=== PATIENT | male | born 1955 | race Caucasian/White ===

== ENCOUNTER 2020-08-26 10:26 | Outpatient (REF) | payer MEDICARE, SELFPAY ==
[2020-08-26 11:00] LABS: Estimated Average Glucose 105 mg/dL; Hemoglobin A1c % 5.3 %
[2020-08-26 11:20] LABS: Alanine Aminotransferase 20 U/L (0-40); Albumin Level 3.5 g/dL (3.5-5.0); Alkaline Phosphatase 54 U/L (39-117); Aspartate Amino Transferase 18 U/L (5-37); Bilirubin Direct < 0.2 mg/dL (0.0-0.5); Bilirubin Total 0.4 mg/dL (0.0-1.0); Cholesterol 133 mg/dL; Creatinine Urine 114.78 mg/dL; HDL Cholesterol 47 mg/dL; LDL Cholesterol Calculated 64 mg/dl; Microalbum/Creatinine Ratio Ur 8.7 ug/mg cr; Total Protein 6.2 g/dL (6.5-8.0); Triglycerides 113 mg/dL
[2020-08-26 13:03] LABS: Reflex LDLD? No
== END 2020-08-26 10:27 | disposition home or self-care (01) ==
LOC: HO.LNP 10:26
PROVIDERS: PCP Internal Medicine; Visit Provider Internal Medicine
DX: E11.9 Type 2 diabetes mellitus without complications (principal); E78.00 Pure hypercholesterolemia, unspecified
CPT/HCPCS: 80061; 80076; 82043; 83036

== ENCOUNTER 2020-11-13 21:27 | Emergency (ER) | payer MEDICARE, SELFPAY ==
--- NOTE | ~2020-11-13 | CT_ITS ---
EXAMINATION: CT ABDOMEN AND PELVIS WITH CONTRAST CLINICAL INFORMATION: Lower abdominal pain. colitis? appendicitis? COMPARISON: CT abdomen pelvis 03/20/2016 TECHNIQUE: Multidetector volumetric images were obtained from the superior aspect of the liver through the pubic symphysis following administration 85 mL of Omnipaque 350 intravenous contrast. Sagittal and coronal reformatted images were obtained on the technologist's workstation. Oral contrast: No This CT examination was performed using dose optimization techniques as appropriate, variously including the following: *Automated exposure control *Adjustment of mA and/or kV according to patient size (this includes techniques or standardized protocols for targeted exams where dose is matched to indication/reason for exam; i.e. extremities or head) *Use of iterative reconstruction technique DLP: 770 mGy-cm FINDINGS: LUNG BASES: The visualized lung bases are unremarkable. LIVER, GALLBLADDER, AND BILIARY TREE: The liver is normal in size, shape, and attenuation. No focal hepatic lesion or biliary ductal dilatation is present. The gallbladder is contracted but otherwise unremarkable with no evidence of radiopaque gallstones, gallbladder wall thickening, or obvious pericholecystic inflammatory changes. PANCREAS: Unremarkable. SPLEEN: Unremarkable. ADRENAL GLANDS: Unremarkable. KIDNEYS AND URETERS: The kidneys are normal in size, shape, and attenuation. No hydronephrosis, hydroureter, or calculi seen. No perinephric stranding. BLADDER: Unremarkable. GASTROINTESTINAL TRACT: Diverticular changes are present throughout the colon, most marked in the sigmoid. In the mid sigmoid there are phlegmonous changes and wall thickening consistent with acute diverticulitis. No extraluminal air or drainable pericolonic fluid collections are seen. These findings of diverticulitis are new when compared to the 2016 study. The small and large bowel are otherwise unremarkable. The appendix is unremarkable. ABDOMINAL WALL: No significant hernia is appreciated. Tiny bilateral inguinal hernia seen containing only fat. LYMPH NODES: No retroperitoneal lymphadenopathy. VASCULAR: Marked calcific plaque present in the aorta and iliofemoral vessels. No aneurysm. PELVIC VISCERA: Prostate and seminal vesicles appear normal. OSSEOUS STRUCTURES: Degenerative changes present in the spine most marked at L2-L3 L3-L4 and L5-S1. There is minimal anterolisthesis present of L4 upon L5. No bony destructive lesions seen. CT/CT abdomen pelvis w con IMPRESSION: Acute uncomplicated sigmoid diverticulitis.
[2020-11-13 21:45] VITALS: BP 112/70; PULSE 74; RESP 18; TEMP 36.8; O2SAT 95; BMI 37.5
--- NOTE | 2020-11-13 22:43 | ED_ITS ---
HPI - Male Genitourinary General Chief complaint: Urogenital-Male Stated complaint: pain in groin Time Seen by Provider: 11/13/20 22:13 Source: patient Mode of arrival: ambulatory Limitations: no limitations History of Present Illness HPI Narrative: Patient presents to ED for bilateral lower abdominal pain. Patient denies any dysuria, hematuria, diarrhea, fever, chills, testicular pain, flank pain, or any blood in stool. Patient states history of colitis and UTI. Patient denies any testicular pain, penile discharge, or penile lesions. Patient denies any groin pain. Related Data Previous Rx's Medication Instructions Recorded ciprofloxacin HCl 500 mg tablet 500 mg PO Q12H 7 Days #14 tab 11/14/20 metronidazole 500 mg tablet 500 mg PO Q12H #14 tab 11/14/20 naproxen 500 mg tablet 500 mg PO BID PRN #20 tab 11/14/20 Allergies Allergy/AdvReac Type Severity Reaction Status Date / Time cephalexin [From KEFLEX] Allergy Intermediate RASH Verified 11/13/20 21:52 codeine [CODEINE] Allergy Intermediate RASH Verified 11/13/20 21:52 sulfamethoxazole Allergy Intermediate RASH Verified 11/13/20 21:52 [From SEPTRA] trimethoprim [From SEPTRA] Allergy Intermediate RASH Verified 11/13/20 21:52 Review of Systems Review of Systems: Yes all other systems are reviewed and are negative Constitutional: Constitutional: Reports as per HPI and Reports no additional constitutional complaints Eyes: Eyes: Reports as per HPI and Reports no additional eye complaints ENT: Reports system reviewed and no additional complaints, except as documented and Reports as per HPI Cardiovascular: Cardiovascular: Reports as per HPI and Reports no additional cardiovascular complaints Respiratory: Respiratory: Reports as per HPI and Reports no additional respiratory complaints Gastrointestinal: Gastrointestinal: Reports as per HPI, Reports no additional gastrointestinal complaints and Reports abdominal pain Genitourinary: Genitourinary: Reports no additional male genitourinary complaints and Reports as per HPI Musculoskeletal: Musculoskeletal: Reports no additional musculoskeletal complaints and Reports as per HPI Integumentary/Breasts: Skin/Breast: Reports system reviewed and no additional complaints, except as docu and Reports as per HPI Neurologic: Reports system reviewed and no additional complaints, except as documented and Reports as per HPI Psychiatric: Psychiatric: Reports no additional psychiatric complaints and Reports as per HPI [facility] Past Medical History Medical History (Updated 11/14/20 @ 00:58 by DANIELLE Melton) Depression Enlarged prostate GERD (gastroesophageal reflux disease) Heart attack HTN (hypertension) Hyperlipidemia UTI (urinary tract infection) Surgical History (Updated 11/13/20 @ 21:50 by Shilpa Llamas) H/O heart artery stent Social History Social History Advance Directives: No Advance Directives Information Provided: No Physical Exam Vital Signs: Vital Signs: Last Vital Signs Temp 98.8 F 11/14/20 00:58 Pulse 73 11/14/20 00:58 Resp 16 11/14/20 00:58 BP 118/78 11/14/20 00:58 Pulse Ox 96 11/14/20 00:58 Body Mass Index 37.5 Const: General: cooperative, healthy appearing, comfortable, no acute distress, well developed, alert, awake and Physically active Orientation/c onsciousness: patient oriented x3 HENMT: Head: Yes normal to inspection, Yes No palpable skull fracture present, Yes normocephalic, Yes atraumatic and No abrasion Eyes: General: appearance normal, both eyes and all related structures Neck: Neck: Yes normal visual inspection, Yes full ROM, Yes no lymphadenopathy, Yes no meningeal signs, Yes trachea midline, Yes supple and No tender Chest: Chest palpation & inspection: normal inspection of the chest and normal palpation of entire chest wall Resp: Effort & Inspection: normal respiratory effort and able to speak in complete sentences Auscultation: clear to auscultation bilaterally Cardio: Jugular venous distension: no JVD Heart sounds: S1 normal heart tiago nd present and S2 normal heart sound present GI: Inspection: Yes normal to inspection and No abdominal wall ecchymosis Palpation (GI): Soft to palpation, not firm, Tenderness to palpation present (GI) in the LLQ and in the RLQ; Negative for not periumbilically, not suprapubicly, Hayes's sign negative, obturator sign negative, psoas sign negative, with no rebound tenderness and Rovsing's sign negative and no guarding : General: No CVA tenderness and Yes no CVA tenderness Back/Spine/Pelvis: Back: no CVA tenderness, No CVA tenderness and No back tenderness Skin: General skin exam: no rashes or lesions noted and elasticity normal Neuro: General: patient oriented x3, no meningeal signs and CN's II-XI intact bilaterally Cranial nerves: Yes CN's II-XII intact bilaterally Extrem: General: Yes normal to inspection and Yes full ROM Psych: Appearance: grossly normal, well kempt and not disheveled Course Course Course Narrative: Urinalysis sent. Reevaluation(s) Reevaluation #1: UA came back negative for UTI. Will do labs and send patient for abdominal CT scan to evaluate lower abdominal pain. Time: 23:10 Reevaluation #2: labs are at baseline. CT scan pending. Case sigend out to DANIELLE CABRERA. patient is not in any distress. Reevaluation #3: CT scan shows diverticulitis. Patient will be discharged. Time: 13:02 MDM - Male Genitourinary MDM Narrative Medical decision making narrative: Abdominal pain Lab Data Result diagrams: 11/13/20 23:08 11/13/20 23:08 Labs: Lab Results 11/13/20 11/13/20 11/13/20 Range/Units 22:38 23:08 23:08 WBC 8.6 (4.8-10.8) X10*3/uL RBC 4.38 L (4.60-5.80) X10*6/uL Hgb 13.1 L (14.0-18.0) g/dl Hct 39.2 L (42-52) % MCV 89.5 (80-98) fL MCH 29.9 (27.0-33.0) pg MCHC 33.4 (31.0-36.0) g/dl RDW 13.5 (11.0-16.0) % Plt Count 151 L (160-400) X10*3/uL MPV 9.4 (9.4-12.4) fL Immature Gran % (Auto) 0.3 (0.0-0.4) % Neut % (Auto) 69.6 (45-73) % Lymph % (Auto) 18.5 L (20-40) % [place] % (Auto) 9.5 (2-11) % Eos % (Auto) 1.6 (0-4) % Baso % (Auto) 0.5 (0-2) % Lymph # (Auto) 1.6 (1.2-4.9) X10*3/uL [place] # (Auto) 0.8 (0.1-1.2) X10*3/uL Eos # (Auto) 0.1 (0.0-0.4) X10*3/uL Baso # (Auto) 0.0 (0.0-0.2) X10*3/uL Abs Immat Gran (auto) 0.03 (0.00-0.03) X10*3/uL Absolute Neuts (auto) 6.0 (2.0-8.3) X10*3/uL Absolute Nucleated RBC 0.000 (0.0-0.012) X10*3/uL Nucleated RBC % (auto) 0.0 (0.0-0.2) /100WBC Sodium 141 (135-145) mmol/L Potassium 4.0 (3.3-5.1) mmol/L Chloride 106 (96-108) mmol/L Carbon Dioxide 27 (22-29) mmol/L Anion Gap 12 (12-20) BUN 11 (9-16) mg/dL Creatinine 0.77 (0.5-1.4) mg/dL Estim Creat Clear Calc 109.5 Estimated GFR > 60 Random Glucose 106 (60-115) mg/dL Calcium 8.6 (8.4-10.2) mg/dL Total Bilirubin 0.5 (0.0-1.0) mg/dL AST 16 (5-37) U/L ALT 18 (0-40) U/L Alkaline Phosphatase 53 (39-117) U/L Total Protein 6.5 (6.5-8.0) g/dL Albumin 3.6 (3.5-5.0) g/dL Urine Color YELLOW Urine Appearance CLEAR Urine pH 7.0 (5.0-8.0) Ur Specific [place] 1.010 (1.005-1.025) Urine Protein NEG (NEG-TRACE) MG/DL Urine Glucose (UA) NEG (NEG) MG/DL Urine Ketones NEG (NEG) MG/DL Urine Blood NEG (NEG) Urine Nitrite NEG (NEG) Ur Leukocyte Esterase NEG (NEG) Discharge Plan Discharge Clinical Impression: Diverticulitis Patient Disposition: Home, Self-Care Instructions: Diverticulitis (ED) Additional Instructions: Abdominal CT scan shows diverticulitis. He will need oral antibiotics. You will be discharged with pain medication. Return to the ED for worsening pain, fever, chills, nausea, vomiting, worsening abdominal pain, blood in stool, or any other concerning symptoms. Please follow up with PCP Prescriptions: New ciprofloxacin HCl 500 mg tablet 500 mg PO Q12H 7 Days Qty: 14 RF: 0 metronidazole 500 mg tablet 500 mg PO Q12H Qty: 14 RF: 0 naproxen 500 mg tablet 500 mg PO BID PRN (Reason: pain) Qty: 20 RF: 0 Print Language: Icelandic
[2020-11-13 22:44] LABS: Glucose Urine UA NEG (NEG); Leukocyte Esterase Urine NEG (NEG); Nitrite Urine NEG (NEG); Urine Blood NEG (NEG); Urine Ketones NEG (NEG); Urine Protein NEG (NEG-TRACE)
[2020-11-13 22:45] LABS: Appearance Urine CLEAR; Color Urine YELLOW
[2020-11-13 23:13] LABS: Basophils Percent Auto 0.5 % (0-2); Eosinophils Absolute Auto 0.1 X10*3/uL (0.0-0.4); Eosinophils Percent Auto 1.6 % (0-4); Hematocrit 39.2 % (42-52); Hemoglobin 13.1 g/dl (14.0-18.0); Imm Gran Abs Auto 0.03 X10*3/uL (0.00-0.03); Imm Gran Pct Auto 0.3 % (0.0-0.4); Lymphocytes Absolute Auto 1.6 X10*3/uL (1.2-4.9); Lymphocytes Percent Auto 18.5 % (20-40); MANUAL DIFF FLAG NO; Mean Corpuscular HGB Conc 33.4 g/dl (31.0-36.0); Mean Corpuscular Hemoglobin 29.9 pg (27.0-33.0); Mean Corpuscular Volume 89.5 fL (80-98); Mean Platelet Volume 9.4 fL (9.4-12.4); Monocytes Absolute Auto 0.8 X10*3/uL (0.1-1.2); Monocytes Percent Auto 9.5 % (2-11); Neutrophils Percent Auto 69.6 % (45-73); Platelet Count 151 X10*3/uL (160-400); Red Blood Count 4.38 X10*6/uL (4.60-5.80); Red Cell Distribution Width 13.5 % (11.0-16.0); White Blood Count 8.6 X10*3/uL (4.8-10.8)
[2020-11-13 23:40] LABS: Alanine Aminotransferase 18 U/L (0-40); Albumin Level 3.6 g/dL (3.5-5.0); Alkaline Phosphatase 53 U/L (39-117); Anion Gap 12 (12-20); Aspartate Amino Transferase 16 U/L (5-37); Bilirubin Total 0.5 mg/dL (0.0-1.0); Blood Urea Nitrogen 11 mg/dL (9-16); Calcium 8.6 mg/dL (8.4-10.2); Carbon Dioxide 27 mmol/L (22-29); Chloride 106 mmol/L (96-108); Creatinine Clr Calc Pharmacy 109.5; Estimated Glomerular Filt Rate > 60; Glucose Random 106 mg/dL (60-115); Sodium 141 mmol/L (135-145); Total Protein 6.5 g/dL (6.5-8.0)
[2020-11-14] MEDS: iohexoL 350 MG/ML 100 ML INFUS..BTL IV (00:36)
[2020-11-14 00:58] VITALS: BP 118/78; PULSE 73; RESP 16; TEMP 37.1; O2SAT 96
== END 2020-11-14 01:13 | disposition home or self-care (01) ==
PROVIDERS: Physician Assistant; Emergency Provider Emergency Medicine; PCP Internal Medicine
DX: K57.92 Diverticulitis of intestine, part unspecified, without perforation or abscess without bleeding (principal); I10 Essential (primary) hypertension
CPT/HCPCS: 36415; 74177; 80053; 81003; 85025; 99284; Q9967

== ENCOUNTER 2020-12-07 17:07 | Emergency (ER) | payer MEDICARE, SELFPAY ==
[2020-12-07 17:28] VITALS: BP 139/74; PULSE 69; RESP 16; TEMP 36.6; O2SAT 98; BMI 37.5
[2020-12-07 19:30] LABS: MANUAL DIFF FLAG NO
[2020-12-07 19:32] LABS: Basophils Percent Auto 0.5 % (0-2); Eosinophils Absolute Auto 0.2 X10*3/uL (0.0-0.4); Eosinophils Percent Auto 2.6 % (0-4); Hematocrit 41.3 % (42-52); Hemoglobin 13.8 g/dl (14.0-18.0); Imm Gran Abs Auto 0.02 X10*3/uL (0.00-0.03); Imm Gran Pct Auto 0.3 % (0.0-0.4); Lymphocytes Absolute Auto 2.1 X10*3/uL (1.2-4.9); Lymphocytes Percent Auto 27.2 % (20-40); Mean Corpuscular HGB Conc 33.4 g/dl (31.0-36.0); Mean Corpuscular Hemoglobin 29.6 pg (27.0-33.0); Mean Corpuscular Volume 88.6 fL (80-98); Mean Platelet Volume 9.4 fL (9.4-12.4); Monocytes Absolute Auto 0.6 X10*3/uL (0.1-1.2); Monocytes Percent Auto 7.3 % (2-11); Neutrophils Absolute Auto 4.7 X10*3/uL (2.0-8.3); Neutrophils Percent Auto 62.1 % (45-73); Platelet Count 176 X10*3/uL (160-400); Red Blood Count 4.66 X10*6/uL (4.60-5.80); Red Cell Distribution Width 13.3 % (11.0-16.0); White Blood Count 7.6 X10*3/uL (4.8-10.8)
[2020-12-07 19:35] LABS: Glucose Urine UA NEG (NEG); Leukocyte Esterase Urine NEG (NEG); Nitrite Urine NEG (NEG); Specific Gravity - Urine <= 1.005 (1.005-1.025); Urine Blood NEG (NEG); Urine Ketones NEG (NEG); Urine Protein NEG (NEG-TRACE)
[2020-12-07 19:39] LABS: Appearance Urine CLEAR; Color Urine YELLOW
--- NOTE | 2020-12-07 19:43 | ED_ITS ---
HPI - Abdominal Pain General Chief Complaint: Abdominal Pain Stated Complaint: back pain Time Seen by Provider: 12/07/20 19:43 Source: patient Mode of arrival: ambulatory Limitations: no limitations History of Present Illness HPI narrative: Patient complaining of left flank pain for last 3 days associated with nausea patient took the course of Flagyl and Cipro for diverticulitis diagnosed on 11/14 no kidney stone in the past pain get worse and patient moves no nausea no vomiting no diarrhea no melena no dysuria no blood in the urine no fever or chills patient has good appetite Related Data Previous Rx's Medication Instructions Recorded ciprofloxacin HCl 500 mg tablet 500 mg PO Q12H 7 Days #14 tab 11/14/20 metronidazole 500 mg tablet 500 mg PO Q12H #14 tab 11/14/20 naproxen 500 mg tablet 500 mg PO BID PRN #20 tab 11/14/20 tramadol 50 mg tablet 50 mg PO Q6H PRN #20 tab 12/07/20 Allergies Allergy/AdvReac Type Severity Reaction Status Date / Time cephalexin [From KEFLEX] Allergy Intermediate RASH Verified 12/07/20 17:33 codeine [CODEINE] Allergy Intermediate RASH Verified 12/07/20 17:33 sulfamethoxazole Allergy Intermediate RASH Verified 12/07/20 17:33 [From SEPTRA] trimethoprim [From SEPTRA] Allergy Intermediate RASH Verified 12/07/20 17:33 Review of Systems Review of Systems Yes all other systems are reviewed and are negative Physical Exam Vital Signs: Vital Signs: Last Vital Signs Temp 97.8 F 12/07/20 17:28 Pulse 66 12/07/20 19:56 Resp 16 12/07/20 19:56 BP 122/70 12/07/20 19:56 Pulse Ox 98 12/07/20 19:56 Body Mass Index 37.5 Appearance: Alert. Oriented X3. No acute distress. Eyes: No pallor or icterus ENT: Pharynx normal. Oral Mucosa moist Neck: Normal inspection. Neck supple. CVS: Normal heart rate and rhythm. Pulses normal. Respiratory: No respiratory distress. Equal air entry bilateral, no wheezing/rales/rhonchi Abdomen: Soft and nontender. Bowel sounds are present, no mass palpable, left lumbar paraspinal tenderness Skin: Skin warm and dry. Normal skin color. Normal skin turgor. Extremities: No lower extremity edema. No calf tenderness Neuro: Oriented X 3. No motor deficit. No sensory deficit.No cerebellar signs , cranial nerves II-XII intact MDM - Abdominal Pain MDM Narrative Medical decision making narrative: Patient with left-sided flank pain with negative CT scan in the past for stones pain is more muscular when he moves pain get worse urine is negative labs negative patient feeling better after oxycodone will discharge patient home on tramadol Lab Data Attestation: I reviewed the patient's lab results. Result diagrams: 12/07/20 19:23 12/07/20 19:20 Labs: Lab Results 12/07/20 12/07/20 12/07/20 Range/Units 19:20 19:20 19:23 WBC 7.6 (4.8-10.8) X10*3/uL RBC 4.66 (4.60-5.80) X10*6/uL Hgb 13.8 L (14.0-18.0) g/dl Hct 41.3 L (42-52) % MCV 88.6 (80-98) fL MCH 29.6 (27.0-33.0) pg MCHC 33.4 (31.0-36.0) g/dl RDW 13.3 (11.0-16.0) % Plt Count 176 (160-400) X10*3/uL MPV 9.4 (9.4-12.4) fL Immature Gran % (Auto) 0.3 (0.0-0.4) % Neut % (Auto) 62.1 (45-73) % Lymph % (Auto) 27.2 (20-40) % [place] % (Auto) 7.3 (2-11) % Eos % (Auto) 2.6 (0-4) % Baso % (Auto) 0.5 (0-2) % Lymph # (Auto) 2.1 (1.2-4.9) X10*3/uL [place] # (Auto) 0.6 (0.1-1.2) X10*3/uL Eos # (Auto) 0.2 (0.0-0.4) X10*3/uL Baso # (Auto) 0.0 (0.0-0.2) X10*3/uL Abs Immat Gran (auto) 0.02 (0.00-0.03) X10*3/uL Absolute Neuts (auto) 4.7 (2.0-8.3) X10*3/uL Absolute Nucleated RBC 0.000 (0.0-0.012) X10*3/uL Nucleated RBC % (auto) 0.0 (0.0-0.2) /100WBC Sodium 143 (135-145) mmol/L Potassium 4.4 (3.3-5.1) mmol/L Chloride 108 (96-108) mmol/L Carbon Dioxide 28 (22-29) mmol/L Anion Gap 11 L (12-20) BUN 10 (9-16) mg/dL Creatinine 0.73 (0.5-1.4) mg/dL Estim Creat Clear Calc 115.5 Estimated GFR > 60 Random Glucose 95 (60-115) mg/dL Calcium 8.9 (8.4-10.2) mg/dL Total Bilirubin 0.5 (0.0-1.0) mg/dL Direct Bilirubin 0.2 (0.0-0.5) mg/dL AST 20 (5-37) U/L ALT 21 (0-40) U/L Alkaline Phosphatase 56 (39-117) U/L Total Protein 7.2 (6.5-8.0) g/dL Albumin 4.0 (3.5-5.0) g/dL Lipase 28 (8-78) U/L Urine Color YELLOW Urine Appearance CLEAR Urine pH 6.0 (5.0-8.0) Ur Specific [place] <= 1.005 (1.005-1.025) Urine Protein NEG (NEG-TRACE) MG/DL Urine Glucose (UA) NEG (NEG) MG/DL Urine Ketones NEG (NEG) MG/DL Urine Blood NEG (NEG) Urine Nitrite NEG (NEG) Ur Leukocyte Esterase NEG (NEG) Discharge Plan Discharge Clinical Impression: Acute lumbar myofascial strain Qualifiers: Encounter type: initial encounter Qualified Code(s): S39.012A - Strain of muscle, fascia and tendon of lower back, initial encounter Patient Disposition: Home, Self-Care Instructions: Acute Low Back Pain (ED) Additional Instructions: Rest at home take pain medication as prescribed Follow with PCP if not better Report to ER if increased abdominal pain/fever/vomiting Prescriptions: New tramadol 50 mg tablet 50 mg PO Q6H PRN (Reason: pain) Qty: 20 RF: 0 No Action ciprofloxacin HCl 500 mg tablet 500 mg PO Q12H 7 Days Qty: 14 RF: 0 metronidazole 500 mg tablet 500 mg PO Q12H Qty: 14 RF: 0 naproxen 500 mg tablet 500 mg PO BID PRN (Reason: pain) Qty: 20 RF: 0 PMFSH Past Medical History Medical History Depression Enlarged prostate GERD (gastroesophageal reflux disease) Heart attack HTN (hypertension) Hyperlipidemia UTI (urinary tract infection) Surgical History H/O heart artery stent Social History Social History Advance Directives: No Advance Directives Information Provided: No
[2020-12-07 19:44] LABS: Anion Gap 11 (12-20); Blood Urea Nitrogen 10 mg/dL (9-16); Calcium 8.9 mg/dL (8.4-10.2); Carbon Dioxide 28 mmol/L (22-29); Chloride 108 mmol/L (96-108); Creatinine Clr Calc Pharmacy 115.5; Estimated Glomerular Filt Rate > 60; Glucose Random 95 mg/dL (60-115); Potassium 4.4 mmol/L (3.3-5.1); Sodium 143 mmol/L (135-145)
[2020-12-07] MEDS: oxyCODONE HCl Immed Release 5 MG TABLET PO (19:54)
[2020-12-07 19:56] VITALS: BP 122/70; PULSE 66; RESP 16; O2SAT 98
[2020-12-07 20:11] LABS: Alanine Aminotransferase 21 U/L (0-40); Alkaline Phosphatase 56 U/L (39-117); Aspartate Amino Transferase 20 U/L (5-37); Bilirubin Direct 0.2 mg/dL (0.0-0.5); Bilirubin Total 0.5 mg/dL (0.0-1.0); Lipase 28 U/L (8-78); Total Protein 7.2 g/dL (6.5-8.0)
== END 2020-12-07 20:48 | disposition home or self-care (01) ==
PROVIDERS: Emergency Provider Internal Medicine; PCP Internal Medicine
DX: S39.012A Strain of muscle, fascia and tendon of lower back, initial encounter (principal); X58.XXXA Exposure to other specified factors, initial encounter; I10 Essential (primary) hypertension; Y93.9 Activity, unspecified; Y92.9 Unspecified place or not applicable; Y99.9 Unspecified external cause status
CPT/HCPCS: 36415; 80048; 80076; 81003; 83690; 85025; 99283; 99284

== ENCOUNTER 2020-12-23 16:05 | Outpatient (REF) | payer MEDICARE, SELFPAY ==
--- NOTE | ~2020-12-23 | US_ITS ---
EXAMINATION: US VENOUS ULTRASOUND WITH DOPPLER LOWER EXTREMITY, RIGHT CLINICAL INFORMATION: History of DVT with right lower extremity pain COMPARISON: None TECHNIQUE: Ultrasound of the deep veins is performed from the hip to the calf with compression sonography and color and pulse Doppler assessment. Spectral analysis with color-flow imaging is performed. FINDINGS: There is normal venous compression and respiratory variation and augmented flow. The visualized common femoral vein, superficial femoral vein, profunda femoral vein, popliteal vein, and the trifurcation region shows no evidence of deep venous thrombosis. There is no significant popliteal fossa cyst. If the patient's symptoms persist, followup ultrasound in 5 days 7 days might be of value to exclude proximal propagation from a non-visualized calf vein. US/US venous duplex LE RT IMPRESSION: No DVT demonstrated in the right lower extremity.
[2020-12-23 16:54] LABS: Blood Urea Nitrogen 15 mg/dL (9-16); Estimated Glomerular Filt Rate > 60
== END 2020-12-23 16:06 | disposition home or self-care (01) ==
LOC: HO.US 16:05
PROVIDERS: PCP Internal Medicine; Visit Provider Internal Medicine
DX: R60.0 Localized edema (principal); K57.32 Diverticulitis of large intestine without perforation or abscess without bleeding; M79.89 Other specified soft tissue disorders
CPT/HCPCS: 36415; 82565; 84520; 93971

== ENCOUNTER 2020-12-30 12:58 | Outpatient (REF) | payer MEDICARE, SELFPAY ==
--- NOTE | ~2020-12-30 | CT_ITS ---
EXAMINATION: CT ABDOMEN AND PELVIS WITH CONTRAST CLINICAL INFORMATION: Diverticulitis COMPARISON: Previous CT of the abdomen and pelvis November 2020 TECHNIQUE: Multidetector volumetric images were obtained from the superior aspect of the liver through the pubic symphysis following administration 85 mL of Omnipaque 350 intravenous contrast. Sagittal and coronal reformatted images were obtained on the technologist's workstation. Oral contrast: Yes This CT examination was performed using dose optimization techniques as appropriate, variously including the following: *Automated exposure control *Adjustment of mA and/or kV according to patient size (this includes techniques or standardized protocols for targeted exams where dose is matched to indication/reason for exam; i.e. extremities or head) *Use of iterative reconstruction technique DLP: 641 mGy-cm FINDINGS: LUNG BASES: The visualized lung bases are unremarkable. LIVER, GALLBLADDER, AND BILIARY TREE: The liver is normal in size, shape, and attenuation. No focal hepatic lesion or biliary ductal dilatation is present. The gallbladder is unremarkable with no evidence of radiopaque gallstones, gallbladder wall thickening, or obvious pericholecystic inflammatory changes. PANCREAS: Unremarkable. SPLEEN: Unremarkable. ADRENAL GLANDS: Unremarkable. KIDNEYS AND URETERS: The kidneys are normal in size, shape, and attenuation. No hydronephrosis, hydroureter, or calculi seen. No perinephric stranding. BLADDER: Unremarkable. GASTROINTESTINAL TRACT: There is diverticulosis of the colon. The previously identified diverticulitis of the sigmoid colon has resolved. Throughout the colon questionable for constipation. Small and large bowel is otherwise unremarkable. The stomach is not optimally distended. The appendix is unremarkable. ABDOMINAL WALL: No significant hernia is appreciated. LYMPH NODES: Normal. VASCULAR: There is evidence of atherosclerotic disease. No aneurysm is seen. PELVIC VISCERA: Unremarkable. OSSEOUS STRUCTURES: There are degenerative changes of the spine. CT/CT abdomen pelvis w con IMPRESSION: Diverticulosis of the colon. Resolved sigmoid diverticulitis from November 2020.
[2020-12-30] MEDS: iohexoL 350 MG/ML 100 ML INFUS..BTL IV (15:49)
[2020-12-30] MEDS: Barium Sulfate Oral (Mocha) 450 ML ORAL.SUSP 900 ML PO (15:49)
== END 2020-12-30 12:59 | disposition home or self-care (01) ==
LOC: HO.CT 12:58
PROVIDERS: PCP Internal Medicine; Visit Provider Internal Medicine
DX: K57.32 Diverticulitis of large intestine without perforation or abscess without bleeding (principal)
CPT/HCPCS: 74177; Q9967

== ENCOUNTER 2021-02-18 10:57 | Outpatient (REF) | payer MEDICARE, SELFPAY ==
[2021-02-18 11:02] LABS: MANUAL DIFF FLAG NO
[2021-02-18 11:38] LABS: Basophils Percent Auto 0.7 % (0-2); Eosinophils Absolute Auto 0.3 X10*3/uL (0.0-0.4); Eosinophils Percent Auto 4.7 % (0-4); Hematocrit 42.7 % (42.0-52.0); Hemoglobin 13.9 g/dl (14.0-18.0); Imm Gran Abs Auto 0.02 X10*3/uL (0.00-0.03); Imm Gran Pct Auto 0.3 % (0.0-0.4); Lymphocytes Absolute Auto 1.7 X10*3/uL (1.2-4.9); Lymphocytes Percent Auto 26.9 % (20-40); Mean Corpuscular HGB Conc 32.6 g/dl (31.0-36.0); Mean Corpuscular Hemoglobin 29.6 pg (27.0-33.0); Mean Corpuscular Volume 90.9 fL (80.0-98.0); Mean Platelet Volume 10.4 fL (9.4-12.4); Monocytes Absolute Auto 0.5 X10*3/uL (0.1-1.2); Monocytes Percent Auto 8.1 % (2-11); Neutrophils Absolute Auto 3.6 x10*3/uL (2.0-8.3); Neutrophils Percent Auto 59.3 % (45-73); Platelet Count 149 X10*3/uL (160-400); Red Cell Distribution Width 13.6 % (11.0-16.0); White Blood Count 6.1 X10*3/uL (4.8-10.8)
[2021-02-18 11:48] LABS: Appearance Urine CLEAR; Color Urine YELLOW; Glucose Urine UA NEG (NEG); Leukocyte Esterase Urine NEG (NEG); Nitrite Urine NEG (NEG); Urine Blood NEG (NEG); Urine Ketones NEG (NEG); Urine Protein NEG (NEG-TRACE)
[2021-02-18 11:54] LABS: Estimated Average Glucose 105 mg/dL; Hemoglobin A1c % 5.3 %
[2021-02-18 12:04] LABS: Creatinine Urine 100.91 mg/dL; Microalbum/Creatinine Ratio Ur 7.9 ug/mg cr
[2021-02-18 12:49] LABS: Alanine Aminotransferase 19 U/L (0-40); Albumin Level 3.5 g/dL (3.5-5.0); Alkaline Phosphatase 50 U/L (39-117); Anion Gap 13 (12-20); Aspartate Amino Transferase 15 U/L (5-37); Bilirubin Total 0.4 mg/dL (0.0-1.0); Blood Urea Nitrogen 13 mg/dL (9-16); Calcium 8.5 mg/dL (8.4-10.2); Carbon Dioxide 28 mmol/L (22-29); Chloride 105 mmol/L (96-108); Cholesterol 113 mg/dL; Estimated Glomerular Filt Rate > 60; Glucose Fasting 115 mg/dL (60-99); HDL Cholesterol 41 mg/dL; LDL Cholesterol Calculated 58 mg/dl; Potassium 4.5 mmol/L (3.3-5.1); Sodium 141 mmol/L (135-145); Total Protein 6.5 g/dL (6.5-8.0); Triglycerides 71 mg/dL
[2021-02-18 13:12] LABS: PSA,Total (Free>4and<10) 1.12 ng/mL (0.00-4.00)
[2021-02-18 14:01] LABS: Reflex LDLD? No
== END 2021-02-18 10:58 | disposition home or self-care (01) ==
LOC: HO.LNP 10:57
PROVIDERS: Visit Provider Internal Medicine
DX: Z00.00 Encounter for general adult medical examination without abnormal findings (principal); E11.9 Type 2 diabetes mellitus without complications; E78.6 Lipoprotein deficiency; E78.00 Pure hypercholesterolemia, unspecified
CPT/HCPCS: 80053; 80061; 81003; 82043; 83036; 84153; 85025

== ENCOUNTER 2021-08-19 10:54 | Outpatient (REF) | payer MEDICARE, SELFPAY ==
[2021-08-19 11:29] LABS: Estimated Average Glucose 108 mg/dL; Hemoglobin A1c % 5.4 %
[2021-08-19 11:35] LABS: Alanine Aminotransferase 21 U/L (0-40); Albumin Level 3.6 g/dL (3.5-5.0); Alkaline Phosphatase 60 U/L (39-117); Aspartate Amino Transferase 20 U/L (5-37); Bilirubin Direct 0.2 mg/dL (0.0-0.5); Bilirubin Total 0.4 mg/dL (0.0-1.0); Cholesterol 129 mg/dL; Glucose Fasting 107 mg/dL (60-99); HDL Cholesterol 38 mg/dL; LDL Cholesterol Calculated 66 mg/dl; Total Protein 6.8 g/dL (6.5-8.0); Triglycerides 125 mg/dL
[2021-08-19 11:47] LABS: Reflex LDLD? No
== END 2021-08-19 10:55 | disposition home or self-care (01) ==
LOC: HO.LNP 10:54
PROVIDERS: PCP Internal Medicine; Visit Provider Internal Medicine
DX: E11.9 Type 2 diabetes mellitus without complications (principal); E78.00 Pure hypercholesterolemia, unspecified
CPT/HCPCS: 80061; 80076; 82947; 83036

== ENCOUNTER 2021-10-13 11:27 | Emergency (ER) | payer MEDICARE, SELFPAY | END 2021-10-13 15:08 | disposition left against medical advice (07) | PROVIDERS: Emergency Provider Emergency Medicine; PCP Internal Medicine | DX: R10.9 Unspecified abdominal pain (principal) ==

== ENCOUNTER 2022-01-02 08:30 | Outpatient (REF) | payer MEDICARE, SELFPAY ==
[2022-01-02 09:28] LABS: Anion Gap 16 (12-20); Blood Urea Nitrogen 15 mg/dL (9-16); Carbon Dioxide 28 mmol/L (22-29); Chloride 100 mmol/L (96-108); Cholesterol 113 mg/dL; Estimated Glomerular Filt Rate > 60; Glucose Random 117 mg/dL (60-115); HDL Cholesterol 42 mg/dL; LDL Cholesterol Calculated 59 mg/dl; Potassium 4.5 mmol/L (3.3-5.1); Sodium 139 mmol/L (135-145); Triglycerides 62 mg/dL
== END 2022-01-02 08:31 | disposition home or self-care (01) ==
LOC: HO.LAB 08:30
PROVIDERS: PCP Internal Medicine; Visit Provider Internal Medicine Cardiovascular Disease
DX: I25.10 Atherosclerotic heart disease of native coronary artery without angina pectoris (principal); I21.4 Non-ST elevation (NSTEMI) myocardial infarction
CPT/HCPCS: 36415; 80048; 80061

== ENCOUNTER 2022-03-03 10:58 | Outpatient (REF) | payer MEDICARE, SELFPAY ==
[2022-03-03 11:02] LABS: MANUAL DIFF FLAG NO
[2022-03-03 11:16] LABS: Basophils Absolute Auto 0.1 X10*3/uL (0.0-0.2); Basophils Percent Auto 0.7 % (0-2); Eosinophils Absolute Auto 0.2 X10*3/uL (0.0-0.4); Eosinophils Percent Auto 3.1 % (0-4); Hematocrit 42.9 % (42.0-52.0); Hemoglobin 13.6 g/dl (14.0-18.0); Imm Gran Abs Auto 0.02 X10*3/uL (0.00-0.03); Imm Gran Pct Auto 0.3 % (0.0-0.4); Lymphocytes Absolute Auto 1.9 X10*3/uL (1.2-4.9); Lymphocytes Percent Auto 28.6 % (20-40); Mean Corpuscular HGB Conc 31.7 g/dl (31.0-36.0); Mean Corpuscular Hemoglobin 28.3 pg (27.0-33.0); Mean Corpuscular Volume 89.4 fL (80.0-98.0); Mean Platelet Volume 9.8 fL (9.4-12.4); Monocytes Absolute Auto 0.5 X10*3/uL (0.1-1.2); Monocytes Percent Auto 7.8 % (2-11); Neutrophils Percent Auto 59.5 % (45-73); Platelet Count 143 X10*3/uL (160-400); Red Cell Distribution Width 14.7 % (11.0-16.0); White Blood Count 6.8 X10*3/uL (4.8-10.8)
[2022-03-03 11:40] LABS: Alanine Aminotransferase 35 U/L (0-40); Albumin Level 3.7 g/dL (3.5-5.0); Alkaline Phosphatase 65 U/L (39-117); Anion Gap 12 (12-20); Aspartate Amino Transferase 30 U/L (5-37); Bilirubin Total 0.4 mg/dL (0.0-1.0); Blood Urea Nitrogen 17 mg/dL (9-16); Calcium 8.9 mg/dL (8.4-10.2); Carbon Dioxide 29 mmol/L (22-29); Chloride 103 mmol/L (96-108); Cholesterol 120 mg/dL; Estimated Glomerular Filt Rate > 60; Glucose Fasting 94 mg/dL (60-99); HDL Cholesterol 48 mg/dL; LDL Cholesterol Calculated 58 mg/dl; Potassium 4.2 mmol/L (3.3-5.1); Sodium 140 mmol/L (135-145); Total Protein 6.7 g/dL (6.5-8.0); Triglycerides 74 mg/dL
[2022-03-03 13:12] LABS: Estimated Average Glucose 103 mg/dL; Hemoglobin A1c % 5.2 %
[2022-03-03 15:21] LABS: PSA,Total (Free>4and<10) 1.38 ng/mL (0.00-4.00)
== END 2022-03-03 10:59 | disposition home or self-care (01) ==
LOC: HO.LNP 10:58
PROVIDERS: Visit Provider Internal Medicine
DX: Z00.00 Encounter for general adult medical examination without abnormal findings (principal); Z12.5 Encounter for screening for malignant neoplasm of prostate; E11.9 Type 2 diabetes mellitus without complications; E78.00 Pure hypercholesterolemia, unspecified
CPT/HCPCS: 80053; 80061; 83036; 84153; 85025

== ENCOUNTER 2022-03-09 16:15 | Outpatient (REF) | payer MEDICARE, SELFPAY ==
[2022-03-09 16:27] LABS: Appearance Urine Clear; Color Urine Yellow; Glucose Urine UA Negative (Negative); Leukocyte Esterase Urine Negative (Negative); Nitrite Urine Negative (Negative); Urine Blood Negative (Negative); Urine Ketones Negative (Negative); Urine Protein Negative (Neg-Trace)
[2022-03-09 16:30] LABS: Bacteria Urine None Seen (None Seen); Hyaline Casts Urine 0-2 /LPF (0-2); RBC Urine 0-2 /HPF (0-2); Squamous Epithelial Cell Urine 0-2 /HPF (0-2); WBC Urine 0-5 /HPF (0-5)
[2022-03-09 16:49] LABS: Creatinine Urine 43.66 mg/dL; Microalbumin Urine < 5.0 mg/L
== END 2022-03-09 16:16 | disposition home or self-care (01) ==
LOC: HO.LNP 16:15
PROVIDERS: Visit Provider Internal Medicine
DX: E11.9 Type 2 diabetes mellitus without complications (principal)
CPT/HCPCS: 81001; 82043

== ENCOUNTER → 2022-03-19 13:52 | Outpatient (BNVA) | payer MEDICARE, SELFPAY | PROVIDERS: PCP Internal Medicine; Referring Provider Internal Medicine; Visit Provider Internal Medicine Cardiovascular Disease | DX: I25.10 Atherosclerotic heart disease of native coronary artery without angina pectoris (principal) | CPT/HCPCS: 99202 ==

== ENCOUNTER 2022-05-11 10:22 | Outpatient (REF) | payer MEDICARE, SELFPAY ==
[2022-05-11 10:26] LABS: MANUAL DIFF FLAG NO
[2022-05-11 11:22] LABS: Basophils Absolute Auto 0.1 X10*3/uL (0.0-0.2); Basophils Percent Auto 0.9 % (0-2); Eosinophils Absolute Auto 0.3 X10*3/uL (0.0-0.4); Eosinophils Percent Auto 4.1 % (0-4); Hematocrit 42.2 % (42.0-52.0); Hemoglobin 13.6 g/dl (14.0-18.0); Imm Gran Abs Auto 0.02 X10*3/uL (0.00-0.03); Imm Gran Pct Auto 0.3 % (0.0-0.4); Lymphocytes Absolute Auto 2.2 X10*3/uL (1.2-4.9); Lymphocytes Percent Auto 33.3 % (20-40); Mean Corpuscular HGB Conc 32.2 g/dl (31.0-36.0); Mean Corpuscular Hemoglobin 29.2 pg (27.0-33.0); Mean Corpuscular Volume 90.8 fL (80.0-98.0); Mean Platelet Volume 10.2 fL (9.4-12.4); Monocytes Absolute Auto 0.7 X10*3/uL (0.1-1.2); Monocytes Percent Auto 10.1 % (2-11); Neutrophils Absolute Auto 3.3 x10*3/uL (2.0-8.3); Neutrophils Percent Auto 51.3 % (45-73); Platelet Count 143 X10*3/uL (160-400); Red Blood Count 4.65 X10*6/uL (4.60-5.80); Red Cell Distribution Width 15.5 % (11.0-16.0); White Blood Count 6.5 X10*3/uL (4.8-10.8)
== END 2022-05-11 10:23 | disposition home or self-care (01) ==
LOC: HO.LNP 10:22
PROVIDERS: Visit Provider Internal Medicine
DX: D69.6 Thrombocytopenia, unspecified (principal)
CPT/HCPCS: 85025

== ENCOUNTER 2022-09-07 10:58 | Outpatient (REF) | payer MEDICARE, SELFPAY ==
[2022-09-07 12:10] LABS: Estimated Average Glucose 97 mg/dL
[2022-09-07 12:19] LABS: Alanine Aminotransferase 21 U/L (0-40); Albumin Level 3.5 g/dL (3.5-5.0); Alkaline Phosphatase 58 U/L (39-117); Aspartate Amino Transferase 22 U/L (5-37); Bilirubin Direct 0.2 mg/dL (0.0-0.5); Bilirubin Total 0.6 mg/dL (0.0-1.0); Cholesterol 111 mg/dL; Glucose Fasting 102 mg/dL (60-99); HDL Cholesterol 47 mg/dL; LDL Cholesterol Calculated 53 mg/dl; Total Protein 6.5 g/dL (6.5-8.0); Triglycerides 55 mg/dL
[2022-09-07 12:29] LABS: Reflex LDLD? No
== END 2022-09-07 10:59 | disposition home or self-care (01) ==
LOC: HO.LNP 10:58
PROVIDERS: Visit Provider Internal Medicine
DX: E11.9 Type 2 diabetes mellitus without complications (principal); E78.00 Pure hypercholesterolemia, unspecified
CPT/HCPCS: 80061; 80076; 82947; 83036

== ENCOUNTER 2022-10-20 15:22 | Outpatient (AMB) | payer MEDICARE, SELFPAY ==
--- NOTE | 2022-10-20 15:30 | A.OFFVIS_ITS ---
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 Required: No Probation Counselor: Probation Counselor Present Accompanied by: Spouse Allergies cephalexin [From KEFLEX] Allergy (Intermediate, Verified 10/13/21 16:04) RASH codeine [CODEINE] Allergy (Intermediate, Verified 10/13/21 16:04) RASH sulfamethoxazole [From SEPTRA] Allergy (Intermediate, Verified 10/13/21 16:04) RASH trimethoprim [From SEPTRA] Allergy (Intermediate, Verified 10/13/21 16:04) RASH Medication List - Last Reconciled 10/20/22 by Sanjay Martinez MD aspirin (Adult Aspirin Regimen) 81 mg PO DAILY atorvastatin 80 mg PO DAILY bupropion HCl 300 mg PO DAILY clopidogrel 75 mg PO DAILY ezetimibe 10 mg PO DAILY fluoxetine 40 mg PO DAILY ipratropium-albuterol 0.5 mg-3 mg(2.5 mg base)/3 mL mL inhalation QID metoprolol succinate ER (Toprol XL) 50 mg PO DAILY nitroglycerin (Nitrostat) 0.4 mg sublingual Q5M PRN omeprazole 20 mg PO QAM HPI HPI Comments History of Present Illness Details Antoni comes for follow-up. Denies any exertional anginal symptoms. Taking all his medication all his medications. Does complain of discomfort in his retrosternal area when he sleeps on his left, and soreness many gets up. More musculoskeletal in nature. No bleeding issues or neurologic events. No lightheadedness, syncope. [facility] Medical History CAD (coronary artery disease) Depression Enlarged prostate GERD (gastroesophageal reflux disease) Heart attack HTN (hypertension) Hyperlipidemia UTI (urinary tract infection) Surgical History H/O heart artery stent S/P CABG x 3 Stented coronary artery Review of Systems Const Denies chills, Denies fatigue, Denies fever(s), Denies frequent falls, Denies weakness, Denies weight gain and Denies weight loss ENT Denies dizziness Card Denies chest pain, Denies leg edema, Denies lightheadedness, Denies palpitations, Denies dyspnea, Denies dyspnea on exertion, Denies orthopnea and Denies other (loss of consciousness) Resp Denies cough, Denies dyspnea and Denies dyspnea on exertion GI Denies hematochezia and Denies change in stool character Musc Denies abnormal gait, Denies muscle weakness, Denies numbness, Denies radiating pain into limb and Denies tingling Neuro Denies Abnormal speech present, Denies abnormal gait, Denies dizziness, Denies frequent falls, Denies numbness, Denies tingling and Denies weakness Endo Denies fatigue and Denies palpitations Physical Exam Vital Signs: Last Vital Signs Pulse 82 10/20/22 15:32 BP 124/80 10/20/22 15:32 BMI result Body Mass Index 33.8 Const General: cooperative, comfortable, no acute distress, alert and awake Nutritional Appearance: obese Orientation/consciousness: patient oriented x3 Limitations: no limitations HEENT Head: Yes normocephalic and Yes atraumatic Neck Neck: Yes trachea midline, Yes supple and Yes no JVD Chest Chest palpation & inspection: normal inspection of the chest and other (Well- healed sternotomy scar) Resp Effort & Inspection: normal respiratory effort Auscultation: clear to auscultation bilaterally Cardio Jugular venous distension: no JVD Palpation: normal PMI Rate: regular rate Rhythm: regular rhythm Heart sounds: S1 normal heart sound present, S2 normal heart sound present, no click, no gallops, no murmurs and no rubs GI Auscultation: normal bowel sounds Skin General skin exam: no rashes or lesions noted Neuro General: patient oriented x3 and no focal motor deficits Speech: No Abnormal speech present Extrem General: Yes no clubbing, cyanosis or edema Assessment & Plan Assessment & Plan (1) CAD (coronary artery disease): Code(s): I25.10 - Atherosclerotic heart disease of [place] coronary artery without angina pectoris Plan: CAD status post coronary artery bypass grafting. No recurrent symptoms of angina. Dual antiplatelet therapy can be discontinued next month. Continue lifelong aspirin therapy. Continue high-intensity statin therapy along with ezetimibe therapy. His LDL is extremely well optimized. Encouraged to continue to participate in physical activity as tolerated along with weight loss program. Continue aggressive blood pressure control. (2) HTN (hypertension): Code(s): I10 - Essential (primary) hypertension Plan: High blood pressure which is currently well optimized advised to monitor blood pressure at home maintain a log. Goal blood pressure less than 130/84. Advised low-salt diet. Advised to participate in physical activity as tolerated along with weight loss. Follow up in the clinic 1 year's time, sooner p.r.n.. Thank you for allowing me to partake in his care Coding Level of Care Code Est Pt Level 4 (36564) Diagnoses CAD (coronary artery disease) I25.10 HTN (hypertension) I10
[2022-10-20 15:32] VITALS: BP 124/80; PULSE 82; BMI 33.8
== END 2022-10-20 15:47 | disposition home or self-care (01) ==
PROVIDERS: PCP Internal Medicine; Visit Provider Internal Medicine Cardiovascular Disease
DX: I25.10 Atherosclerotic heart disease of native coronary artery without angina pectoris (principal); I10 Essential (primary) hypertension
CPT/HCPCS: 99214

== ENCOUNTER → 2022-10-20 15:22 | Outpatient (BNVA) | payer MEDICARE, SELFPAY | PROVIDERS: PCP Internal Medicine; Visit Provider Internal Medicine Cardiovascular Disease | DX: R07.89 Other chest pain (principal); I25.10 Atherosclerotic heart disease of native coronary artery without angina pectoris; I10 Essential (primary) hypertension; Z95.5 Presence of coronary angioplasty implant and graft; Z95.1 Presence of aortocoronary bypass graft | CPT/HCPCS: 99212 ==

== ENCOUNTER 2023-03-01 11:19 | Outpatient (REF) | payer MEDICARE, SELFPAY ==
[2023-03-01 11:23] LABS: MANUAL DIFF FLAG NO
[2023-03-01 11:32] LABS: Appearance Urine Clear; Color Urine Yellow; Glucose Urine UA Negative (Negative); Leukocyte Esterase Urine Negative (Negative); Nitrite Urine Negative (Negative); Urine Blood Negative (Negative); Urine Ketones Negative (Negative); Urine Protein Negative (Neg-Trace)
[2023-03-01 11:34] LABS: Basophils Absolute Auto 0.1 X10*3/uL (0.0-0.2); Basophils Percent Auto 0.8 % (0-2); Eosinophils Absolute Auto 0.3 X10*3/uL (0.0-0.4); Eosinophils Percent Auto 4.5 % (0-4); Hematocrit 45.3 % (42.0-52.0); Hemoglobin 14.6 g/dl (14.0-18.0); Imm Gran Abs Auto 0.03 X10*3/uL (0.00-0.03); Imm Gran Pct Auto 0.5 % (0.0-0.4); Lymphocytes Absolute Auto 1.8 X10*3/uL (1.2-4.9); Lymphocytes Percent Auto 29.7 % (20-40); Mean Corpuscular HGB Conc 32.2 g/dl (31.0-36.0); Mean Corpuscular Hemoglobin 29.9 pg (27.0-33.0); Mean Corpuscular Volume 92.8 fL (80.0-98.0); Mean Platelet Volume 10.3 fL (9.4-12.4); Monocytes Absolute Auto 0.5 X10*3/uL (0.1-1.2); Neutrophils Absolute Auto 3.5 x10*3/uL (2.0-8.3); Neutrophils Percent Auto 56.5 % (45-73); Platelet Count 163 X10*3/uL (160-400); Red Blood Count 4.88 X10*6/uL (4.60-5.80); Red Cell Distribution Width 13.8 % (11.0-16.0); White Blood Count 6.2 X10*3/uL (4.8-10.8)
[2023-03-01 11:41] LABS: Estimated Average Glucose 100 mg/dL; Hemoglobin A1C 123.1626 umol/L; Hemoglobin A1c % 5.1 % (<6.0)
[2023-03-01 12:02] LABS: Creatinine Urine 77.98 mg/dL; Microalbum/Creatinine Ratio Ur 7.6 ug/mg cr (<30)
[2023-03-01 12:08] LABS: Alanine Aminotransferase 24 U/L (0-40); Albumin Level 3.6 g/dL (3.5-5.0); Alkaline Phosphatase 52 U/L (39-117); Anion Gap 11 (12-20); Aspartate Amino Transferase 24 U/L (5-37); Bilirubin Total 0.3 mg/dL (0.0-1.0); Blood Urea Nitrogen 22 mg/dL (9-16); Calcium 9.3 mg/dL (8.4-10.2); Carbon Dioxide 30 mmol/L (22-29); Chloride 104 mmol/L (96-108); Cholesterol 125 mg/dL (<200); Estimated Glomerular Filt Rate > 60; Glucose Fasting 105 mg/dL (60-99); HDL Cholesterol 52 mg/dL (>40); LDL Cholesterol Calculated 57 mg/dL (<100); Potassium 4.5 mmol/L (3.3-5.1); Sodium 140 mmol/L (135-145); Total Protein 6.9 g/dL (6.5-8.0); Triglycerides 81 mg/dL (<150)
[2023-03-01 12:20] LABS: PSA,Total (Free>4and<10) 1.49 ng/mL (0.00-4.00)
[2023-03-01 14:04] LABS: Bacteria Urine None Seen (None Seen); Hyaline Casts Urine 0-2 /LPF (0-2); RBC Urine 0-2 /HPF (0-2); Squamous Epithelial Cell Urine 0-2 /HPF (0-2); WBC Urine 0-5 /HPF (0-5)
== END 2023-03-01 11:20 | disposition home or self-care (01) ==
LOC: HO.LNP 11:19
PROVIDERS: Visit Provider Internal Medicine
DX: Z00.00 Encounter for general adult medical examination without abnormal findings (principal); Z12.5 Encounter for screening for malignant neoplasm of prostate; E78.00 Pure hypercholesterolemia, unspecified; E11.9 Type 2 diabetes mellitus without complications; D69.6 Thrombocytopenia, unspecified
CPT/HCPCS: 80053; 80061; 81001; 81003; 82043; 82570; 83036; 84153; 85025

== ENCOUNTER 2023-07-21 07:10 | Day surgery (SDC) | payer MEDICARE, SELFPAY ==
[2023-07-16 15:55] VITALS: BMI 38.8
[2023-07-21 07:45] VITALS: BMI 40.6
[2023-07-21 07:48] VITALS: BMI 40.6
--- NOTE | 2023-07-21 07:54 | P.CONAN_ITS ---
[facility] Active Problems Active Problems: All Active Problems HTN (hypertension) (Acute) CAD (coronary artery disease) (Acute) Past Medical History Medical History CAD (coronary artery disease) Depression Enlarged prostate GERD (gastroesophageal reflux disease) Heart attack HTN (hypertension) Hyperlipidemia UTI (urinary tract infection) Family History Family history of problems with anesthesia: No Surgical History Surgical History H/O heart artery stent S/P CABG x 3 Stented coronary artery History of Problems with Anesthesia: No Social History Social History Patient Tobacco Use Status: Never used Tobacco Use of substances other than those prescribed or required for medical reasons: No Are you DNR?: No Advance Directives: No Advance Directives Information Provided: Yes Meds Allergies Allergy/AdvReac Type Severity Reaction Status Date / Time cephalexin [From KEFLEX] Allergy Intermediate RASH Verified 10/13/21 16:04 codeine [CODEINE] Allergy Intermediate RASH Verified 10/13/21 16:04 sulfamethoxazole Allergy Intermediate RASH Verified 10/13/21 16:04 [From SEPTRA] trimethoprim [From SEPTRA] Allergy Intermediate RASH Verified 10/13/21 16:04 Home Medications ?Medication ?Instructions ?Recorded ?Confirmed ?Last Taken ?Type atorvastatin 80 mg tablet 80 mg PO DAILY 10/13/21 10/20/22 Unknown History bupropion HCl 300 mg 24 hr tablet, 300 mg PO DAILY 10/13/21 10/20/22 Unknown History extended release ezetimibe 10 mg tablet 10 mg PO DAILY 10/13/21 10/20/22 Unknown History fluoxetine 40 mg capsule 40 mg PO DAILY 10/13/21 10/20/22 Unknown History ipratropium 0.5 mg-albuterol 3 mg ml inhalation QID 10/13/21 10/20/22 Unknown History (2.5 mg base)/3 mL nebulization soln omeprazole 20 mg capsule,delayed 20 mg PO QAM 10/13/21 10/20/22 Unknown History release aspirin 81 mg tablet,delayed 81 mg PO DAILY 03/19/22 10/20/22 07/16/23 History release (Adult Aspirin Regimen) Tylenol 07/16/23 07/16/23 Unknown History albuterol sulfate 90 mcg/actuation 2 puff inhalation Q4H PRN 07/16/23 07/16/23 Unknown History aerosol inhaler Shortness Of Breath Or Wheezing alfuzosin 10 mg tablet,extended 10 mg PO DAILY 07/16/23 07/16/23 Unknown History release 24 hr lisinopril 5 mg tablet 5 mg PO DAILY 07/16/23 07/16/23 Unknown History Exam Height,Weight and Vital Signs: Height 5 ft 5 in Weight 110.733 kg Airway Mallampati Class: III TM Dist: <=3cm Neck ROM: Full Loose/Missing/Broken Teeth: Yes Heart: rrr Lungs: cta Assessment and Plan Final Anesthetic Review Family History of Problems with Anesthesia: No History of Problems with Anesthesia: No NPO: Yes ASA Class: III Final Preanesthetic Review: No Changes in Pt Med Stat, Meds/Allgs Chart Reviewed, Consent Obtained/Reviewed and Anes Risks/Benef Reviewed Patient Risk: Intermediate Procedure Risk: Intermediate Anesthetic Plan Anesthetic Plan: MAC: Disposition: Standard PACU
[2023-07-21 07:59] VITALS: BP 147/76; PULSE 78; RESP 18; TEMP 36.6; O2SAT 96
[2023-07-21] MEDS: Lactated Ringers 1,000 ML 100 ML IVCONT (08:15)
[2023-07-21 08:52] VITALS: BP 128/70; PULSE 89; RESP 19; TEMP 36.6; O2SAT 97
--- NOTE | 2023-07-21 08:56 | PM.OP ---
Brief Operative Note Date of Service: 07/21/23 Pre-op diagnosis: Hernandez's Post-op diagnosis: other (Same, small hiatal hernia) Procedure: EGD with biopsies Surgeon: Ayden Hernandez MD Anesthesia: MAC Was an Geological Sample Tester used for this Procedure?: No Estimated blood loss (mL): 2.0 Pathology: other (A. EG Junction at 39cm) Condition: stable Disposition: PACU
[2023-07-21 09:07] VITALS: PULSE 77; RESP 20; O2SAT 94
[2023-07-21 09:22] VITALS: BP 117/67; PULSE 72; RESP 16; TEMP 36.6; O2SAT 96
--- NOTE | 2023-07-21 09:22 | OP_ITS ---
DATE OF SERVICE: 07/21/2023 SURGEON: Ayden Hernandez MD INDICATIONS: The patient presents for evaluation of gastroesophageal reflux and history of Hernandez's esophagus. Full consent was obtained from him for this, including risks of bleeding and perforation. PREOPERATIVE DIAGNOSIS: POSTOPERATIVE DIAGNOSIS: PROCEDURE PERFORMED: Esophagogastroduodenoscopy with biopsies. ESTIMATED BLOOD LOSS: COMPLICATIONS: ANESTHESIA: Monitored anesthesia care. ASSISTANTS: SPECIMENS: PREOPERATIVE DIAGNOSES: Gastroesophageal reflux and Hernandez esophagus. POSTOPERATIVE DIAGNOSES: Gastroesophageal reflux and Hernandez esophagus. DESCRIPTION OF PROCEDURE: The patient was placed in the left lateral decubitus position. The Olympus video gastroscope was passed in the posterior oropharynx and upper esophagus under direct vision. The scope was passed slowly into the distal esophagus. The gastroesophageal junction appeared at 39 cm. There was some minimal irregularity, but no evidence of esophagitis nor any definitive evidence of Hernandez mucosa. The scope entered the stomach. There was no sign of any stricture. There was a minimal hiatal hernia. The scope was advanced to pylorus and the duodenum was cannulated at the descending portion. The duodenum including the bulb appeared normal without mass or ulceration. The scope was withdrawn back to the stomach. The gastric antrum and body appeared normal with good peristalsis. The scope was retroflexed, visualizing the proximal stomach carefully, which appeared normal, without any sign of mass or ulceration. The scope was straightened and withdrawn back to the esophagus. Biopsies were obtained at the EG junction at 39 cm. Proximal to this, the esophageal mucosa appeared normal. The esophagus itself was somewhat tortuous and dilated, consistent with his underlying achalasia. There was no significant retained fluid nor any food. The scope was withdrawn from the patient. He tolerated the procedure well and was returned to recovery area in stable condition. IMPRESSION: 1. Minimal hiatal hernia. 2. Minimal changes of reflux and/or Hernandez esophagus, status post biopsy. PLAN: Results of biopsy will be checked. Given this minimal finding, I do not think he will need any further upper endoscopies as long as there is no dysplasia seen on the biopsies from today, if there is any Hernandez's esophagus seen at all. He will continue his PPI. He was advised to resume his aspirin tomorrow morning. He will otherwise see me on a p.r.n. basis and is due for another colonoscopy in 2024. He has been stable in regard to the achalasia without any swallowing issues. This has been discussed with his . MD HAIM Arenas/TULIO / [phone]
== END 2023-07-21 09:50 | disposition home or self-care (01) ==
PROVIDERS: PCP Internal Medicine; Visit Provider Internal Medicine
PROC: 0DJ08ZZ Inspection of Upper Intestinal Tract, Via Natural or Artificial Opening Endoscopic (ICD-10-PCS; CPT 43235; principal; 2023-07-21 08:40)
DX: K21.9 Gastro-esophageal reflux disease without esophagitis (principal); K22.70 Barrett's esophagus without dysplasia; K44.9 Diaphragmatic hernia without obstruction or gangrene; I25.10 Atherosclerotic heart disease of native coronary artery without angina pectoris; J44.9 Chronic obstructive pulmonary disease, unspecified; Z79.82 Long term (current) use of aspirin; Z79.899 Other long term (current) drug therapy
CPT/HCPCS: 43239; 88305; 88313; J2704

== ENCOUNTER 2023-08-10 12:53 | Outpatient (REF) | payer MEDICARE, SELFPAY ==
--- NOTE | ~2023-08-10 | XR_ITS ---
EXAMINATION: XR CHEST CLINICAL INFORMATION: Cough COMPARISON: Chest 08/29/2015 TECHNIQUE: 2 views of the chest were obtained. FINDINGS: The patient is status post median sternotomy. Calcification of the thoracic aorta is indicative of atherosclerotic disease. There is central peribronchial thickening, previously seen. There is no focal consolidation, interstitial pulmonary edema or pneumothorax. No pleural effusion heart size is normal. No acute bony abnormality. There is mild dextrocurvature of the degenerated thoracic spine. XR/XR chest 2V IMPRESSION: No pneumonia.
[2023-08-10 13:50] LABS: Influenza A PCR NEGATIVE (Negative); Influenza B PCR NEGATIVE (Negative); Resp Syncy Virus RNA Qual PCR NEGATIVE (Negative); SARS COV2 PCR INHOUSE NEGATIVE (Negative)
== END 2023-08-10 12:54 | disposition home or self-care (01) ==
LOC: HO.XRAY 12:53
PROVIDERS: PCP Internal Medicine; Visit Provider Internal Medicine
DX: Z11.52 Encounter for screening for COVID-19 (principal); R06.02 Shortness of breath; R05.9 Cough, unspecified
CPT/HCPCS: 0241U; 71046

== ENCOUNTER 2023-09-02 11:09 | Outpatient (REF) | payer MEDICARE, SELFPAY ==
[2023-09-02 11:34] LABS: Estimated Average Glucose 111 mg/dL; Hemoglobin A1c % 5.5 % (<6.0)
[2023-09-02 11:56] LABS: Alanine Aminotransferase 19 U/L (0-40); Albumin Level 3.5 g/dL (3.5-5.0); Alkaline Phosphatase 48 U/L (39-117); Aspartate Amino Transferase 22 U/L (5-37); Bilirubin Direct 0.2 mg/dL (0.0-0.5); Bilirubin Total 0.4 mg/dL (0.0-1.0); Cholesterol 131 mg/dL (<200); Glucose Fasting 109 mg/dL (60-99); HDL Cholesterol 52 mg/dL (>40); LDL Cholesterol Calculated 60 mg/dL (<100); Total Protein 6.6 g/dL (6.5-8.0); Triglycerides 97 mg/dL (<150)
[2023-09-02 12:04] LABS: Reflex LDLD? No
== END 2023-09-02 11:10 | disposition home or self-care (01) ==
LOC: HO.LNP 11:09
PROVIDERS: Visit Provider Internal Medicine
DX: E11.9 Type 2 diabetes mellitus without complications (principal); E78.00 Pure hypercholesterolemia, unspecified
CPT/HCPCS: 80061; 80076; 82947; 83036

== ENCOUNTER 2023-10-21 15:05 | Outpatient (AMB) | payer MEDICARE, SELFPAY ==
[2023-10-21 15:16] VITALS: BP 110/70; PULSE 83; BMI 39.3
--- NOTE | 2023-10-21 15:16 | A.OFFVIS_ITS ---
Vital Signs 10/21/23 15:16 Height 5 ft 5 in Weight 235 lb 14.314 oz BMI 39.3 BP 110/70 Blood Pressure Location Lt brachial Position Sitting Pulse 83 Intake Visit Reasons: 1 year follow up Intake Note: 1 year follow-up with ekg suzanne good Limnologist Required: No Allergies cephalexin [From KEFLEX] Allergy (Intermediate, Verified 10/13/21 16:04) RASH codeine [CODEINE] Allergy (Intermediate, Verified 10/13/21 16:04) RASH sulfamethoxazole [From SEPTRA] Allergy (Intermediate, Verified 10/13/21 16:04) RASH trimethoprim [From SEPTRA] Allergy (Intermediate, Verified 10/13/21 16:04) RASH Medication List - Last Reconciled 10/21/23 by Sanjay Martinez MD albuterol sulfate 90 mcg/actuation 2 puffs inhalation Q4H PRN alfuzosin ER 10 mg PO DAILY aspirin (Adult Aspirin Regimen) 81 mg PO DAILY atorvastatin 80 mg PO DAILY bupropion HCl XL 300 mg PO DAILY ezetimibe 10 mg PO DAILY fluoxetine 40 mg PO DAILY ipratropium-albuterol 0.5 mg-3 mg(2.5 mg base)/3 mL mL inhalation QID lisinopril 5 mg PO DAILY metoprolol succinate ER 50 mg PO DAILY nitroglycerin (Nitrostat) 0.4 mg sublingual Q5M PRN omeprazole 20 mg PO QAM [Tylenol ] HPI Comments Details: Antoni comes for follow-up. Overall he has been doing well. He tries to walk every day with his dog. Denies any significant worsening anginal sounding chest discomfort. Does get exertional shortness of breath especially heart humid weather and during the springtime with the allergies. He does have COPD. Last LDL was 60 mg/dL. Taking all his medications. No orthopnea, PND, leg edema no prolonged palpitation irregular heartbeat. No lightheadedness, syncope. [facility] Medical History CAD (coronary artery disease) Depression GERD (gastroesophageal reflux disease) HTN (hypertension) Heart attack Hyperlipidemia UTI (urinary tract infection) Enlarged prostate Surgical History S/P CABG x 3 Stented coronary artery H/O heart artery stent Social History Patient Tobacco Use Status: Never used Tobacco Review of Systems Const Denies chills, Denies fatigue, Denies fever(s), Denies frequent falls, Denies weakness, Denies weight gain and Denies weight loss ENT Denies dizziness Card Denies chest pain, Denies leg edema, Denies lightheadedness, Denies palpitations, Denies dyspnea, Denies dyspnea on exertion, Denies orthopnea and Denies other (loss of consciousness) Resp Denies cough, Denies dyspnea and Denies dyspnea on exertion GI Denies hematochezia and Denies change in stool character Musc Denies abnormal gait, Denies muscle weakness, Denies numbness, Denies radiating pain into limb and Denies tingling Neuro Denies Abnormal speech present, Denies abnormal gait, Denies dizziness, Denies frequent falls, Denies numbness, Denies tingling and Denies weakness Endo Denies fatigue and Denies palpitations Physical Exam Vital Signs: Last Vital Signs Pulse 83 10/21/23 15:16 BP 110/70 10/21/23 15:16 BMI result Body Mass Index 39.3 Const General: cooperative, comfortable, no acute distress, alert and awake Nutritional Appearance: obese Orientation/consciousness: patient oriented x3 Limitations: no limitations HEENT Head: Yes normocephalic and Yes atraumatic Neck Neck: Yes trachea midline, Yes supple and Yes no JVD Chest Chest palpation & inspection: normal inspection of the chest and other (Well- healed sternotomy scar) Resp Effort & Inspection: normal respiratory effort Auscultation: clear to auscultation bilaterally Cardio Jugular venous distension: no JVD Palpation: normal PMI Rate: regular rate Rhythm: regular rhythm Heart sounds: S1 normal heart sound present, S2 normal heart sound present, no click, no gallops, no murmurs and no rubs GI Auscultation: normal bowel sounds Skin General skin exam: no rashes or lesions noted Neuro General: patient oriented x3 and no focal motor deficits Speech: No Abnormal speech present Extrem General: Yes no clubbing, cyanosis or edema Office Procedures EKG Details: EKG shows normal sinus rhythm with occasional PVCs at 83 beats per minute otherwise normal EKG [id number], Complete Assessment & Plan Assessment & Plan (1) CAD (coronary artery disease): Code(s): I25.10 - Atherosclerotic heart disease of [place] coronary artery without angina pectoris Category: Medical Plan: CAD with remote RCA stenting and 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 Currently doing well without any symptoms. Encouraged to continue current medical therapy and compliance with medication was discussed. Importance of medical therapy to reduce future cardiovascular events was discussed. Continue lifelong aspirin therapy. Continue aggressive blood pressure control, see below. Continue combined therapy of atorvastatin ezetimibe with well optimized LDL at this point in time. However most importantly I discussed with him to increase his activity level and target in weight loss program. He understands and agrees. Advised to call me with any worsening anginal symptoms. (2) HTN (hypertension): Code(s): I10 - Essential (primary) hypertension Category: Medical Plan: Hypertension which is currently well optimized advised to monitor blood pressure at home maintain a log. Goal blood pressure less than 130/84. Low-salt diet was discussed. Encouraged to participate in aggressive weight loss program and regular physical activity. Follow up in the clinic in 1 year's time, sooner p.r.n.. Thank you for allowing me to partake in his care Coding Level of Care Code Est Pt Level 4 (86853) Diagnoses CAD (coronary artery disease) I25.10 HTN (hypertension) I10 CPT Codes EKG - CPT: 98906-Kanrabiaopnaaipah, Complete ([id number])
== END 2023-10-21 15:35 | disposition home or self-care (01) ==
PROVIDERS: PCP Internal Medicine; Visit Provider Internal Medicine Cardiovascular Disease
DX: I25.10 Atherosclerotic heart disease of native coronary artery without angina pectoris (principal); I10 Essential (primary) hypertension
CPT/HCPCS: 93010; 99214

== ENCOUNTER → 2023-10-21 15:05 | Outpatient (BNVA) | payer MEDICARE, SELFPAY | PROVIDERS: PCP Internal Medicine; Visit Provider Internal Medicine Cardiovascular Disease | DX: I25.10 Atherosclerotic heart disease of native coronary artery without angina pectoris (principal); I10 Essential (primary) hypertension | CPT/HCPCS: 93005; 99212 ==

== ENCOUNTER 2024-03-09 11:01 | Outpatient (REF) | payer MEDICARE, SELFPAY ==
[2024-03-09 11:06] LABS: MANUAL DIFF FLAG NO
[2024-03-09 12:09] LABS: Appearance Urine Clear; Basophils Absolute Auto 0.1 X10*3/uL (0.0-0.2); Basophils Percent Auto 1.1 % (0-2); Color Urine Yellow; Eosinophils Absolute Auto 0.3 X10*3/uL (0.0-0.4); Eosinophils Percent Auto 4.8 % (0-4); Glucose Urine UA Negative (Negative); Hematocrit 44.1 % (42.0-52.0); Hemoglobin 14.1 g/dl (14.0-18.0); Imm Gran Abs Auto 0.02 X10*3/uL (0.00-0.03); Imm Gran Pct Auto 0.4 % (0.0-0.4); Leukocyte Esterase Urine Negative (Negative); Lymphocytes Absolute Auto 1.7 X10*3/uL (1.2-4.9); Lymphocytes Percent Auto 31.4 % (20-40); Mean Corpuscular Hemoglobin 28.9 pg (27.0-33.0); Mean Corpuscular Volume 90.4 fL (80.0-98.0); Mean Platelet Volume 9.9 fL (9.4-12.4); Monocytes Absolute Auto 0.4 X10*3/uL (0.1-1.2); Monocytes Percent Auto 7.5 % (2-11); Neutrophils Percent Auto 54.8 % (45-73); Nitrite Urine Negative (Negative); Platelet Count 157 X10*3/uL (160-400); Red Blood Count 4.88 X10*6/uL (4.60-5.80); Red Cell Distribution Width 13.9 % (11.0-16.0); Specific Gravity - Urine 1.015 (1.005-1.025); Urine Blood Negative (Negative); Urine Ketones Negative (Negative); Urine Protein Negative (Neg-Trace); White Blood Count 5.4 X10*3/uL (4.8-10.8)
[2024-03-09 12:13] LABS: Bacteria Urine None Seen (None Seen); Hyaline Casts Urine 0-2 /LPF (0-2); RBC Urine 0-2 /HPF (0-2); Squamous Epithelial Cell Urine 0-2 /HPF (0-2); WBC Urine 0-5 /HPF (0-5)
[2024-03-09 12:22] LABS: Estimated Average Glucose 114 mg/dL; Hemoglobin A1c % 5.6 % (<6.0); Total Hemoglobin (HGBA1C) 3690.8844 umol/L
[2024-03-09 12:30] LABS: Creatinine Urine 116.28 mg/dL
[2024-03-09 12:38] LABS: Alanine Aminotransferase 17 U/L (0-40); Albumin Level 3.5 g/dL (3.5-5.0); Alkaline Phosphatase 62 U/L (39-117); Anion Gap 11 (12-20); Aspartate Amino Transferase 33 U/L (5-37); Bilirubin Total 0.7 mg/dL (0.0-1.0); Blood Urea Nitrogen 12 mg/dL (9-16); Calcium 8.9 mg/dL (8.4-10.2); Carbon Dioxide 28 mmol/L (22-29); Chloride 107 mmol/L (96-108); Cholesterol 114 mg/dL (<200); Estimated Glomerular Filt Rate > 60; Glucose Fasting 124 mg/dL (60-99); HDL Cholesterol 42 mg/dL (>40); LDL Cholesterol Calculated 55 mg/dL (<100); Potassium 4.4 mmol/L (3.3-5.1); Sodium 142 mmol/L (135-145); Total Protein 6.8 g/dL (6.5-8.0); Triglycerides 85 mg/dL (<150)
[2024-03-09 12:49] LABS: PSA,Total (Free>4and<10) 1.63 ng/mL (0.00-4.00)
== END 2024-03-09 11:02 | disposition home or self-care (01) ==
LOC: HO.LNP 11:01
PROVIDERS: Visit Provider Internal Medicine
DX: Z00.00 Encounter for general adult medical examination without abnormal findings (principal); Z12.5 Encounter for screening for malignant neoplasm of prostate; E11.9 Type 2 diabetes mellitus without complications; E78.00 Pure hypercholesterolemia, unspecified; D69.6 Thrombocytopenia, unspecified
CPT/HCPCS: 80053; 80061; 81001; 82043; 82570; 83036; 84153; 85025

== ENCOUNTER 2024-09-07 09:54 | Outpatient (REF) | payer MEDICARE, SELFPAY ==
[2024-09-07 10:23] LABS: Estimated Average Glucose 111 mg/dL; Hemoglobin A1c % 5.5 % (<6.0)
[2024-09-07 10:28] LABS: Alanine Aminotransferase 17 U/L (0-40); Albumin Level 3.6 g/dL (3.5-5.0); Alkaline Phosphatase 61 U/L (39-117); Aspartate Amino Transferase 28 U/L (5-37); Bilirubin Direct 0.2 mg/dL (0.0-0.5); Bilirubin Total 0.4 mg/dL (0.0-1.0); Cholesterol 118 mg/dL (<200); Glucose Fasting 98 mg/dL (60-99); HDL Cholesterol 43 mg/dL (>40); LDL Cholesterol Calculated 55 mg/dL (<100); Total Protein 6.6 g/dL (6.5-8.0); Triglycerides 102 mg/dL (<150)
--- OUTSIDE RECORDS SUMMARY | 2024-09-07 11:16 | XMS_ITS ---
Author Organization [facility] Address [address] [place] [id number] Care Team Providers Care Corrective And Manual Arts Therapist Name Role Phone Gordy Rodriguez MD Primary Care Provider Ayden Bhat [phone] Allergies Allergen (clinical drug ingredient) Drug/Non Drug Allergy documented on EMR Reaction Allergy Type Onset Date Status Septra Unknown Drug Allergy Active Keflex Unknown Drug Allergy Active codeine Codeine Sulfate Unknown Drug Allergy A ctive REASON FOR VISIT Patient presents today for an upper endo,hx of reflux, barretts, achalasia Medications Medication SIG (Take, Route, Frequency, Duration) Notes Start Date End Date Status ProAir HFA 108 (90 Base) MCG/ACT 2 puffs as needed Inhalation every 6 hrs/prn Active Alfuzosin HCl ER 10 MG 1 tablet immediat xiomy after the same meal Orally Once a day Active Omeprazole 20 MG 1 Orally Every morni ng for 90 days 11/01/2022 Active Omeprazole 20 MG TAKE 1 CAPSULE BY [facility] ONCE DAILY 30 MINUTES BEFORE MORNING MEAL for 90 Active FLUoxetine HCl 40 MG 1 capsule Orally On ce a day for 30 day(s) Active Lisinopril 5 MG 1 tablet Orally Once a day Active Ezetimibe 10 MG 1 tablet Orally Once a day for 30 day(s) Active Atorvastatin Calcium 80 MG 1 tablet Oral ly Once a day Active buPROPion HCl 300MG 1 tablet Orally once a day Active tylenol Active Metoprolol Succinate ER 50 MG 1 tablet Orally Once a day Active Nitroglycerin 0.4 MG as directed Subling ual prn Active Aspirin 81 MG 1 tablet Orally Once a day Active Social History Tobacco Use: Social History Observation Description Date Details (start date - stop date) Former Smoker NA - NA Tobacco Use/Smoking Question Answer Notes Patient is a former smoker How long has it been since you last smoked? > 10 years Section Notes: Nonsmoker since 2010; no sig . alcohol Vital Signs Temperature 97.7 degrees Fahrenheit 04/15/19 24 Blood pressure systolic 00 mm Hg 04/15/19 24 Blood pressure diastolic 00 mm Hg 024 Height 65 in 04/15/2023 Weight 233 lbs 04/15/2023 BMI 38.77 kg/m2 04/15/2023 Encounters Encounter Location Date Provider Diagnosis [facility] [address] [place] [address] 04/15/2023 Ayden Hernandez Gastroesophageal ref lux disease without esophagitis K21.9 ; Barretts esophagus without dysplasia K22.70 and Achalasia K22.0 Assessments Encounter Date Diagnosis (ICD Code) Assessment Notes Treatment Notes Treatment Clinical Notes Section Notes 04/15/2023 Gastroesophageal reflux disease without esophagitis (ICD-10 - K21.9) Do not take aspirin on the morning of the upper endoscopy Overall, Vikas appears well from a GI standpoint. His reflux is very stable on his omeprazole and his previous symptoms of the achalasia have remained quiescent since the POEM procedure nearly 4 years ago. I did recommend a followup upper endoscopy given his previous history of Hernandez's esophagus, chronic reflux, and underlying history of achalasia. Full consent has been obtained for this, including risks of bleeding and perforation. The procedure will be done with monitored anesthesia care. He was advised not to use any aspirin on the morning of the procedure. We did review his negative colonoscopy in 2019 and I advised him of the need for a followup colonoscopy toward the latter part of 2024 given his previous history of tubular adenomas. Vikas was comfortable with this plan. Thank you again for allowing me to participate in Vikas's care. I shall continue to keep you advised of his progress. 04/15/2023 Barretts esophagus without dysplasia (ICD-10 - K22.70) Overall, Vikas appears well from a GI standpoint. His reflux is very stable on his omeprazole and his previous symptoms of the achalasia have remained quiescent since the POEM procedure nearly 4 years ago. I did recommend a followup upper endoscopy given his previous history of Hernandez's esophagus, chronic reflux, and underlying history of achalasia. Full consent has been obtained for this, including risks of bleeding and perforation. The procedure will be done with monitored anesthesia care. He was advised not to use any aspirin on the morning of the procedure. We did review his negative colonoscopy in 2019 and I advised him of the need for a followup colonoscopy toward the latter part of 2024 given his previous history of tubular adenomas. Vikas was comfortable with this plan. Thank you again for allowing me to participate in Vikas's care. I shall continue to keep you advised of his progress. 04/15/2023 Achalasia (ICD-10 - K22.0) Overall, Vikas appears well from a GI standpoint. His reflux is very stable on his omeprazole and his previous symptoms of the achalasia have remained quiescent since the POEM procedure nearly 4 years ago. I did recommend a followup upper endoscopy given his previous history of Hernandez's esophagus, chronic reflux, and underlying history of achalasia. Full consent has been obtained for this, including risks of bleeding and perforation. The procedure will be done with monitored anesthesia care. He was advised not to use any aspirin on the morning of the procedure. We did review his negative colonoscopy in 2019 and I advised him of the need for a followup colonoscopy toward the latter part 2024 given his previous history of tubular adenomas. Vikas was comfortable with this plan. Thank you again for allowing me to participate in Vikas's care. I shall continue to keep you advised of his progress. 04/15/2023 Other Repeat colonoscopy in 12/2024 Overall, Vikas appears well from a GI standpoint. His reflux is very stable on his omeprazole and his previous symptoms of the achalasia have remained quiescent since the POEM procedure nearly 4 years ago. I did recommend a followup upper endoscopy given his previous history of Hernandez's esophagus, chronic reflux, and underlying history of achalasia. Full consent has been obtained for this, including risks of bleeding and perforation. The procedure will be done with monitored anesthesia care. He was advised not to use any aspirin on the morning of the procedure. We did review his negative colonoscopy in 2019 and I advised him of the need for a followup colonoscopy toward the latter part 2024 given his previous history of tubular adenomas. Vikas was comfortable with this plan. Thank you again for allowing me to participate in Vikas's care. I shall continue to keep you advised of his progress. Plan Of Treatment Treatment Notes Assessment Notes Gastroesophageal reflux dise ase without esophagitis Do not take aspirin on the morning of the upper endoscopy Other Repeat colonoscopy i n 12/2024 Future Test Test Name Order Date UPPER GI ENDOSCOPY 04/15/2023 Next Appt Details Follow Up: prn, Reason: Progress Notes * GABBY MENESES JDOB:[birth year] (67 yo M)Acc No.[id number]:04/15/2023 Progress Notes Patient:?GABBY MENESES Provider:?Ayden Hernandez MD :1955???Age:67 Y???Sex:Male Arnulfo e:04/15/2023 Address:[address] [place] [address] Pcp:Gordy Rodriguez MD Subjective: * Chief Complaints: * ???Patient presents today fo r an upper endo,hx of reflux, barretts, achalasia * HPI: ???incontinence:? I saw Vikas in consultation today in regard to his underlying history of gastroesophageal reflux, achalasia, and previous finding of Hernandez's esophagus. ?I last saw Vikas in December of 2019, at which time he underwent a negative followup screening colonoscopy. Since that time he has been feeling well from a GI standpoint. His previous issues with dysphagia from his achalasia have remained quite stable and improved ever since his POEM procedure in 2019. He enjoys a good appetite and is not having any difficulty with eating. He remains on omeprazole with good relief of his heartburn symptoms. He denies any early satiety, nausea, nor vomiting. His bowel movements have remained regular and without any signs of bleeding. He denies abdominal pain, jaundice, nor unintentional weight loss. * ROS:?General/Constitutional:?Change in appetite?denies.?Chills?denies.?Fatigue?denies.?Ophthalmologic:?Patient denies? Negative..?ENT:?Patient denies?Negative..?Respiratory:?Patient denies?No coughing/hemoptysis..?Cardiovascular:?Patient denies? No chest pain/orthopnea..?Gastrointestinal:?Comments?See HPI for details.?Genitourinary:?Patient denies? No dysuria/hematuria..?Musculoskeletal:?Patient denies? No specific arthralgias/myalgias..?Skin:?Patient denies?No rash/pruritus..?Neurologic:?Patient denies? No headaches/seizures..?Psychiatric:?Patient denies?Negative..? * Medical History:? 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 Martinez 2021 * Hospitalization/Major Diagno stic Procedure:?No Hospitalization History. * Family History:?Father: dece ased, diagnosed with Heart disease.?Mother: alive, diagnosed with Heart disease.? No known hx of colon cancer or polyps. * Social History:?Tobacco Use:?Tobacco Use/Smoking?Patient is a?former smoker,?How long has it been since you last smoked??> 10 years.?Drugs/Alcohol:?Alcohol Screen?Points: 0, Interpretation: Negative.?Miscellaneous:?Marital status: . Occupation: retired. ???Nonsmoker since 2010; no sig. alcohol. * Medications:?Takingtylenol M etoprolol Succinate ER 50 MG Tablet Extended Release 24 Hour 1 tablet Orally Once a dayNitroglycerin 0.4 MG Tablet Sublingual as directed Sublingual prnAspirin 81 MG Tablet Chewable 1 tablet Orally Once a dayAtorvastatin Calcium 80 MG Tablet 1 tablet Orally Once a daybuPROPion HCl 300MG 1 tablet Orally once a dayLisinopril 5 MG Tablet 1 tablet Orally Once a dayEzetimibe 10 MG Tablet 1 tablet Orally Once a dayFLUoxetine HCl 40 MG Capsule 1 capsule Orally Once a dayAlfuzosin HCl ER 10 MG Tablet Extended Release 24 Hour 1 tablet immediately after the same meal Orally Once a dayProAir HFA 108 (90 Base) MCG/ACT Aerosol Solution 2 puffs as needed Inhalation every 6 hrs/prnOmeprazole 20 MG Capsule Delayed Release TAKE 1 CAPSULE BY MOUTH ONCE DAILY 30 MINUTES BEFORE MORNING MEAL Omeprazole 20 MG Capsule Delayed Release 1 Orally Every morningTaking tylenol Taking Metoprolol Succinate ER 50 MG Tablet Extended Release 24 Hour 1 tablet Orally Once a dayTaking Nitroglycerin 0.4 MG Tablet Sublingual as directed Sublingual prnTaking Aspirin 81 MG Tablet Chewable 1 tablet Orally Once a dayTaking Atorvastatin Calcium 80 MG Tablet 1 tablet Orally Once a dayTaking buPROPion HCl 300MG 1 tablet Orally once a dayTaking Lisinopril 5 MG Tablet 1 tablet Orally Once a dayTaking Ezetimibe 10 MG Tablet 1 tablet Orally Once a dayTaking FLUoxetine HCl 40 MG Capsule 1 capsule Orally Once a dayTaking Alfuzosin HCl ER 10 MG Tablet Extended Release 24 Hour 1 tablet immediately after the same meal Orally Once a dayTaking ProAir HFA 108 (90 Base) MCG/ACT Aerosol Solution 2 puffs as needed Inhalation every 6 hrs/prnTaking Omeprazole 20 MG Capsule Delayed Release TAKE 1 CAPSULE BY MOUTH ONCE DAILY 30 MINUTES BEFORE MORNING MEAL Taking Omeprazole 20 MG Capsule Delayed Release 1 Orally Every morningDiscontinuedtraMADol HCl 50 MG Tablet 1 tablet as needed Orally Once a dayMedication List reviewed and reconciled with the patientDiscontinued traMADol HCl 50 MG Tablet 1 tablet as needed Orally Once a dayMedication List reviewed and reconciled with the patient * Allergies:?Codeine SulfateKe flexSeptrayes[Allergies Verified] Objective: * Vitals:?Wt: 233 lbs, Ht: 65 in, BMI:38.77 Index, BP: 00/00 mm Hg, Temp: 97.7. * Examination: ???General Examination: ?GENERAL APPEARANCE:?pleasant, well nourished, well developed, in no acute distress.?EYES:?sclera non-icteric.?ORAL CAVITY:?mucosa moist.?NECK/THYROID:?no cervical lymphadenopathy, neck supple.?SKIN:?nonjaundiced, no spider angiomata..?HEART:?S1, S2 normal.?LUNGS:?clear to auscultation bilaterally.?ABDOMEN:?normal bowel sounds, no guarding or rigidity, no hepatosplenomegaly, no masses palpable, soft, nontender, nondistended..?EXTREMITIES:?no edema.?NEUROLOGIC:?alert and oriented.? Assessment: * Assessment: 1.?Barretts esophagus withou t dysplasia - K22.70 (Primary)?2.?Gastroesophageal reflux disease without esophagitis - K21.9?3.?Achalasia - K22.0? Overall, Vikas appears well fr om a GI standpoint. His reflux is very stable on his omeprazole and his previous symptoms of the achalasia have remained quiescent since the POEM procedure nearly 4 years ago. I did recommend a followup upper endoscopy given his previous history of Hernandez's esophagus, chronic reflux, and underlying history of achalasia. Full consent has been obtained for this, including risks of bleeding and perforation. The procedure will be done with monitored anesthesia care. He was advised not to use any aspirin on the morning of the procedure. We did review his negative colonoscopy in 2019 and I advised him of the need for a followup colonoscopy toward the latter part of 2024 given his previous history of tubular adenomas. Vikas was comfortable with this plan. Thank you again for allowing me to participate in Vikas's care. I shall continue to keep you advised of his progress. Plan: * Treatment: 2.?Gastroesophageal reflux disease without esophagitis?Procedure: UPPER GI ENDOSCOPY (Ordered for 04/15/2023)* with MACsched for 07/21/23 at 8:30 am Notes: Do not take aspirin on the morning of the upper endoscopy??3.?Achalasia?Procedure: UPPER GI ENDOSCOPY (Ordered for 04/15/2023)* with MACsched for 07/21/23 at 8:30 am 4.?Others? Notes: Repeat colonoscopy in 12/2024?? * Procedure Codes:?3017F COLOR ECTAL CA SCREEN DOC [id number] TOBACCO [id number] BP SCR NOT PRFRM REC REASON NOS * Preventive Medicine:? ??Counseling:?Care goal follow-up plan:?Above Normal BMI Follow-up?Giving encouragement to exercise,?BMI management provided?Yes.? * Follow Up:?prn * * Sign off status: Completed true * Provider:?Ayden Hernandez MD Date:? 024 Generated for Carmel silver/Derek/Sarah Beth on:?09/07/2024 11:16 AM EDT History and Physical Notes * HPI (History of Present Illness) Category Sub-Category Detail Notes Category Not es incontinence I saw Vikas in consultation today in regard to his underlying history of gastroesophageal reflux, achalasia, and previous finding of Hernandez's esophagus. I last saw Vikas in December of 2019, at which time he underwent a negative followup screening colonoscopy. Since that time he has been feeling well from a GI standpoint. His previous issues with dysphagia from his achalasia have remained quite stable and improved ever since his POEM procedure in 2019. He enjoys a good appetite and is not having any difficulty with eating. He remains on omeprazole with good relief of his heartburn symptoms. He denies any early satiety, nausea, nor vomiting. His bowel movements have remained regular and without any signs of bleeding. He denies abdominal pain, jaundice, nor unintentional weight loss. Examination Category Sub-Category Detail Notes Category Not es General Examination GENERAL APPEARANCE: pleasant , well nourished, well developed, in no acute distress EYES: sclera non-icteric NECK/THYROID: no cervical lymphade nopathy, neck supple HEART: S1, S2 normal LUNGS: clear to auscultatio n bilaterally ABDOMEN: normal bowel sounds, no guarding or rigidity, no hepatosplenomegaly, no masses palpable, soft, nontender, nondistended. NEUROLOGIC: alert and oriented SKIN: nonjaundiced, no spi karen angiomata. EXTREMITIES: no edema ORAL CAVITY: mucosa moist
[2024-09-07 13:00] LABS: Reflex LDLD? No
== END 2024-09-07 09:55 | disposition home or self-care (01) ==
LOC: HO.LNP 09:54
PROVIDERS: Visit Provider Internal Medicine
DX: E11.9 Type 2 diabetes mellitus without complications (principal); E78.00 Pure hypercholesterolemia, unspecified
CPT/HCPCS: 80061; 80076; 82947; 83036

== ENCOUNTER → 2024-10-17 09:49 | Outpatient (REF) | payer MEDICARE, SELFPAY ==
--- OUTSIDE RECORDS SUMMARY | 2023-07-21 04:30 | XMS_ITS ---
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) Active confirmed Problem Esophageal reflux finding (178504509) Gastroesophageal reflux (K21.9) Active confirmed Encounters Encounter Location Date Provider Diagnosis [facility] [place] [address] [place] [phone] 07/21/2023 Ayden Hernandez Hurley''s esophagus without dysplasia K22.70 ; Other specified disease of esophagus K22.89 ; Hiatal hernia K44.9 and Gastroesophageal reflux K21.9 Assessments Encounter Date Diagnosis (ICD Code) Assessment Notes Treatment Notes Treatment Clinical Notes Section Notes 07/21/2023 Hurley''s esophagus without dysplasia (ICD-10 - K22.70) 07/21/2023 Other specified disease of esophagus (ICD-10 - K22.89) 07/21/2023 Hiatal hernia (ICD-10 - K44.9) 07/21/2023 Gastroesophageal reflux (ICD-10 - K21.9) Plan Of Treatment No Information Progress Notes * GABBY MENESESDOB:[birth year] (69 yo M)Acc No.[id number]:07/21/2023 EGD/MAC Patient: GABBY CHATTERJEE Provider: Elle Hernandez MD :1955 A ge:68 Y S ex:Male Date:07/21/2023 Address:[address] [place], [place] [phone] Pcp:Gordy Rodriguez MD Subjective: * Chief Complaints: * 1 . Achalasia,hurley's ,gerd. * Medical History: Objective: * Vitals: Assessment: * Assessment: 1. B arrett''s esophagus without dysplasia - K22.70 (Primary) 2 . O ther specified disease of esophagus - K22.89 3 . H iatal hernia - K44.9 ?4. G astroesophageal reflux - K21.9 Plan: * Treatment: * Procedure Codes: 4 3239 UPPER GI ENDOSCOPY, BIOPSY * * The named appointment provid er may or may not be the originator of this progress note, and it is not deemed complete until electronically signed by the appointment provider. Sign off status: Pending * Provider: Elle Hernandez MD Date: 0 07/21/2023 Generated for Carmel silver/Derek/eTransmitting on: 0 10/17/2024 10:32 AM EDT
--- OUTSIDE RECORDS SUMMARY | 2024-06-19 06:23 | XMS_ITS ---
Author Organization Gordy Rodriguez MD Address 10 [facility] [address] [place] [address] [phone] Support Name Relationship Address Phone Ayden Hernandez Caregiver 10 [facility] [address] [address] [place] [address] [phone] Gordy Rodriguez [facility]giver [facility] [address] [place] [address] [phone] AnaElle diaz Caregiver 10 [facility] [address] [place] [address] [phone] JannAyden Caregiver 10 [facility] [address] [place] [address] [phone] Rocky Joce Caregiver 10 [facility] [address] [place] [address] [phone] Daniel Lyle Caregiver 10 [facility] francis [address] [place] [address] [phone] Gordy Rodriguez Caregiver 10 [facility] [address] [place] [address] [phone] BárbaraGina Caregiver 10 [facility] [address] [place] [address] [phone] Unavailable Emergency Contact Unknown [phone] Antoni Powers Guarantor Unknown Care Team Providers Care Solar Manufacturer'S Representative Name Role Phone Gordy Rodriguez Primary Care Provider [phone] REASON FOR VISIT HCC Risk Codes 09/14 Encounters Encounter Location Date Provider Diagnosis Gordy Rodriguez MD 10 [facility] [address] [place] [phone] 06/19/2024 Gordy Rodriguez Plan Of Treatment Next Appt Details Provider Name:Gordy Murrell ier, 11/20/2024 10:15:00 AM, 10 [facility], [address], [place], [place], [phone], Provider Name:Gordy Murrell ier, 03/15/2025 07:15:00 AM, [address] [facility] [address], [address], [place], [phone], Provider Name:Gordy Murrell ier, 03/22/2025 09:30:00 AM, 10 [facility], [address], [place], [phone], Progress Notes * Antoni POWERSDOB:[birth year] (69 yo M)Acc No.[id number]:06/19/2024 Patient: Gautam Antoni SAAVEDRA :1955 A ge:69 Y S ex:Male Address:[address] [place] [phone] * true * Date: Generated for Carmel silver/Derek/Earnestsmitting on: 0 10/17/2024 10:32 AM EDT
--- NOTE | 2024-10-17 09:57 | CA_ITS ---
Transthoracic Echocardiogram Patient (Last, First, Middle): Antoni Powers J Gender: Male Date of : 1955 Age: 69 Procedure Date: 10/17/2024 Procedure Type: Transthoracic Echocardiogram Location: OP Height: 165.1 cm Weight: 106.6 kg BSA: 2.12 m2 Heart Rate: bpm BP: 110 / 70 mmHg Neurology Tech: ESTEBAN Referring MD: Sanjay Martinez MD Symptoms: I25.10 - Atherosclerotic heart disease of hop[place] coronary artery without... Study Quality: Fair, contrast ECG Rhythm: Sinus Conclusions: - The left ventricular systolic function is mildly decreased. The calculated ejection fraction is 51% by biplane method. - The inferolateral wall, the basal inferior, and mid inferior segments are hypokinetic. - No obvious valvular pathology seen on this study. Findings Procedure Information Contrast agent, definity, is being given per protocol without apparent complications. Left Ventricle Normal left ventricular cavity size. There is mildly increased left ventricular wall thickness. The left ventricular systolic function is mildly decreased. The calculated ejection fraction is 51% by biplane method. There is evidence of regional wall motion abnormalities. Diastolic function is normal for age. Wall Motion Rest Echo Findings The inferolateral wall, the basal inferior, and mid inferior segments are hypokinetic. Right Ventricle Mildly increased right ventricular cavity size. There is mildly decreased right ventricular systolic function. Atria Both atria are normal in size. Aortic Valve There is a normal trileaflet aortic valve. There is mild calcification of the aortic valve. There is no aortic valve stenosis. There is no aortic valve regurgitation. Mitral Valve There is mild mitral annular calcification. There is no mitral valve regurgitation. There is no mitral valve stenosis. Pulmonic Valve There is trace pulmonic valve regurgitation. Tricuspid Valve There is mild tricuspid valve regurgitation. There is no evidence of pulmonary hypertension. Great Vessels The asc aorta is normal in size. Moderate plaque is seen in the sino tubular ridge. Venous The inferior vena cava is normal in size and collapses greater than 50% with inspiration. Pericardium/Pleural There is no evidence of pericardial effusion. Prior Study Comparison No prior study available for comparison. Recommendations, Care & Conclusions No obvious valvular pathology seen on this study. Measurements 2D Linear Measurements IVSd: 1.19 0.6-0.9/0.6-1.0 cm LVIDd: 4.56 3.9-5.3/4.2-5.9 cm LVIDd Index: 2.15 2.4-3.2/2.2-3.1 cm/m2 LVIDs: 3.04 2.0-3.6 cm LVPWd: 1.04 0.7-1.1 cm LA Diam: 3.80 2.7-3.8/3.0-4.0 cm LAIDs Index: 1.79 1.5-2.3 cm/m2 LV Mass: 226.96 67-162/88-224 g LV Mass Index: 107.06 43-95/49-115 g/m2 LVOT Diam: 2.00 3.0+(-)1.3 cm 2D Systolic Function EF 4C: 53.00 >55% EF 2C: 47.60 >55% EF BiP: 51.30 >55% Mitral Valve MV Pk E: 0.66 MV PK A: 0.99 MV Decel Time: 206.00 E/A: 0.70 E'Lateral: 10.10 E'Medial: 7.07 E/E' Med: 9.40 E/E' Lat: 6.60 PHT: 60.00 MVA PHT: 3.67 Decel Medina: 3.22 Aortic Valve AoV Pk Dannie: 1.72 AoV Mn Dannie: 1.11 AoV VTI: 0.36 AoV Pk Grad: 12.00 Aov Mn Grad: 6.00 JAIRO Cont.VTI: 1.80 LVOT LVOT Pk Dannie: 0.93 LVOT Mn Dannie: 0.57 LVOT VTI: 0.20 LVOT Pk Grad: 3.00 LVOT Mn Grad: 2.00 LVOT Diam: 2.00 LVOT Area: 3.14 Diastolic Function MV Pk E: 0.66 MV Pk A: 0.99 E/A: 0.70 E'Medial: 7.07 E/E' Med: 9.40 E' Laterial: 10.10 E/E' Lat: 6.60 Right Ventricle TAPSE (mm): 15.50 TVS' Dannie: 7.51 Tricuspid Valve TR Pk Adnnie: 2.64 TR Pk Grad: 28.00 RA Press: 3.00 RVSP: 31.00 Great Vessels Aorta Sinus of Valsalva: 3.76 2.0-3.[address] Ridge: 2.47 1.7-3.4 cm Ao Asc: 3.60 2.1-3.4 cm Updated in Other Vendor System with Status of Final Raheem Alexander MD electronically signed on 10/18/2024 4:07:02 PM with status of Final
== END ==
LOC: HO.CARD 09:49
PROVIDERS: PCP Internal Medicine; Visit Provider Internal Medicine Cardiovascular Disease
DX: I25.10 Atherosclerotic heart disease of native coronary artery without angina pectoris (principal)
CPT/HCPCS: 93306; Q9957

== ENCOUNTER → 2024-10-17 09:57 | Outpatient (BNV) | payer MEDICARE, SELFPAY | PROVIDERS: PCP Internal Medicine; Visit Provider Internal Medicine | DX: I25.10 Atherosclerotic heart disease of native coronary artery without angina pectoris (principal); I35.8 Other nonrheumatic aortic valve disorders; I36.1 Nonrheumatic tricuspid (valve) insufficiency | CPT/HCPCS: 93306 ==

== ENCOUNTER 2024-10-24 09:20 | Outpatient (AMB) | payer MEDICARE, SELFPAY ==
--- OUTSIDE RECORDS SUMMARY | 2023-07-21 04:30 | XMS_ITS ---
Author Organization [facility] Address [address] [place] [phone] Care Team Providers Care Assembly Line Upholsterer Name Role Phone Gordy Rodriguez MD Primary Care Provider Ayden Bhat [phone] REASON FOR VISIT achalasia,hurley's ,gerd Problems Problem Type SNOMED Code ICD Code Onset Dates Problem Status W/U Status Risk Notes Problem Hurley''s esoph prema without dysplasia (K22.70) Active confirmed Problem Esophageal reflux finding (414859750) Gastroesophageal reflux (K21.9) Active confirmed Encounters Encounter Location Date Provider Diagnosis [facility] [place] [address] [place] [phone] 07/21/2023 Ayden Hernandez Hurley''s esophagus without dysplasia [...] Notes * GABBY MENESESDOB:[birth year] (69 yo M)Acc No.[id number]:07/21/2023 EGD/MAC Patient: GABBY CHATTERJEE Provider: Elle Hernandez MD :1955 A ge:68 Y S ex:Male Date:07/21/2023 Address:[address] [place] [address], [place] [id number] Pcp:Gordy Rodriguez MD Subjective: * Chief Complaints: [...] MD Date: 0 07/21/2023 Generated for Carmel silver/Derek/Earnestsmitting on: 0 10/24/2024 09:51 AM EDT
--- OUTSIDE RECORDS SUMMARY | 2024-06-19 06:23 | XMS_ITS ---
Author Organization Gordy Rodriguez MD Address 10 [facility] [address] [place] [address] [phone] Support Name Relationship Address Phone Ayden Hernandez Caregiver 10 [facility] [address] [facility] [address] [place] [address] [phone] Gordy Rodriguez Caregiver [facility] [address] [place] [address] [phone] AnaElle diaz Caregiver 10 [facility] [address] [place] [address] [phone] JannAyden Caregiver 10 [facility] [address] [address] [place] [address] [phone] Rocky Joce Caregiver 10 [facility] [address] [address] [place] [address] [phone] Daniel Lyle Caregiver 10 [facility] francis [address] [place] [address] [phone] Gordy Rodriguez Caregiver 10 [facility] [address] [place] [phone] BárbaraGina Caregiver 10 [facility] [address] [address] [place] [address] [phone] Unavailable Emergency Contact Unknown Antoni Powers Guarantor Unknown Care Team Providers Care Auction Assistant Name Role Phone Gordy Rodriguez Primary Care Provider REASON FOR VISIT HCC Risk Codes 09/14 Encounters Encounter Location Date Provider Diagnosis Gordy Rodriguez MD 10 [facility] [address] [place] [phone] 06/19/2024 Gordy Rodriguez Plan Of Treatment Next Appt Details Provider Name:Gordy barbosar, 11/20/2024 10:15:00 AM, [address] [facility], [address], [place], [place], [phone], Provider Name:Gordy Murrell ier, 03/15/2025 07:15:00 AM, [address] [facility] [address], [address], [place], [phone], Provider Name:Gordy Murrell ier, 03/22/2025 09:30:00 AM, 10 [facility], [address], [place], [phone], Progress Notes * Antoni POWERSDOB:[birth year] (69 yo M)Acc No.[id number]:06/19/2024 Patient: Gautam Antoni SAAVEDRA :1955 A ge:69 Y S ex:Male Address:[address] [place] [id number] * true * Date: Generated for Carmel silver/Derek/Abrahamitting on: 0 10/24/2024 09:51 AM EDT
--- NOTE | 2024-10-24 09:34 | A.OFFVIS_ITS ---
Vital Signs 10/24/24 09:35 Height 5 ft 5 in Weight 242 lb 8.136 oz BMI 40.4 BP 120/80 Blood Pressure Location Lt brachial Position Sitting Pulse 65 Intake Visit Reasons: 1 yr follow up Intake Note: 1 year follow-up with ekg feeling goood Slitting Machine Feeder Required: No Allergies cephalexin (From KEFLEX) Allergy (Intermediate, Verified 10/13/21 16:04) RASH codeine (CODEINE) Allergy (Intermediate, Verified 10/13/21 16:04) RASH sulfamethoxazole (From SEPTRA) Allergy (Intermediate, Verified 10/13/21 16:04) RASH trimethoprim (From SEPTRA) Allergy (Intermediate, Verified 10/13/21 16:04) RASH Medication List - Last Reconciled 10/24/24 by Sanjay Martinez MD albuterol sulfate 90 mcg/actuation 2 puffs inhalation Q4H PRN alfuzosin ER 10 mg PO DAILY aspirin (Adult Aspirin Regimen) 81 mg PO DAILY atorvastatin 80 mg PO DAILY bupropion HCl XL 300 mg PO DAILY ezetimibe 10 mg PO DAILY fluoxetine 40 mg PO DAILY ipratropium-albuterol 0.5 mg-3 mg(2.5 mg base)/3 mL mL inhalation QID lisinopril 5 mg PO DAILY metoprolol succinate ER 50 mg PO DAILY nitroglycerin (Nitrostat) 0.4 mg sublingual Q5M PRN omeprazole 20 mg PO QAM [Tylenol ] HPI Comments Details: Antoni comes for follow-up. He continues to walk his dog and has no exertional anginal symptoms. Complains of shortness of breath when he climbs a flight of stairs. He has also gained some weight. He denies any orthopnea, PND, leg edema. Denies any exertional chest pain climbing flight of stairs. He does have COPD and is currently on triple inhaler therapy as per him and recently had significant symptoms from pulmonary perspective and was started on a new inhaler and says his symptoms have improved. However he continues to have exertional shortness of breath. He currently does not smoke. No prolonged palpitation irregular heartbeat. Most recent LDL is well optimized at 55 mg/dL. His echocardiogram recently shows low normal LV ejection fraction with wall motion abnormality in inferior inferolateral wall, unchanged from echocardiogram done at [facility]. [facility] Medical History CAD (coronary artery disease) Depression GERD (gastroesophageal reflux disease) HTN (hypertension) Heart attack Hyperlipidemia UTI (urinary tract infection) Enlarged prostate Surgical History S/P CABG x 3 Stented coronary artery H/O heart artery stent Social History Patient Tobacco Use Status: Never used Tobacco Review of Systems Const Denies chills, Denies fatigue, Denies fever(s), Denies frequent falls, Denies weakness, Denies weight gain and Denies weight loss ENT Denies dizziness Card Denies chest pain, Denies leg edema, Denies lightheadedness, Denies palpitations, Denies dyspnea, Denies dyspnea on exertion, Denies orthopnea and Denies other (loss of consciousness) Resp Denies cough, Denies dyspnea and Denies dyspnea on exertion GI Denies hematochezia and Denies change in stool character Musc Denies abnormal gait, Denies muscle weakness, Denies numbness, Denies radiating pain into limb and Denies tingling Neuro Denies Abnormal speech present, Denies abnormal gait, Denies dizziness, Denies frequent falls, Denies numbness, Denies tingling and Denies weakness Endo Denies fatigue and Denies palpitations Physical Exam Vital Signs: Last Vital Signs Pulse 65 10/24/24 09:35 BP 120/80 10/24/24 09:35 BMI result Body Mass Index 40.4 Const General: cooperative, comfortable, no acute distress, alert and awake Nutritional Appearance: obese Orientation/consciousness: patient oriented x3 Limitations: no limitations HEENT Head: Yes normocephalic and Yes atraumatic Neck Neck: Yes trachea midline, Yes supple and Yes no JVD Chest Chest palpation & inspection: normal inspection of the chest and other (Well- healed sternotomy scar) Resp Effort & Inspection: normal respiratory effort Auscultation: wheezes and diminished lung sounds Cardio Jugular venous distension: no JVD Palpation: normal PMI Rate: regular rate Rhythm: regular rhythm Heart sounds: S1 normal heart sound present, S2 normal heart sound present, no click, no gallops, no murmurs and no rubs GI Auscultation: normal bowel sounds Skin General skin exam: no rashes or lesions noted Neuro General: patient oriented x3 and no focal motor deficits Speech: No Abnormal speech present Extrem General: Yes no clubbing, cyanosis or edema Office Procedures EKG Details: EKG shows normal sinus rhythm nonspecific STT wave changes [id number], Complete Assessment & Plan Assessment & Plan (1) CAD (coronary artery disease): Code(s): I25.10 - Atherosclerotic heart disease of [place] coronary artery without angina pectoris Category: Medical Plan: CAD with three-vessel coronary artery bypass grafting with low normal LV ejection fraction without any signs or symptoms of angina at this point time. He has shortness of breath appears to be related to his underlying pulmonary parenchymal disease which is not completely well optimized as he continued to have wheezing today. Also has gained weight. We discussed about losing weight. Continue current medical therapy. Low normal LV EF and will continue with neurohormonal modulation with lisinopril and metoprolol. Continue aspirin lifelong. Continue high-intensity statin therapy with ezetimibe with well optimized LDL. Encouraged to call me with any new symptoms of angina. (2) HTN (hypertension): Code(s): I10 - Essential (primary) hypertension Category: Medical Plan: Hypertension which is currently well optimized advised to monitor blood pressure at home maintain a log. Goal blood pressure less than 130/84. Low-salt diet was advised. Advise lifestyle modification with increase aerobic activity as well as weight loss program. Various strategies to lose weight were discussed with him. Will follow up in the clinic in 1 year's time, sooner p.r.n.. Thank you for allowing me partake in his care Coding Level of Care Code Est Pt Level 4 (05753) Complex EM visit Add On G2211 Diagnoses CAD (coronary artery disease) I25.10 HTN (hypertension) I10 CPT Codes EKG - CPT: 85508-[id number], Complete ([id number])
[2024-10-24 09:35] VITALS: BP 120/80; PULSE 65; BMI 40.4
== END 2024-10-24 10:04 | disposition home or self-care (01) ==
LOC: HO.HCS 09:20
PROVIDERS: PCP Internal Medicine; Visit Provider Internal Medicine Cardiovascular Disease
DX: I25.10 Atherosclerotic heart disease of native coronary artery without angina pectoris (principal); I10 Essential (primary) hypertension
CPT/HCPCS: 93010; 99214; G2211

== ENCOUNTER → 2024-10-24 09:20 | Outpatient (BNVA) | payer MEDICARE, SELFPAY | PROVIDERS: PCP Internal Medicine; Visit Provider Internal Medicine Cardiovascular Disease | DX: I25.10 Atherosclerotic heart disease of native coronary artery without angina pectoris (principal); I10 Essential (primary) hypertension | CPT/HCPCS: 93005; 99212 ==

== ENCOUNTER 2025-03-15 10:31 | Outpatient (REF) | payer MEDICARE, SELFPAY ==
[2025-03-15 10:33] LABS: MANUAL DIFF FLAG NO
[2025-03-15 10:42] LABS: Hematocrit 45.3 % (42.0-52.0); Hemoglobin 15.0 g/dl (14.0-18.0); Imm Gran Abs Auto 0.02 X10*3/uL (0.00-0.03); Imm Gran Pct Auto 0.3 % (0.0-0.4); Lymphocytes Absolute Auto 2.0 X10*3/uL (1.2-4.9); Mean Corpuscular HGB Conc 33.1 g/dl (31.0-36.0); Mean Corpuscular Hemoglobin 29.8 pg (27.0-33.0); Mean Corpuscular Volume 89.9 fL (80.0-98.0); NRBC Abs Auto 0.000 X10*3/uL (0.0-0.012); NRBC Pct Auto 0.0 /100WBC (0.0-0.2); Platelet Count 171 X10*3/uL (160-400); Red Blood Count 5.04 X10*6/uL (4.60-5.80); White Blood Count 6.6 X10*3/uL (4.8-10.8)
[2025-03-15 11:03] LABS: Alanine Aminotransferase 23 U/L (0-40); Albumin Level 3.8 g/dL (3.5-5.0); Alkaline Phosphatase 60 U/L (39-117); Anion Gap 11 (12-20); Aspartate Amino Transferase 26 U/L (5-37); Blood Urea Nitrogen 12 mg/dL (9-16); Calcium 8.8 mg/dL (8.4-10.2); Carbon Dioxide 28 mmol/L (22-29); Chloride 105 mmol/L (96-108); Cholesterol 124 mg/dL (<200); Estimated Glomerular Filt Rate > 60; HDL Cholesterol 47 mg/dL (>40); Potassium 4.1 mmol/L (3.3-5.1); Sodium 140 mmol/L (135-145); Total Protein 7.0 g/dL (6.5-8.0); Triglycerides 115 mg/dL (<150)
[2025-03-15 11:30] LABS: PSA,Total (Free>4and<10) 1.45 ng/mL (0.00-4.00)
== END 2025-03-15 10:32 ==
LOC: HO.LNP 10:31
PROVIDERS: Visit Provider Internal Medicine
DX: Z00.00 Encounter for general adult medical examination without abnormal findings (principal); Z12.5 Encounter for screening for malignant neoplasm of prostate; E11.9 Type 2 diabetes mellitus without complications; E78.6 Lipoprotein deficiency; D69.6 Thrombocytopenia, unspecified
CPT/HCPCS: 80053; 80061; 83036; 84153; 85025

== ENCOUNTER 2025-03-22 11:07 | Outpatient (REF) | payer MEDICARE, SELFPAY ==
--- OUTSIDE RECORDS SUMMARY | 2024-02-08 04:25 | XMS_ITS ---
Author Organization Gordy Rodriguez MD Address [address] [place] [phone] Support Name Relationship Address Phone Ayden Hernandez Caregiver [address] [facility] [address] [place] [phone] Gordy Rodriguez Caregiver [address] [facility] [address] [place] [phone] AnaElle diaz Caregiver [address] [facility] [address] [place] [phone] TonyAyden burgos Caregiver [address] [facility] [address] [place] [phone] Ramónkarina Joce Caregiver [address] [facility] [address] [place] [phone] Daniel Lyle Caregiver [address] [facility] [address] [place] [phone] Gordy Rodriguez Caregiver [address] [facility] [address] [place] [phone] BárbaraGina Caregiver [address] [facility] [address] [place] [phone] Unavailable Emergency Contact Unknown Antoni Powers Guarantor Unknown Care Team Providers Care Unloader Name Role Phone Gordy Rodriguez Primary Care Provider [phone] REASON FOR VISIT refill Medications Medication SIG (Take, Route, Fr equency, Duration) Notes Start Date End Date Status FLUoxetine HCl 40 MG Take 1 capsule by m outh once daily in the morning Orally Once a day for 90 days Active Encounters Encounter Location Date Provider Diagnosis Gordy Rodriguez MD [address] [facility] [address] [facility] [address] [place], [place] [phone] 02/08/2024 Gordy Bombardier Plan Of Treatment Medication Medication Name Sig Start Date Stop Date Notes FLUoxetine HCl 40 MG Take 1 capsule by m out once daily in the morning Orally Once a day for 90 days Next Appt Details Provider Name:Gordy Murrell ier, 09/13/2025 07:00:00 AM, [address] [place] [address], [place] [address], [place], [place], [phone], Provider Name:Gordy Murrell ier, 09/20/2025 10:00:00 AM, [address] [place] [address], [place] [address], [place], [place], [phone], Provider Name:Gordy Murrell ier, 03/19/2026 07:30:00 AM, [address] [place] [address], [address], [phone], Provider Name:Gordy Murrell chelseyr, 03/26/2026 09:30:00 AM, [address] [place] [address], [address], [phone], Progress Notes * Antoni POWERSDOB:[birth year] (68 yo M)Acc No.[id number]:02/08/2024 Patient: Gautam Antoni amador :1955 A ge:68 Y S ex:Male Address:[address] [place] [id number] * Refills Refill FLUoxetine HCl Capsule, 40 MG, Orally, 90, Take 1 capsule by mouth once daily in the morning, Once a day, 90 days, Refills=3 * true * Date: Generated for Carmel silver/Derek/Earnestsmitting on: 1 05/23/2024 02:33 PM EST
--- OUTSIDE RECORDS SUMMARY | 2024-03-09 03:00 | XMS_ITS ---
Author Organization Gordy Rodriguez MD Address [address] [place] [phone] Care Team Providers Care Imaging Scheduler Name Role Phone Gordy Rodriguez Primary Care Provider Results Component Value Reference Range Notes Complete Blood Count Auto Di ff Reviewed date:03/09/2024 03:33:57 PM Interpretation: Performing Lab:[facility], [address] [place] [phone] Notes/Report: White Blood Count 5.4 4.8-10.8 X10*3/uL Red Blood Count 4.88 4.60-5.80 X10*6/uL Hemoglobin 14.1 14.0-18.0 g/dl Hematocrit 44.1 42.0-52.0 % Mean Corpuscular Volume 90.4 80.0-98.0 fL Mean Corpuscular Hemoglobin 28.9 27.0-33.0 pg Mean Corpuscular HGB Conc 32.0 31.0-36.0 g/dl Red Cell Distribution Width 13.9 11.0-16.0 % Platelet Count 157 160-400 X10*3/uL Mean Platelet Volume 9.9 9.4-12.4 fL Neutrophils Percent Auto 54.8 45-73 % Imm Gran Pct Auto 0.4 0.0-0.4 % Lymphocytes Percent Auto 31.4 20-40 % Monocytes Percent Auto 7.5 2-11 % Eosinophils Percent Auto 4.8 0-4 % Basophils Percent Auto 1.1 0-2 % NRBC Pct Auto 0.0 0.0-0.2 /100WBC Neutrophils Absolute Auto 3.0 2.0-8.3 x10*3/u L Imm Gran Abs Auto 0.02 0.00-0.03 X10*3/uL Lymphocytes Absolute Auto 1.7 1.2-4.9 X10*3/u L Monocytes Absolute Auto 0.4 0.1-1.2 X10*3/uL Eosinophils Absolute Auto 0.3 0.0-0.4 X10*3/u L Basophils Absolute Auto 0.1 0.0-0.2 X10*3/uL NRBC Abs Auto 0.000 0.0-0.012 X10*3/uL Comprehensive [place]. Panel Fa st Reviewed date:03/09/2024 03:33:26 PM Interpretation: Performing Lab:[facility], [address] [place] [phone] Notes/Report: Sodium 142 135-145 mmol/L Potassium 4.4 3.3-5.1 mmol/L Chloride 107 96-108 mmol/L Carbon Dioxide 28 22-29 mmol/L Anion Gap 11 12-20 Blood Urea Nitrogen 12 9-16 mg/dL Creatinine 0.93 0.5-1.4 mg/dL Estimated Glomerular Filt Rate > 60 Chronic Kidney Disease: Estimated GFR < 60 mL/min/1.73m2 Severe Kidney Disease: Estimated GFR < 15 mL/min/1.73m2 Glucose Fasting 124 60-99 mg/dL A fasting glucose from 100-125 mg/dl is considered impaired (pre-diabetes). Calcium 8.9 8.4-10.2 mg/dL Bilirubin Total 0.7 0.0-1.0 mg/dL Aspartate Amino Transferase 33 5-37 U/L Alanine Aminotransferase 17 0-40 U/L Total Protein 6.8 6.5-8.0 g/dL Albumin Level 3.5 3.5-5.0 g/dL Alkaline Phosphatase 62 39-117 U/L Lipid Panel Reviewed date:03/09/2024 12:44:37 PM Interpretation: Performing Lab:[facility], [address] [place] [phone] Notes/Report: Triglycerides 85 <150 mg/dL Desirable Triglyceride: less than 150 mg/dL Borderline High Triglyceride 150-199 mg/dL High Triglyceride: 200-499 mg/dL Very High Triglyceride: greater than or equal to 5OO mg/dL Cholesterol 114 <200 mg/dL Desirable Cholesterol: less than 200 mg/dL Borderline High Cholesterol: 200-239 mg/dL High Cholesterol: greater than 239 mg/dL LDL Cholesterol Calculated 55 <100 mg/dL Desirable LDL: less than 100 mg/dL Near Optimal/Above Optimal LDL: 110-129 mg/dL Borderline High LDL: 130-159 mg/dL High LDL: 160-189 mg/dL Very High LDL: greater than or equal to 190 mg/dL HDL Cholesterol 42 >40 mg/dL Desirable HDL: greater than 40 mg/dL Note: This HDL assay may give artificially low results in patients with liver disease. PSA,Total (Free>4and<10) Reviewed date:03/09/2024 12:55:08 PM Interpretation: Performing Lab:[facility], [address] [place] [phone] Notes/Report: PSA,Total (Free>4and<10) 1.63 0.00-4.00 ng/mL A Free PSA was not performed: The percentage of Free PSA can be used to enhance the differentiation of prostate cancer from benign prostatic disease in subjects whose PSA levels are between 4.0 and 10.0 ng/mL. For subjects whose PSA levels are below 4.0 or above 10.0 ng/mL, the risk of prostate cancer is determined on the basis of the PSA alone. Therefore the % Free PSA is recommended only for those subjects whose PSA levels are between 4.0 and 10.0 ng/mL. PSA methodology: [place] Alinity i Chemiluminescent Microparticle Immunoassay (CMIA) Microalbumin, Random Reviewed date:03/09/2024 12:43:16 PM Interpretation: Performing Lab:[facility], [address] [place] [phone] Notes/Report: Creatinine Urine 116.28 Microalbumin Urine 21.0 Microalbum/Creatinine Ratio Ur 18.0 <30 ug/mg cr Albumin/Creatinine Ratio Reference Ranges: Normal: < 30 ug/mg creatinine Microalbuminuria: 30 - 300 ug/mg creatinine Clinical Albuminuria: > 300 ug/mg creatinine Hemoglobin A1c Reviewed date:03/09/2024 12:44:25 PM Interpretation: Performing Lab:[address] [phone] Notes/Report: Hemoglobin A1c % 5.6 <6.0 % Hemoglobin A1C Reference Range Adults: 4.8 - 6.0 % Non diabetic: < 6.0 % Goal: < 7.0 % Additional Action Suggested: > 8.0 % Note: Hemoglobin A1c results are invalid for patients with abnormal amounts of HbF. Blood transfusions may impact the HbA1c concentration in the patient sample. Estimated Average Glucose 114 eAG = Estimated average glucose which is %A1C expressed as average glucose, using the formula of the [id number] Average Glucose study (ADAG), Diabetes Care, Vol.31,#8, Nov. 2007 UA ClnCatch+Micro w/rflx Cul t Reviewed date:03/09/2024 12:44:02 PM Interpretation: Performing Lab:[facility], [address] [place] [phone] Notes/Report: Urine, Clean Catch Color Urine Yellow Appearance Urine Clear PH 6.0 5.0-9.0 Glucose Urine UA Negative Negative mg/dL Urine Blood Negative Negative Specific [place] - Urine 1.015 1.005-1.025 Urine Protein Negative Neg-Trace mg/dL Urine Ketones Negative Negative mg/dL Nitrite Urine Negative Negative Leukocyte Esterase Urine Negative Negative RBC Urine 0-2 0-2 /HPF WBC Urine 0-5 0-5 /HPF Squamous Epithelial Cell Urine 0-2 0-2 /HPF Bacteria Urine None Seen None Seen Hyaline Casts Urine 0-2 0-2 /LPF REASON FOR VISIT yearly fasting labs Encounters Encounter Location Date Provider Diagnosis Gordy Rodriguez MD [address] [place] [phone] 03/09/2024 Gordy Rodriguez Blood tests for rout ine general physical examination Z00.00 ; Type 2 diabetes mellitus without complication E11.9 ; Pure hypercholesterolemia E78.00 and Thrombocytopenia D69.6 Assessments Encounter Date Diagnosis (ICD Code) Assessment Notes Treatment Notes Treatment Clinical Notes Section Notes 03/09/[address] ine general physical examination (ICD-10 - Z00.00) 03/09/2024 Type 2 diabetes manuela itus without complication (ICD-10 - E11.9) 03/09/2024 Pure hypercholesterolemia (ICD-10 - E78.00) 03/09/2024 Thrombocytopenia (IC D-10 - D69.6) Plan Of Treatment Next Appt Details Provider Name:Gordy Murrell ier, 09/13/2025 07:00:00 AM, [address] [place] [address], [address], [phone], Provider Name:Gordy Murrell ier, 09/20/2025 10:00:00 AM, [address] [place] [address], [address], [phone], Provider Name:Gordy mullen, 03/19/2026 07:30:00 AM, [address] [place] [address], [address], [phone], Provider Name:Gordy Murrell ier, 03/26/2026 09:30:00 AM, [address] [place] [address], [phone], Progress Notes * Antoni POWERSDOB:[birth year] (69 yo M)Acc No.[id number]:03/09/2024 Progress Note Patient: Gautam LEANNISIAntoni Provider: Nam Rodriguez MD :1955 A ge:68 Y S ex:Male Date:03/09/2024 Address:[address] [place], [place] [id number] Subjective: * Chief Complaints: * 1 . Yearly fasting labs. * Medical History: Objective: * Vitals: Assessment: * Assessment: 1. B lood tests for routine general physical examination - Z00.00 (Primary) 2 .?Type 2 diabetes mellitus without complication - E11.9 3 . P ure hypercholesterolemia - E78.00 4 . T hrombocytopenia - D69.6 Plan: * Treatment: 2. T ype 2 diabetes mellitus without complication L AB: Complete Blood Count Auto Diff (Collection Date & Time - 03/09/2024 08:00 AM) L AB: Comprehensive [place]. Panel Fast (Collection Date & Time - 03/09/2024 08:00 AM) L AB: Lipid Panel (Collection Date & Time - 03/09/2024 08:00 AM) L AB: PSA,Total (Free>4and<10) (Collection Date & Time - 03/09/2024 08:00 AM) L AB: Microalbumin, Random (Collection Date & Time - 03/09/2024 08:00 AM) L AB: Hemoglobin A1c (Collection Date & Time - 03/09/2024 08:00 AM) L AB: UA ClnCatch+Micro w/rflx Cult (Collection Date & Time - 03/09/2024 08:00 AM) 3. P ure hypercholesterolemia L AB: Complete Blood Count Auto Diff (Collection Date & Time - 03/09/2024 08:00 AM) L AB: Comprehensive [place]. Panel Fast (Collection Date & Time - 03/09/2024 08:00 AM) L AB: Lipid Panel (Collection Date & Time - 03/09/2024 08:00 AM) L AB: PSA,Total (Free>4and<10) (Collection Date & Time - 03/09/2024 08:00 AM) L AB: Microalbumin, Random (Collection Date & Time - 03/09/2024 08:00 AM) L AB: Hemoglobin A1c (Collection Date & Time - 03/09/2024 08:00 AM) L AB: UA ClnCatch+Micro w/rflx Cult (Collection Date & Time - 03/09/2024 08:00 AM) 4. T hrombocytopenia L AB: Complete Blood Count Auto Diff (Collection Date & Time - 03/09/2024 08:00 AM) L AB: Comprehensive [place]. Panel Fast (Collection Date & Time - 03/09/2024 08:00 AM) L AB: Lipid Panel (Collection Date & Time - 03/09/2024 08:00 AM) L AB: PSA,Total (Free>4and<10) (Collection Date & Time - 03/09/2024 08:00 AM) L AB: Microalbumin, Random (Collection Date & Time - 03/09/2024 08:00 AM) L AB: Hemoglobin A1c (Collection Date & Time - 03/09/2024 08:00 AM) L AB: UA ClnCatch+Micro w/rflx Cult (Collection Date & Time - 03/09/2024 08:00 AM) * Procedure Codes: 3 6415 VENIPUNCT, ROUTINE* * * The named appointment provid er may or may not be the originator of this progress note, and it is not deemed complete until electronically signed by the appointment provider. Sign off status: Pending * Provider: Nam Rodriguez MD Date: 05/10/2023 Generated for Carmel silver/Derek/Abrahamitting on: 05/23/2024 02:33 PM EST
--- OUTSIDE RECORDS SUMMARY | 2024-03-16 03:30 | XMS_ITS ---
Author Organization Gordy Rodriguez MD Address [address] [place] [address] [phone] Support Name Relationship Address Phone Ayden Hernandez Caregiver [address] [facility] [address] [place] [address] [phone] Gordy Rodriguez Caregiver [address] [facility] [address] [place] [address] [phone] Elle Restrepo Caregiver [address] [facility] [address] [place] [address] [phone] Ayden Forte Caregiver [address] [facility] [address] [place] [address] [phone] RamónJoce collins Caregiver [address] [facility] [address] [place] [address] [phone] DanielLyle Caregiver [address] [facility] [address] [place] [address] [phone] Gordy Rodriguez Caregiver [address] [facility] [address] [place] [address] [phone] EliecerhoangryanGina burch Caregiver [address] [facility] [address] [place] [address] [phone] Unavailable Emergency Contact Unknown Antoni Powers Guarantor Unknown [phone] Care Team Providers Care Applications Packager Name Role Phone Gordy Rodriguez Primary Care Provider Allergies Allergen (clinical drug ingredient) Drug/Non Drug Allergy documented on EMR Reaction Allergy Type Onset Date Status Septra rash Drug Allergy Active Keflex rash Drug Allergy Active codeine Codeine Sulfate rash Drug Allergy A ctive Results Component Value Reference Range Notes Occult Blood, Stool, Guaiac Reviewed date:03/16/2024 01:34:19 PM Interpretation:Negative Performing Lab: Notes/Report: Negative Occult Blood, Stool, Guaiac Neg REASON FOR VISIT annual visit Medications Medication SIG (Take, Route, Frequency, Duration) Notes Start Date End Date Status Ipratropium-Albuterol 0.5-2.5 (3) MG/3ML USE 1 AMPULE IN NEBULIZER 4 TIMES DAILY Active Ventolin HFA * 108 (90 Base) MCG/ACT 2 puffs as needed Inhalation every 4 hrs Active Advair Diskus 250-50 MCG/ACT 1 puff Inhalation Twice a day Active FLUoxetine HCl 40 MG Take 1 capsule by m outh once daily in the morning Orally Once a day Active Metoprolol Succinate ER 50 MG 1 tablet Orally Once a day for 90 days Active Ezetimibe 10 MG Take 1 tablet by nelli th once daily Orally Once a day Active buPROPion HCl ER (XL) 300 MG Take 1 tablet by mouth once daily Orally Once a day Active Nitroglycerin 0.4 MG 1 tablet under the tongue and allow to dissolve as needed Sublingual as needed for 28 Active Albuterol Sulfate HFA 108 (90 Base) MCG/ACT INHALE 2 PUFFS BY MOUTH EVERY 4 HOURS NEEDED Active Alfuzosin HCl ER 10 MG TAKE 1 TABLET BY MOUTH ONCE DAILY IMMEDIATELY AFTER SAME MEAL EVERY DAY Orally Once a day for 90 days Active Docusate Sodium 100 MG 1 capsule as need ed Orally twice a day Active Omeprazole 20MG take one capsule by mouth once daily Orally Once a day for 90 days Active Abilify 5 MG 1 tablet Orally Once a day Active Atorvastatin Calcium 80 MG Take 1 tablet by mouth once daily Orally Once a day Active Acetaminophen 325 MG 3 tablet as needed Orally every 4 hrs Active Lasix 20 MG 1 tablet Orally Once a day for 30 day(s) Active Amiodarone HCl 200 MG 1 tablet Orally On ce a day Active Aspirin 81 MG 1 tablet Orally Once a day for 30 day(s) Active traMADol HCl 50 MG 1 tablet as needed O rally 3 times a day for 14 days 02/03/2022 Active Social History Tobacco Use: Social History Observation Description Date Details (start date - stop date) Former Smoker NA - NA Tobacco Use/Smoking Question Answer Notes Patient is a former smoker How long has it been since y ou last smoked? > 10 years Additional Findings: Tobacco Non-User Fo rmer smoker, currently using no form of tobacco Alcohol Screen Question Answer Notes Did you have a drink containing alcohol in the p ast year? No Points 0 Interpretation Negative Problems Problem Type SNOMED Code ICD Code Onset Dates Problem Status W/U Status Risk Notes Problem [id number] Hernandez's esophagus without dysplasia (K22.70) Active confirmed Vital Signs Blood pressure systolic 118 mm Hg 03/16/20 24 Blood pressure diastolic 60 mm Hg 024 Height 65 in 03/16/2024 Weight 237 lbs 03/16/2024 BMI 39.43 kg/m2 03/16/2024 weight is down 6 pounds [facility] Encounters Encounter Location Date Provider Diagnosis Gordy Rodriguez MD [address] [facility] [place], [place] [phone] 03/16/2024 Gordy Rodriguez Thrombocytopenia D69 .6 ; Annual physical exam Z00.00 ; Panlobular emphysema J43.1 ; Depression F32.9 ; Hernandez's esophagus without dysplasia K22.70 ; Type 2 diabetes mellitus without complication E11.9 ; Pure hypercholesterolemia E78.00 ; Severe major depression F32.2 ; Colon cancer screening Z12.11 and Depression screening Z13.31 Assessments Encounter Date Diagnosis (ICD Code) Assessment Notes Treatment Notes Treatment Clinical Notes Section Notes 03/16/2024 Thrombocytopenia (IC D-10 - D69.6) is stable very mild, will contnue to monitor 03/16/2024 Annual physical exam (ICD-10 - Z00.00) labs reviewed and discused with patient 03/16/2024 Panlobular emphysema (ICD-10 - J43.1) doing well on inhalers, will continue current regiment 03/16/2024 Depression (ICD-10 - F32.9) doing well on abilify, will continue current regiment 03/16/2024 Hernandez's esophagus without dysplasia (ICD-10 - K22.70) had endoscpy last year, will continue current regiment 03/16/2024 Type 2 diabetes manuela itus without complication (ICD-10 - E11.9) stable, will continue curent regiment 03/16/2024 Pure hypercholesterolemia (ICD-10 - E78.00) doig well, will continue current regiment 03/16/2024 Severe major depress ion (ICD-10 - F32.2) 03/16/2024 Colon cancer screeni ng (ICD-10 - Z12.11) guaiac negative 03/16/2024 Depression screening (ICD-10 - Z13.31) gative screen Plan Of Treatment Medication Medication Name Sig Start Date Stop Date Notes Ipratropium-Albuterol 0.5-2. 5 (3) MG/3ML USE 1 AMPULE IN NEBULIZER 4 TIMES DAILY Ventolin HFA * 108 (90 Base) MCG/ACT 2 puffs as needed Inhalation every 4 hrs FLUoxetine HCl 40 MG Take 1 capsule by m outh once daily in the morning Orally Once a day Ezetimibe 10 MG Take 1 tablet by nelli th once daily Orally Once a day buPROPion HCl ER (XL) 300 MG Take 1 tabl et by mouth once daily Orally Once a day Albuterol Sulfate HFA 108 (9 0 Base) MCG/ACT INHALE 2 PUFFS BY MOUTH EVERY 4 HOURS NEEDED Abilify 5 MG 1 tablet Orally Once a day Atorvastatin Calcium 80 MG Take 1 tablet by mouth once daily Orally Once a day Treatment Notes Assessment Notes Thrombocytopenia is stable very mild, will contnue to monitor Annual physical exam labs reviewed and d iscused with patient Panlobular emphysema doing well on inhal ers, will continue current regiment Depression doing well on abilif y, will continue current regiment Hernandez's esophagus without dysplasia miguel d endoscpy last year, will continue current regiment Type 2 diabetes mellitus without complic ation stable, will continue curent regiment Pure hypercholesterolemia doig well, gilmer l continue current regiment Colon cancer screening guaiac negative Depression screening gative screen Next Appt Details Follow Up: 6 Months, Reason: Provider Name:Gordy mullen, 09/13/2025 07:00:00 AM, [address] [place] [address], [address], [phone], Provider Name:Gordy mullen, 09/20/2025 10:00:00 AM, [address] [place] [address], [place] [address], [place], [place], [phone], Provider Name:Gordy mullen, 03/19/2026 07:30:00 AM, [address] [place] [address], [address], [phone], Provider Name:Gordy mullen, 03/26/2026 09:30:00 AM, [address] [place] [address], [address], [place], [place], [phone], Progress Notes * Antoni POWERS JDOB:[birth year] (68 yo M)Acc No.[id number]:03/16/2024 Progress Notes Patient: Antoni Aguilar Provider: Nam Rodriguez MD :1955 A ge:68 Y S ex:Male Date:03/16/2024 Address:[address] [place], [place] [phone] Subjective: * Chief Complaints: * A nnual visit * HPI: C ommunication Needs: Communication Needs D oes the patient have a hearing impairment N o, D oes the patient have a vision impairment? Y es, I f yes, what is the vision impairment? G lasses, D oes the patient have a cognition impairment? N o. F all Risk: History H ave you had any falls with injury in the past year? N o, H ave you had two or more falls in the past year? N o. S LC Questions: SDOH Questions I n the past year have you been worried about losing housing? N o, I n the past year have you or any family members you live with been unable to get any of the following when it was really needed? Check all that apply: N one. S ymptom(s): patientis a 68 yo male here for annual visit with review of recent labs and follow up of chronic issues. D epression Screening: PHQ-9 T houghts that you would be better off or of hurting yourself in some way N ot at all, T otal Score 0 . I nterpretation and Intervention D epression Screening Findings N egative, F ollow-Up for Depression : review of PHQ-9 found negative result, no follow-up needed. * ROS: G eneral/Constitutional: Patient denies f atigue , headache. C hange in appetite?denies. C hills d enies. F ever d enies. O phthalmologic: Blurred vision d enies. D ischarge d enies. P ain d enies. E NT: Decreased hearing d enies. S ore throat d enies.?Swollen glands d enies. E ndocrine: Cold intolerance d enies. E xcessive thirst d enies. H eat intolerance d enies. W eight loss d enies. R espiratory: Cough d enies. S hortness of breath at rest d enies. S hortness of breath with exertion d enies. W heezing d enies. C ardiovascular: Chest pain at rest d enies. C hest pain with exertion?denies. I rregular heartbeat d enies. S hortness of breath d enies. ? G astrointestinal: Abdominal pain d enies. C hange in bowel habits d enies. D iarrhea d enies. N ausea d enies. R ectal bleeding d enies. V omiting d enies . G enitourinary: Blood in urine d enies. D ifficulty urinating d enies. F requent urination d enies. M usculoskeletal: Patient denies m uscle aches. P ainful joints d enies. W eakness d enies. P eripheral Vascular: Patient denies r ed and blue toes. S kin: Dry skin d enies. I tching d enies. D enies?Mole(s), changes in moles, new moles or any lesions of concern. D enies P hotosensitivity. R yaa d enies. N eurologic: Dizziness d enies. F ainting d enies. H eadache?denies. * Medical History: * Surgical History: * Hospitalization/Major Diagno stic Procedure: * Family History: F ather: 52 yrs, diagnosed with CHF. M other: alive 94 yrs, diagnosed with Alzheimer disease. 1 0 brother(s) , 1 sister(s) . 2 son(s) , 1 daughter(s) - healthy. . majority of brothers are not healthy, Denies mental health/substance abuse family history, Denies mental health/substance abuse family history, Denies mental health/substance abuse family history. * Social History: T obacco Use: T obacco Use/Smoking P atient is a f ormer smoker, H ow long has it been since you last smoked? > 10 years, A dditional Findings: Tobacco Non-User F ormer smoker, currently using no form of tobacco. D rugs/Alcohol: A lcohol Screen D id you have a drink containing alcohol in the past year? N o, P oints 0 , I nterpretation N egative. M iscellaneous: C affeine: yes, frequency:, 1-2 cups per day. Children: yes. no Community involvements. Exercise: yes, walks the dog. Home smoke detector use: yes. Housing: owning. Living with: spouse. Marital status: . Occupation: Retired. Pets: cats: dogs:. no Travel outside of the [place]. * Medications: T akingAcetaminophen 325 MG Tablet 3 tablet as needed Orally every 4 hrsLasix 20 MG Tablet 1 tablet Orally Once a dayAmiodarone HCl 200 MG Tablet 1 tablet Orally Once a dayAspirin 81 MG Tablet Chewable 1 tablet Orally Once a daytraMADol HCl 50 MG Tablet 1 tablet as needed Orally 3 times a dayAbilify 5 MG Tablet 1 tablet Orally Once a dayAtorvastatin Calcium 80 MG Tablet Take 1 tablet by mouth once daily Orally Once a dayOmeprazole 20MG Capsule Delayed Release take one capsule by mouth once daily Orally Once a dayEzetimibe 10 MG Tablet Take 1 tablet by mouth once daily Orally Once a daybuPROPion HCl ER (XL) 300 MG Tablet Extended Release 24 Hour Take 1 tablet by mouth once daily Orally Once a dayAlfuzosin HCl ER 10 MG Tablet Extended Release 24 Hour TAKE 1 TABLET BY MOUTH ONCE DAILY IMMEDIATELY AFTER SAME MEAL EVERY DAY Orally Once a dayDocusate Sodium 100 MG Capsule 1 capsule as needed Orally twice a dayNitroglycerin 0.4 MG Tablet Sublingual 1 tablet under the tongue and allow to dissolve as needed Sublingual as neededIpratropium-Albuterol 0.5-2.5 (3) MG/3ML Solution USE 1 AMPULE IN NEBULIZER 4 TIMES DAILY Albuterol Sulfate HFA 108 (90 Base) MCG/ACT Aerosol Solution INHALE 2 PUFFS BY MOUTH EVERY 4 HOURS NEEDED Advair Diskus 250-50 MCG/ACT Aerosol Powder Breath Activated 1 puff Inhalation Twice a dayVentolin HFA * 108 (90 Base) MCG/ACT Aerosol Solution 2 puffs as needed Inhalation every 4 hrsMetoprolol Succinate ER 50 MG Tablet Extended Release 24 Hour 1 tablet Orally Once a dayFLUoxetine HCl 40 MG Capsule Take 1 capsule by mouth once daily in the morning Orally Once a dayTaking Acetaminophen 325 MG Tablet 3 tablet as needed Orally every 4 hrsTaking Lasix 20 MG Tablet 1 tablet Orally Once a dayTaking Amiodarone HCl 200 MG Tablet 1 tablet Orally Once a dayTaking Aspirin 81 MG Tablet Chewable 1 tablet Orally Once a dayTaking traMADol HCl 50 MG Tablet 1 tablet as needed Orally 3 times a dayTaking Abilify 5 MG Tablet 1 tablet Orally Once a dayTaking Atorvastatin Calcium 80 MG Tablet Take 1 tablet by mouth once daily Orally Once a dayTaking Omeprazole 20MG Capsule Delayed Release take one capsule by mouth once daily Orally Once a dayTaking Ezetimibe 10 MG Tablet Take 1 tablet by mouth once daily Orally Once a dayTaking buPROPion HCl ER (XL) 300 MG Tablet Extended Release 24 Hour Take 1 tablet by mouth once daily Orally Once a dayTaking Alfuzosin HCl ER 10 MG Tablet Extended Release 24 Hour TAKE 1 TABLET BY MOUTH ONCE DAILY IMMEDIATELY AFTER SAME MEAL EVERY DAY Orally Once a dayTaking Docusate Sodium 100 MG Capsule 1 capsule as needed Orally twice a dayTaking Nitroglycerin 0.4 MG Tablet Sublingual 1 tablet under the tongue and allow to dissolve as needed Sublingual as neededTaking Ipratropium-Albuterol 0.5-2.5 (3) MG/3ML Solution USE 1 AMPULE IN NEBULIZER 4 TIMES DAILY Taking Albuterol Sulfate HFA 108 (90 Base) MCG/ACT Aerosol Solution INHALE 2 PUFFS BY MOUTH EVERY 4 HOURS NEEDED Taking Advair Diskus 250-50 MCG/ACT Aerosol Powder Breath Activated 1 puff Inhalation Twice a dayTaking Ventolin HFA * 108 (90 Base) MCG/ACT Aerosol Solution 2 puffs as needed Inhalation every 4 hrsTaking Metoprolol Succinate ER 50 MG Tablet Extended Release 24 Hour 1 tablet Orally Once a dayTaking FLUoxetine HCl 40 MG Capsule Take 1 capsule by mouth once daily in the morning Orally Once a dayDiscontinuedAdvair Diskus 500-50 MCG/DOSE Aerosol Powder Breath Activated 1 puff Inhalation Twice a dayMedication List reviewed and reconciled with the patientDiscontinued Advair Diskus 500-50 MCG/DOSE Aerosol Powder Breath Activated 1 puff Inhalation Twice a dayMedication List reviewed and reconciled with the patient * Allergies: C odeine Sulfate: rashKeflex: rashSeptra: rashyes[Allergies Verified] Objective: * Vitals: H t: 65, Wt:237, BMI:39.43, BP:118/60 weight is down 6 pounds since 10-15-23. * P ast Orders: L ab:Hemoglobin A1c (Order Date - 03/09/2024) (Collection Date - 03/09/2024) Value Reference Range Hemoglobin A1c % 5.6 <6.0 - % Estimated Average Glucose 114 - mg/dL L ab:Complete Blood Count Auto Diff (Order Date - 03/09/2024) (Collection Date - 03/09/2024) Value Reference Range White Blood Count 5.4 4.8-10.8 - X10*3/uL Red Blood Count 4.88 4.60-5.80 - X10*6/uL Hemoglobin 14.1 14.0-18.0 - g/dl Hematocrit 44.1 42.0-52.0 - % Mean Corpuscular Volume 90.4 80.0-98.0 - fL Mean Corpuscular Hemoglobin 28.9 27.0-33.0 - pg Mean Corpuscular HGB Conc 32.0 31.0-36.0 - g/ dl Red Cell Distribution Width 13.9 11.0-16.0 - % Platelet Count 157 L 160-400 - X10*3/uL Mean Platelet Volume 9.9 9.4-12.4 - fL Neutrophils Percent Auto 54.8 45-73 - % Imm Gran Pct Auto 0.4 0.0-0.4 - % Lymphocytes Percent Auto 31.4 20-40 - % Monocytes Percent Auto 7.5 2-11 - % Eosinophils Percent Auto 4.8 H 0-4 - % Basophils Percent Auto 1.1 0-2 - % NRBC Pct Auto 0.0 0.0-0.2 - /100WBC Neutrophils Absolute Auto 3.0 2.0-8.3 - x10* 3/uL Imm Gran Abs Auto 0.02 0.00-0.03 - X10*3/uL Lymphocytes Absolute Auto 1.7 1.2-4.9 - X10* 3/uL Monocytes Absolute Auto 0.4 0.1-1.2 - X10*3/ uL Eosinophils Absolute Auto 0.3 0.0-0.4 - X10* 3/uL Basophils Absolute Auto 0.1 0.0-0.2 - X10*3/ uL NRBC Abs Auto 0.000 0.0-0.012 - X10*3/uL L ab:UA ClnCatch+Micro w/rflx Cult (Order Date - 03/09/2024) (Collection Date - 03/09/2024) Value Reference Range Color Urine Yellow - Appearance Urine Clear - PH 6.0 5.0-9.0 - Glucose Urine UA Negative Negative - mg/dL Urine Blood Negative Negative - Specific [place] - Urine 1.015 1.005-1.025 - Urine Protein Negative Neg-Trace - mg/dL Urine Ketones Negative Negative - mg/dL Nitrite Urine Negative Negative - Leukocyte Esterase Urine Negative Negative - RBC Urine 0-2 0-2 - /HPF WBC Urine 0-5 0-5 - /HPF Squamous Epithelial Cell Urine 0-2 0-2 - /HP F Bacteria Urine None Seen None Seen - Hyaline Casts Urine 0-2 0-2 - /LPF L ab:Comprehensive [place]. Panel Fast (Order Date - 03/09/2024) (Collection Date - 03/09/2024) Value Reference Range Sodium 142 135-145 - mmol/L Bilirubin Total 0.7 0.0-1.0 - mg/dL Aspartate Amino Transferase 33 5-37 - U/L Alanine Aminotransferase 17 0-40 - U/L Total Protein 6.8 6.5-8.0 - g/dL Albumin Level 3.5 3.5-5.0 - g/dL Alkaline Phosphatase 62 39-117 - U/L Potassium 4.4 3.3-5.1 - mmol/L Chloride 107 96-108 - mmol/L Carbon Dioxide 28 22-29 - mmol/L Anion Gap 11 L 12-20 - Blood Urea Nitrogen 12 9-16 - mg/dL Creatinine 0.93 0.5-1.4 - mg/dL Estimated Glomerular Filt Rate > 60 - Glucose Fasting 124 H 60-99 - mg/dL Calcium 8.9 8.4-10.2 - mg/dL L ab:Lipid Panel (Order Date - 03/09/2024) (Collection Date - 03/09/2024) Value Reference Range Triglycerides 85 <150 - mg/dL Cholesterol 114 <200 - mg/dL LDL Cholesterol Calculated 55 <100 - mg/dL HDL Cholesterol 42 >40 - mg/dL L ab:PSA,Total (Free>4and<10) (Order Date - 03/09/2024) (Collection Date - 03/09/2024) Value Reference Range PSA,Total (Free>4and<10) 1.63 0.00-4.00 - ng/ mL L ab:Microalbumin, Random (Order Date - 03/09/2024) (Collection Date - 03/09/2024) Value Reference Range Creatinine Urine 116.28 - mg/dL Microalbumin Urine 21.0 - mg/L Microalbum Creatinine Ratio Ur 18.0 <30 - ug/ mg cr * Examination: G eneral Examination: GENERAL APPEARANCE: w ell developed, well nourished, in no acute distress. HEAD: n ormocephalic, atraumatic. EYES: p upils equal, round, reactive to light and accommodation, sclera non-icteric. EARS: n ormal. ORAL CAVITY: m ucosa moist. THROAT: c lear. NECK/THYROID: n muriel supple, full range of motion, no cervical lymphadenopathy, no bruits. SKIN: w arm and dry, no suspicious lesions. HEART: r egular rate and rhythm, S1, S2 normal, no murmurs.? LUNGS: a bnormal with few scattered wheezes but good air movement. ABDOMEN: s oft, nontender, nondistended, bowel sounds present, normal, no organomegaly , no masses palpable. RECTAL EXAM: n ormal tone, no external hemorrhoids, no masses palpable, prostate normal, stool guaiac negative. MALE GENITOURINARY: u ncircumcised , no testicular mass , testes descended bilaterally. EXTREMITIES: n o clubbing, cyanosis, or edema. NEUROLOGIC: n onfocal, motor strength normal upper and lower extremities, sensory exam intact. Assessment: * Assessment: 1. A nnual physical exam - Z00.00 (Primary) 2 . T hrombocytopenia - D69.6 3 . P anlobular emphysema - J43.1 4 . D epression - F32.9 5 . B arrett's esophagus without dysplasia - K22.70 6 . T ype 2 diabetes mellitus without complication - E11.9 7 . P ure hypercholesterolemia - E78.00 8 . S evere major depression - F32.2 9 . C olon cancer screening - Z12.11 1 0. D epression screening - Z13.31 Plan: * Treatment: 2. T hrombocytopenia Notes: is stable very mild, will contnue to monitor 3. P anlobular emphysema Continue Albuterol Sulfate HFA Aerosol Solution, 108 (90 Base) MCG/ACT, INHALE 2 PUFFS BY MOUTH EVERY 4 HOURS NEEDED; C ontinue Ipratropium-Albuterol Solution, 0.5-2.5 (3) MG/3ML, USE 1 AMPULE IN NEBULIZER 4 TIMES DAILY; C ontinue Ventolin HFA * Aerosol Solution, 108 (90 Base) MCG/ACT, 2 puffs as needed, Inhalation, every 4 hrs. Notes: doing well on inhalers, will continue current regiment 4. D epression Notes: doing well on abilify, will continue current regiment 5. B arrett's esophagus without dysplasia Notes: had endoscpy last year, will continue current regiment 6. T ype 2 diabetes mellitus without complication Notes: stable, will continue curent regiment 7. P ure hypercholesterolemia Continue Atorvastatin Calcium Tablet, 80 MG, Take 1 tablet by mouth once daily, Orally, Once a day;?Continue Ezetimibe Tablet, 10 MG, Take 1 tablet by mouth once daily, Orally, Once a day. ? Notes: doig well, will continue current regiment 8. S evere major depression Continue Abilify Tablet, 5 MG, 1 tablet, Orally, Once a day; C ontinue buPROPion HCl ER (XL) Tablet Extended Release 24 Hour, 300 MG, Take 1 tablet by mouth once daily, Orally, Once a day; C ontinue FLUoxetine HCl Capsule, 40 MG, Take 1 capsule by mouth once daily in the morning, Orally, Once a day. 9. C olon cancer screening L AB: Occult Blood, Stool, Guaiac N egative Value Reference Range O ccult Blood, Stool, Guaiac Neg Notes: guaiac negative??10.?Depression screening? Notes: gative screen?? * Procedure Codes: 8 4232 TEST FOR BLOOD, FECES * Preventive Medicine: Counseling: C are goal follow-up plan: C ounseling for abnormal BMI provided?Yes, Hanna flaherty Normal BMI Follow-up Nam espinoza encouragement to exercise. * Follow Up: 6 Months * * Sign off status: Completed true * Provider: Nam Rodriguez MD Date: 05/17/2023 Generated for Carmel silver/Derek/eTransmitting on: 05/23/2024 02:32 PM EST History and Physical Notes * HPI (History of Present Illness) Category Sub-Category Detail Notes Category Not es Symptom(s) patientis a 68 yo male here for annual visit with review of recent labs and follow up of chronic issues. Depression Screening PHQ-9 Little inte rest or pleasure in doing things: Not at all Feeling down, depressed, or hopeless: No t at all Trouble falling or staying asleep, or sl eeping too much: Not at all Feeling tired or having little energy: N ot at all Poor appetite or overeating: Not at all Feeling bad about yourself o r that you are a failure, or have let yourself or your family down: Not at all Trouble concentrating on thi ngs, such as reading the newspaper or watching television: Not at all Moving or speaking so slowly that other people could have noticed; or the opposite, being so fidgety or restless that you have been moving around a lot more than usual: Not at all Thoughts that you would be b emily off or of hurting yourself in some way: Not at all Total Score: 0 Interpretation and Intervention Depression Vasile cordero Findings: Negative Follow-Up for Depression: : review of PH Q-9 found negative result, no follow-up needed SDOH Questions SDOH Questions In the past year have you been worried about losing housing?: No In the past year have you or any family members you live with been unable to get any of the following when it was really needed? Check all that apply:: None Fall Risk History Have you had any falls with injury i n the past year?: No Have you had two or more falls in the st year?: No Communication Needs Communication Needs Does the patient have a hearing impairment: No Does the patient have a vision impairmen t?: Yes If yes, what is the vision impairment?: Glasses Does the patient have a cognition impair ment?: No Examination Category Sub-Category Detail Notes Category Not es General Examination GENERAL APPEARANCE: well dev eloped, well nourished, in no acute distress HEAD: normocephalic, atrau matic EYES: pupils equal, round, reactive to light and accommodation, sclera non-icteric EARS: normal THROAT: clear NECK/THYROID: neck supple, full ra nge of motion, no cervical lymphadenopathy, no bruits HEART: regular rate and rhy thm, S1, S2 normal, no murmurs LUNGS: abnormal with few sc attered wheezes but good air movement ABDOMEN: soft, nontender, non distended, bowel sounds present, normal, no organomegaly , no masses palpable NEUROLOGIC: nonfocal, motor stre ngth normal upper and lower extremities, sensory exam intact SKIN: warm and dry, no usha picious lesions EXTREMITIES: no clubbing, cyanosi s, or edema MALE GENITOURINARY: uncircumcised , no t esticular mass , testes descended bilaterally RECTAL EXAM: normal tone, no exte rnal hemorrhoids, no masses palpable, prostate normal, stool guaiac negative ORAL CAVITY: mucosa moist
--- OUTSIDE RECORDS SUMMARY | 2024-05-25 06:13 | XMS_ITS ---
Author Organization Gordy Rodriguez MD Address [address] [place] [phone] Care Team Providers Care Inlayer Silver Name Role Phone Gordy Rodriguez Primary Care Provider [phone] REASON FOR VISIT RF Albuterol Medications Medication SIG (Take, Route, Frequency, Duration) Notes Start Date End Date Status Albuterol Sulfate HFA 108 (90 Base) MCG/ACT INHALE 2 PUFFS BY MOUTH EVERY 4 HOURS NEEDED Inhalation every 4 hrs for 90 days Active Encounters Encounter Location Date Provider Diagnosis Gordy Rodriguez MD [address] [place] [phone] 05/25/2024 Gordy Rodriguez Panlobular emphysema J43.1 Assessments Encounter Date Diagnosis (ICD Code) Assessment Notes Treatment Notes Treatment Clinical Notes Section Notes 05/25/2024 Panlobular emphysema (ICD-10 - J43.1) Plan Of Treatment Medication Medication Name Sig Start Date Stop Date Notes Albuterol Sulfate HFA 108 (9 0 Base) MCG/ACT INHALE 2 PUFFS BY MOUTH EVERY 4 HOURS NEEDED Inhalation every 4 hrs for 90 days Next Appt Details Provider Name:Gordy Murrell ier, 09/13/2025 07:00:00 AM, [address] [place] [address], [address], [phone], Provider Name:Gordy Verito Handy ier, 09/20/2025 10:00:00 AM, [address] [place] [address], [address], [phone], Provider Name:Gordy Murrell ier, 03/19/2026 07:30:00 AM, [address] [place] [address], [phone], Provider Name:Gordy Verito Handy ier, 03/26/2026 09:30:00 AM, [address] [place] [address], [address], [phone], Progress Notes * Antoni POWERS JDOB:[birth year] (68 yo M)Acc No.[id number]:05/25/2024 Patient: Gautam Antoni SAAVEDRA :1955 A ge:68 Y S ex:Male Address:[address] [place] [id number] * Refills Refill Albuterol Sulfate HFA Aerosol Solution, 108 (90 Base) MCG/ACT, Inhalation, 3, INHALE 2 PUFFS BY MOUTH EVERY 4 HOURS NEEDED, every 4 hrs, 90 days, Refills=3 * true * Date: Generated for Whitneyi ng/Faalexg/eTransmitting on: 1 05/23/2024 02:32 PM EST
--- OUTSIDE RECORDS SUMMARY | 2024-06-19 05:23 | XMS_ITS ---
Author Organization Gordy Rodriguez MD Address 10 [facility] [address] [place] [phone] Care Team Providers Care Cutting Machine Tender Helper Name Role Phone Gordy Rodriguez Primary Care Provider [phone] REASON FOR VISIT HCC Risk Codes 09/14 Encounters Encounter Location Date Provider Diagnosis Gordy Rodriguez MD 10 [facility] [address] [place] [phone] 06/19/2024 Gordy Rodriguez Plan Of Treatment Next Appt Details Provider Name:Gordy barbosar, 09/13/2025 07:00:00 AM, [address] [facility], [address], [place], [place], [phone], Provider Name:Gordy Murrell ier, 09/20/2025 10:00:00 AM, [address] [facility], [address], [place], [phone], Provider Name:Gordy Murrell ier, 03/19/2026 07:30:00 AM, [address] [place] [address], [address], [place], [phone], Provider Name:Gordy Murrell ier, 03/26/2026 09:30:00 AM, [address] [place] [address], [address], [place], [phone], Progress Notes * Antoni POWERSDOB:[birth year] (69 yo M)Acc No.[id number]:06/19/2024 Patient: Gautam Antoni SAAVEDRA :1955 A ge:69 Y S ex:Male Address:[address] [place] [id number] * true * Date: Generated for Carmel silver/Derek/eTransmitting on: 05/23/2024 02:32 PM EST
--- OUTSIDE RECORDS SUMMARY | 2024-09-07 02:30 | XMS_ITS ---
Author Organization Gordy Rodriguez MD Address [address] [place] [phone] Care Team Providers Care Machine Molder Squeeze Name Role Phone Gordy Rodriguez Primary Care Provider [phone] Results Component Value Reference Range Notes Liver Panel Reviewed date:09/07/2024 05:12:19 PM Interpretation: Performing Lab:[facility], [address] [place] [phone] Notes/Report: Bilirubin Total 0.4 0.0-1.0 mg/dL Bilirubin Direct 0.2 0.0-0.5 mg/dL Aspartate Amino Transferase 28 5-37 U/L Alanine Aminotransferase 17 0-40 U/L Total Protein 6.6 6.5-8.0 g/dL Albumin Level 3.6 3.5-5.0 g/dL Alkaline Phosphatase 61 39-117 U/L Glucose Fasting Reviewed date:09/07/2024 05:13:30 PM Interpretation: Performing Lab:[facility], [address] [place] [phone] Notes/Report: Glucose Fasting 98 60-99 mg/dL Lipid Panel with Reflex Reviewed date:09/07/2024 05:12:30 PM Interpretation: Performing Lab:[facility], [address] [place] [phone] Notes/Report: Triglycerides 102 <150 mg/dL Desirable Triglyceride: less than 150 mg/dL Borderline High Triglyceride 150-199 mg/dL High Triglyceride: 200-499 mg/dL Very High Triglyceride: greater than or equal to 5OO mg/dL Cholesterol 118 <200 mg/dL Desirable Cholesterol: less than 200 mg/dL Borderline High Cholesterol: 200-239 mg/dL High Cholesterol: greater than 239 mg/dL LDL Cholesterol Calculated 55 <100 mg/dL Desirable LDL: less than 100 mg/dL Near Optimal/Above Optimal LDL: 110-129 mg/dL Borderline High LDL: 130-159 mg/dL High LDL: 160-189 mg/dL Very High LDL: greater than or equal to 190 mg/dL HDL Cholesterol 43 >40 mg/dL Desirable HDL: greater than 40 mg/dL Note: This HDL assay may give artificially low results in patients with liver disease. Hemoglobin A1c Reviewed date:09/07/2024 12:37:36 PM Interpretation: Performing Lab:[facility], [address] [place] [phone] Notes/Report: Hemoglobin A1c % 5.5 <6.0 % Hemoglobin A1C Reference Range Adults: 4.8 - 6.0 % Non diabetic: < 6.0 % Goal: < 7.0 % Additional Action Suggested: > 8.0 % Note: Hemoglobin A1c results are invalid for patients with abnormal amounts of HbF. Blood transfusions may impact the HbA1c concentration in the patient sample. Estimated Average Glucose 111 eAG = Estimated average glucose which is %A1C expressed as average glucose, using the formula of the S2O-Fxoqjdd Average Glucose study (ADAG), Diabetes Care, Vol.31,#8, Nov. 2007 REASON FOR VISIT fasting lipids Encounters Encounter Location Date Provider Diagnosis Gordy Rodriguez MD [address] [place] [address] [place] [phone] 09/07/2024 Gordy Rodriguez Type 2 diabetes manuela itus without complication E11.9 and Pure hypercholesterolemia E78.00 Assessments Encounter Date Diagnosis (ICD Code) Assessment Notes Treatment Notes Treatment Clinical Notes Section Notes 09/07/2024 Type 2 diabetes manuela itus without complication (ICD-10 - E11.9) 09/07/2024 Pure hypercholesterolemia (ICD-10 - E78.00) Plan Of Treatment Next Appt Details Provider Name:Gordy mullen, 09/13/2025 07:00:00 AM, [address] [place] [address], [address] [place] [address], [phone], Provider Name:Gordy mullen, 09/20/2025 10:00:00 AM, [address] [place] [address], [address], [phone], Provider Name:Gordy mullen, 03/19/2026 07:30:00 AM, [address] [place] [address], [address] [place] [address], [phone], Provider Name:Gordy mullen, 03/26/2026 09:30:00 AM, [address] [place] [address], [address] [place] [address], [phone], Progress Notes * Antoni POWERSDOB:[birth year] (69 yo M)Acc No.[id number]:09/07/2024 Progress Note Patient: Antoni CHATTERJEE Charanjit Provider: Nam Rodriguez MD :1955 A ge:69 Y S ex:Male Date:09/07/2024 Address:[address] [place], [place] [phone] Subjective: * Chief Complaints: * 1 . Fasting lipids. * Medical History: Objective: * Vitals: Assessment: * Assessment: 1. T ype 2 diabetes mellitus without complication - E11.9 (Primary) 2 . P ure hypercholesterolemia - E78.00 Plan: * Treatment: 2. P ure hypercholesterolemia L AB: Liver Panel (Collection Date & Time - 09/07/2024 07:30 AM) L AB: Glucose Fasting (Collection Date & Time - 09/07/2024 07:30 AM) L AB: Lipid Panel with Reflex (Collection Date & Time - 09/07/2024 07:30 AM) L AB: Hemoglobin A1c (Collection Date & Time - 09/07/2024 07:30 AM) * Procedure Codes: 3 6415 VENIPUNCT, ROUTINE* * * The named appointment provid er may or may not be the originator of this progress note, and it is not deemed complete until electronically signed by the appointment provider. Sign off status: Pending * Provider: Nam Rodriguez MD Date: 0 09/07/2024 Generated for Carmel silver/Derek/Abrahamitting on: 1 05/23/2024 02:33 PM EST
--- OUTSIDE RECORDS SUMMARY | 2024-09-14 04:00 | XMS_ITS ---
Author Organization Gordy Rodriguez MD Address [address] [place] [phone] Care Team Providers Care Signal Maintenance Technician Name Role Phone Gordy Rodriguez Primary Care Provider Allergies Allergen (clinical drug ingredient) Drug/Non Drug Allergy documented on EMR Reaction Allergy Type Onset Date Status Septra rash Drug Allergy Active Keflex rash Drug Allergy Active codeine Codeine Sulfate rash Drug Allergy A ctive REASON FOR VISIT 6 month, Stopped Advair 1 month ago due to dizziness Medications Medication SIG (Take, Route, Frequency, Duration) Notes Start Date End Date Status Albuterol Sulfate HFA 108 (90 Base) MCG/ACT INHALE 2 PUFFS BY MOUTH EVERY 4 HOURS NEEDED Inhalation every 4 hrs Active Ventolin HFA * 108 (90 Base) MCG/ACT 2 puffs as needed Inhalation every 4 hrs Active Abilify 5 MG 1 tablet Orally Once a day Active Ipratropium-Albuterol 0.5-2.5 (3) MG/3ML USE 1 AMPULE IN NEBULIZER 4 TIMES DAILY Active buPROPion HCl ER (XL) 300 MG Take 1 tablet by mouth once daily Orally Once a day Active Metoprolol Succinate ER 50 MG 1 tablet Orally Once a day for 90 days Active Nitroglycerin 0.4 MG 1 tablet under the tongue and allow to dissolve as needed Sublingual as needed for 28 Active Ezetimibe 10 MG Take 1 tablet by nelli th once daily Orally Once a day Active Advair Diskus 250-50 MCG/ACT 1 puff Inhalation Twice a day Not-Taking Atorvastatin Calcium 80 MG Take 1 tablet by mouth once daily Orally Once a day Active Docusate Sodium 100 MG 1 capsule as need ed Orally twice a day Active Omeprazole 20MG take one capsule by mouth once daily Orally Once a day for 90 days Active Alfuzosin HCl ER 10 MG TAKE 1 TABLET BY MOUTH ONCE DAILY IMMEDIATELY AFTER SAME MEAL EVERY DAY Orally Once a day for 90 days Active Aspirin 81 MG 1 tablet Orally Once a day for 30 day(s) Active traMADol HCl 50 MG 1 tablet as needed Orally 3 times a day for 14 days 02/03/2022 Active Lasix 20 MG 1 tablet Orally Once a day for 30 day(s) Active Amiodarone HCl 200 MG 1 tablet Orally On ce a day Active Symbicort 160-4.5 MCG/ACT 2 puffs Inhala tion twice a day for 30 days 09/14/2024 Active Acetaminophen 325 MG 3 tablet as needed Orally every 4 hrs Active FLUoxetine HCl 40 MG Take 1 capsule by m out once daily in the morning Orally Once a day Active Vital Signs Blood pressure systolic 112 mm Hg 09/15/19 25 Blood pressure diastolic 54 mm Hg 025 Height 65 in 09/14/2024 Weight 243 lbs 09/14/2024 BMI 40.43 kg/m2 09/14/2024 weight is up 6 pounds since 03-16-24 Encounters Encounter Location Date Provider Diagnosis Gordy Rodriguez MD [address] [place] [address] [place] [phone] 09/14/2024 Gordy Rodriguez Type 2 diabetes manuela itus without complication E11.9 ; Panlobular emphysema J43.1 and Pure hypercholesterolemia E78.00 Assessments Encounter Date Diagnosis (ICD Code) Assessment Notes Treatment Notes Treatment Clinical Notes Section Notes 09/14/2024 Type 2 diabetes mellitus without complication (ICD-10 - E11.9) good aic even though he is eating poorly, advised on diet, will continue to monitor g 09/14/2024 Panlobular emphysema (ICD-10 - J43.1) patient verbalized understanding of instructions of medication have him use updraft at least twice a daystable 09/14/2024 Pure hypercholesterolemia (ICD-10 - E78.00) stable, will continue current regiment Plan Of Treatment Medication Medication Name Sig Start Date Stop Date Notes Albuterol Sulfate HFA 108 (9 0 Base) MCG/ACT INHALE 2 PUFFS BY MOUTH EVERY 4 HOURS NEEDED Inhalation every 4 hrs Ventolin HFA * 108 (90 Base) MCG/ACT 2 puffs as needed Inhalation every 4 hrs Ipratropium-Albuterol 0.5-2. 5 (3) MG/3ML USE 1 AMPULE IN NEBULIZER 4 TIMES DAILY Ezetimibe 10 MG Take 1 tablet by nelli th once daily Orally Once a day Atorvastatin Calcium 80 MG Take 1 tablet by mouth once daily Orally Once a day Symbicort 160-4.5 MCG/ACT 2 puffs Inhala tion twice a day for 30 days 09/14/2024 Treatment Notes Assessment Notes Type 2 diabetes mellitus without complic ation good aic even though he is eating poorly, advised on diet, will continue to monitor Panlobular emphysema patient verbalized understanding of instructions of medication Pure hypercholesterolemia stable, will c ontinue current regiment Next Appt Details Follow Up: 2 Months copd, Re ason: Provider Name:Gordy mullen, 09/13/2025 07:00:00 AM, [address] [place] [address], [address], [place], [phone], Provider Name:Gordy mullen, 09/20/2025 10:00:00 AM, [address] [facility], [address], [place], [phone], Provider Name:Gordy mullen, 03/19/2026 07:30:00 AM, [address] [facility], [address], [place], [place], [phone], Provider Name:Gordy Murrell ier, 03/26/2026 09:30:00 AM, [address] [facility], [address], [place], [place], [phone], Progress Notes * Antoni POWERS JDOB:[birth year] (69 yo M)Acc No.[id number]:09/14/2024 Progress Notes Patient: Antoni CHATTERJEE Provider: Nam Rodriguez MD :1955 A ge:69 Y S ex:Male Date:09/14/2024 Address:[address] [place] [address] Subjective: * Chief Complaints: * 6 monthStopped Advair 1 month ago due to dizziness * HPI: S ymptom(s): patient is a 69 yo male here for 6 month follow up visit/ insurance won;t pay for advair so he stopped. * ROS: G eneral/Constitutional: Denies C hills. D enies F atigue. D enies F ever. D enies H eadache. E NT: Denies S ore throat. R espiratory: Admits C ough. A dmits S hortness of breath at rest. A dmits S hortness of breath with exertion. A dmits W heezing. G astrointestinal: Denies D iarrhea. D enies N ausea. P sychiatric: Denies A nxiety. D enedie D epressed mood. D enies E ating disorder. D enies S ubstance abuse. D enies S uicidal thoughts. ? * Medical History: * Surgical History: * Hospitalization/Major Diagno stic Procedure: * Medications: T akingAcetaminophen 325 MG Tablet 3 tablet as needed Orally every 4 hrs Lasix 20 MG Tablet 1 tablet Orally Once a day Amiodarone HCl 200 MG Tablet 1 tablet Orally Once a day Aspirin 81 MG Tablet Chewable 1 tablet Orally Once a day traMADol HCl 50 MG Tablet 1 tablet as needed Orally 3 times a day Omeprazole 20MG Capsule Delayed Release take one capsule by mouth once daily Orally Once a day Alfuzosin HCl ER 10 MG Tablet Extended Release 24 Hour TAKE 1 TABLET BY MOUTH ONCE DAILY IMMEDIATELY AFTER SAME MEAL EVERY DAY Orally Once a day Docusate Sodium 100 MG Capsule 1 capsule as needed Orally twice a day Nitroglycerin 0.4 MG Tablet Sublingual 1 tablet under the tongue and allow to dissolve as needed Sublingual as needed Metoprolol Succinate ER 50 MG Tablet Extended Release 24 Hour 1 tablet Orally Once a day Abilify 5 MG Tablet 1 tablet Orally Once a day Atorvastatin Calcium 80 MG Tablet Take 1 tablet by mouth once daily Orally Once a day Ezetimibe 10 MG Tablet Take 1 tablet by mouth once daily Orally Once a day buPROPion HCl ER (XL) 300 MG Tablet Extended Release 24 Hour Take 1 tablet by mouth once daily Orally Once a day Ipratropium-Albuterol 0.5-2.5 (3) MG/3ML Solution USE 1 AMPULE IN NEBULIZER 4 TIMES DAILY Ventolin HFA * 108 (90 Base) MCG/ACT Aerosol Solution 2 puffs as needed Inhalation every 4 hrs FLUoxetine HCl 40 MG Capsule Take 1 capsule by mouth once daily in the morning Orally Once a day Albuterol Sulfate HFA 108 (90 Base) MCG/ACT Aerosol Solution INHALE 2 PUFFS BY MOUTH EVERY 4 HOURS NEEDED Inhalation every 4 hrs Taking Acetaminophen 325 MG Tablet 3 tablet as needed Orally every 4 hrs Taking Lasix 20 MG Tablet 1 tablet Orally Once a day Taking Amiodarone HCl 200 MG Tablet 1 tablet Orally Once a day Taking Aspirin 81 MG Tablet Chewable 1 tablet Orally Once a day Taking traMADol HCl 50 MG Tablet 1 tablet as needed Orally 3 times a day Taking Omeprazole 20MG Capsule Delayed Release take one capsule by mouth once daily Orally Once a day Taking Alfuzosin HCl ER 10 MG Tablet Extended Release 24 Hour TAKE 1 TABLET BY MOUTH ONCE DAILY IMMEDIATELY AFTER SAME MEAL EVERY DAY Orally Once a day Taking Docusate Sodium 100 MG Capsule 1 capsule as needed Orally twice a day Taking Nitroglycerin 0.4 MG Tablet Sublingual 1 tablet under the tongue and allow to dissolve as needed Sublingual as needed Taking Metoprolol Succinate ER 50 MG Tablet Extended Release 24 Hour 1 tablet Orally Once a day Taking Abilify 5 MG Tablet 1 tablet Orally Once a day Taking Atorvastatin Calcium 80 MG Tablet Take 1 tablet by mouth once daily Orally Once a day Taking Ezetimibe 10 MG Tablet Take 1 tablet by mouth once daily Orally Once a day Taking buPROPion HCl ER (XL) 300 MG Tablet Extended Release 24 Hour Take 1 tablet by mouth once daily Orally Once a day Taking Ipratropium-Albuterol 0.5-2.5 (3) MG/3ML Solution USE 1 AMPULE IN NEBULIZER 4 TIMES DAILY Taking Ventolin HFA * 108 (90 Base) MCG/ACT Aerosol Solution 2 puffs as needed Inhalation every 4 hrs Taking FLUoxetine HCl 40 MG Capsule Take 1 capsule by mouth once daily in the morning Orally Once a day Taking Albuterol Sulfate HFA 108 (90 Base) MCG/ACT Aerosol Solution INHALE 2 PUFFS BY MOUTH EVERY 4 HOURS NEEDED Inhalation every 4 hrs Not-Taking/PRNAdvair Diskus 250-50 MCG/ACT Aerosol Powder Breath Activated 1 puff Inhalation Twice a day Not-Taking/PRN Advair Diskus 250-50 MCG/ACT Aerosol Powder Breath Activated 1 puff Inhalation Twice a day * Allergies: C odeine Sulfate: rashKeflex: rashSeptra: rashyes[Allergies Verified] Objective: * Vitals: H t: 65, Wt: 243, BMI:40.43, BP:112/54, Wt-k.22. weight is up 6 pounds since 03-16-24. * P ast Orders: L ab:Hemoglobin A1c (Order Date - 09/07/2024) (Collection Date & Time - 09/07/2024 07:30 AM) Value Reference Range Hemoglobin A1c % 5.5 <6.0 - % Estimated Average Glucose 111 - mg/dL L ab:Liver Panel (Order Date - 09/07/2024) (Collection Date & Time - 09/07/2024 07:30 AM) Value Reference Range Bilirubin Total 0.4 0.0-1.0 - mg/dL Bilirubin Direct 0.2 0.0-0.5 - mg/dL Aspartate Amino Transferase 28 5-37 - U/L Alanine Aminotransferase 17 0-40 - U/L Total Protein 6.6 6.5-8.0 - g/dL Albumin Level 3.6 3.5-5.0 - g/dL Alkaline Phosphatase 61 39-117 - U/L L ab:Glucose Fasting (Order Date - 09/07/2024) (Collection Date & Time - 09/07/2024 07:30 AM) Value Reference Range Glucose Fasting 98 60-99 - mg/dL L ab:Lipid Panel with Reflex (Order Date - 09/07/2024) (Collection Date & Time - 09/07/2024 07:30 AM) Value Reference Range Triglycerides 102 <150 - mg/dL Cholesterol 118 <200 - mg/dL LDL Cholesterol Calculated 55 <100 - mg/dL HDL Cholesterol 43 >40 - mg/dL * Examination: G eneral Examination: GENERAL APPEARANCE: w ell developed, well nourished. HEAD: n ormocephalic. SKIN: g ood turgor. HEART: r egular rate and rhythm, no murmurs, rubs, gallops.? LUNGS: d iffuse wheezes. Assessment: * Assessment: 1. T ype 2 diabetes mellitus without complication - E11.9 (Primary) 2 . P anlobular emphysema - J43.1 3 . P ure hypercholesterolemia - E78.00 ? Plan: * Treatment: 2. P anlobular emphysema Start Symbicort Aerosol, 160-4.5 MCG/ACT, 2 puffs, Inhalation, twice a day, 30 days, 1, Refills 11;?Continue Ipratropium-Albuterol Solution, 0.5-2.5 (3) MG/3ML, USE 1 AMPULE IN NEBULIZER 4 TIMES DAILY; C ontinue Ventolin HFA * Aerosol Solution, 108 (90 Base) MCG/ACT, 2 puffs as needed, Inhalation, every 4 hrs; C ontinue Albuterol Sulfate HFA Aerosol Solution, 108 (90 Base) MCG/ACT, INHALE 2 PUFFS BY MOUTH EVERY 4 HOURS NEEDED, Inhalation, every 4 hrs. Notes: patient verbalized understanding of instructions of medication Clinical Notes: have him use updraft at least twice a daystable 3. P ure hypercholesterolemia Continue Atorvastatin Calcium Tablet, 80 MG, Take 1 tablet by mouth once daily, Orally, Once a day;?Continue Ezetimibe Tablet, 10 MG, Take 1 tablet by mouth once daily, Orally, Once a day. ? Notes: stable, will continue current regiment * Procedure Codes: * Follow Up: 2 Months copd * * Sign off status: Completed true * Provider: Nam Rodriguez MD Date: 0 09/14/2024 Generated for Carmel silver/Derek/Abrahamitting on: 1 05/23/2024 02:34 PM EST History and Physical Notes * HPI (History of Present Illness) Category Sub-Category Detail Notes Category Not es Symptom(s) patient is a 69 yo male here for 6 month follow up visit/ insurance won;t pay for Bizible so he stopped Examination Category Sub-Category Detail Notes Category Not es General Examination GENERAL APPEARANCE: well developed , well nourished HEAD: normocephalic HEART: regular rate and rhy thm, no murmurs, rubs, gallops LUNGS: diffuse wheezes SKIN: good turgor
--- OUTSIDE RECORDS SUMMARY | 2024-11-20 05:15 | XMS_ITS ---
Author Organization Gordy Rodriguez MD Address [address] [place] [phone] Care Team Providers Care It Project Lead Name Role Phone Gordy Rodriguez Primary Care Provider Allergies Allergen (clinical drug ingredient) Drug/Non Drug Allergy documented on EMR Reaction Allergy Type Onset Date Status Septra rash Drug Allergy Active Keflex rash Drug Allergy Active codeine Codeine Sulfate rash Drug Allergy A ctive Results Component Value Reference Range Notes Glucose, finger stick Reviewed date:11/20/2024 10:02:49 AM Interpretation: Performing Lab: Notes/Report: Value 133 REASON FOR VISIT 2 month COPD Medications Medication SIG (Take, Route, Frequency, Duration) Notes Start Date End Date Status Aspirin 81 MG 1 tablet Orally Once a day for 30 day(s) Active Ipratropium-Albuterol 0.5-2.5 (3) MG/3ML USE 1 AMPULE IN NEBULIZER 4 TIMES DAILY Active Lasix 20 MG 1 tablet Orally Once a day for 30 day(s) Active Amiodarone HCl 200 MG 1 tablet Orally On ce a day Active Acetaminophen 325 MG 3 tablet as needed Orally every 4 hrs Active Advair Diskus 250-50 MCG/ACT 1 puff Inhalation Twice a day Not-Taking Ezetimibe 10 MG Take 1 tablet by nelli th once daily Orally Once a day Active Atorvastatin Calcium 80 MG Take 1 tablet by mouth once daily Orally Once a day Active Ventolin HFA * 108 (90 Base) MCG/ACT 2 puffs as needed Inhalation every 4 hrs Active Albuterol Sulfate HFA 108 (90 Base) MCG/ACT INHALE 2 PUFFS BY MOUTH EVERY 4 HOURS NEEDED Inhalation every 4 hrs Active Metoprolol Succinate ER 50 MG 1 tablet Orally Once a day for 90 days Active Symbicort 160-4.5 MCG/ACT 2 puffs Inhala tion twice a day for 30 days 09/14/2024 Active FLUoxetine HCl 40 MG Take 1 capsule by m outh once daily in the morning Orally Once a day Active Abilify 5 MG 1 tablet Orally Once a day Active buPROPion HCl ER (XL) 300 MG Take 1 tablet by mouth once daily Orally Once a day Active Nitroglycerin 0.4 MG 1 tablet under the tongue and allow to dissolve as needed Sublingual as needed for 28 Active Alfuzosin HCl ER 10 MG TAKE 1 TABLET BY MOUTH ONCE DAILY IMMEDIATELY AFTER SAME MEAL EVERY DAY Orally Once a day for 90 days Active Docusate Sodium 100 MG 1 capsule as need ed Orally twice a day Active traMADol HCl 50 MG 1 tablet as needed Orally 3 times a day for 14 days 02/03/2022 Active Omeprazole 20MG take one capsule by mouth once daily Orally Once a day for 90 days Active Vital Signs Blood pressure systolic 112 mm Hg 11/21/19 25 Blood pressure diastolic 60 mm Hg 025 Height 65 in 11/20/2024 Weight 243 lbs 11/20/2024 BMI 40.43 kg/m2 11/20/2024 Encounters Encounter Location Date Provider Diagnosis Gordy Rodriguez MD [address] [place] [address] [place] [phone] 11/20/2024 Gordy Rodriguez Type 2 diabetes mellitus without complication E11.9 and Panlobular emphysema J43.1 Assessments Encounter Date Diagnosis (ICD Code) Assessment Notes Treatment Notes Treatment Clinical Notes Section Notes 11/20/2024 Type 2 diabetes mellitus without complication (ICD-10 - E11.9) doing well, no need for medication at this time 11/20/2024 Panlobular emphysema (ICD-10 - J43.1) doing much better on symbicort, will continue current regiment Plan Of Treatment Medication Medication Name Sig Start Date Stop Date Notes Ipratropium-Albuterol 0.5-2. 5 (3) MG/3ML USE 1 AMPULE IN NEBULIZER 4 TIMES DAILY Ventolin HFA * 108 (90 Base) MCG/ACT 2 puffs as needed Inhalation every 4 hrs Albuterol Sulfate HFA 108 (9 0 Base) MCG/ACT INHALE 2 PUFFS BY MOUTH EVERY 4 HOURS NEEDED Inhalation every 4 hrs Treatment Notes Assessment Notes Type 2 diabetes mellitus wit hout complication doing well, no need for medication at this time Panlobular emphysema doing much better o n symbicort, will continue current regiment Next Appt Details Provider Name:Gordy mullen, 09/13/2025 07:00:00 AM, [address] [place] [address], [address] [place] [address], [phone], Provider Name:Gordy mullen, 09/20/2025 10:00:00 AM, [address] [place] [address], [address], [phone], Provider Name:Gordy mullen, 03/19/2026 07:30:00 AM, [address] [place] [address], [address], [phone], Provider Name:Gordy mullen, 03/26/2026 09:30:00 AM, [address] [place] [address], [address], [phone], Progress Notes * Antoni POWERSDOB:[birth year] (69 yo M)Acc No.[id number]:11/20/2024 Progress Notes Patient: Antoni CHATTERJEE Provider: Nam Rodriguez MD :1955 A ge:69 Y S ex:Male Date:11/20/2024 Address:[address] [place] [address] Subjective: * Chief Complaints: * 2 month COPD * HPI: S ymptom(s): patient is a 69 yo male here for 2 month follow up COPD/ breathing is better with the n ew inhaler/ symbicort made a difference. * ROS: G eneral/Constitutional: Denies C hills. D enies F atigue. D enies F ever. D enies H eadache. E NT: Denies S ore throat. R espiratory: Denies C ough. D enies S hortness of breath at rest. D enies S hortness of breath with exertion. G astrointestinal: Denies D iarrhea. D enies N ausea. P sychiatric: Denies A nxiety. D enedie D epressed mood. D enedie D ifficulty sleeping. D enies S uicidal thoughts. * Medical History: * Surgical History: * [...] Tablet 1 tablet Orally Once a day buPROPion HCl ER (XL) 300 MG Tablet Extended Release 24 Hour Take 1 tablet by mouth once daily Orally Once a day FLUoxetine HCl 40 MG Capsule Take 1 capsule by mouth once daily in the morning Orally Once a day Symbicort 160-4.5 MCG/ACT Aerosol 2 puffs Inhalation twice a day Atorvastatin Calcium 80 MG Tablet Take 1 tablet by mouth once daily Orally Once a day Ezetimibe 10 MG Tablet Take 1 tablet by mouth once daily Orally Once a day Ipratropium-Albuterol 0.5-2.5 (3) MG/3ML Solution USE 1 AMPULE IN NEBULIZER 4 TIMES DAILY Ventolin HFA * 108 (90 Base) MCG/ACT Aerosol Solution 2 puffs as needed Inhalation every 4 hrs Albuterol Sulfate HFA 108 (90 Base) MCG/ACT [...] 1 tablet Orally Once a day Taking buPROPion HCl ER (XL) 300 MG Tablet Extended Release 24 Hour Take 1 tablet by mouth once daily Orally Once a day Taking FLUoxetine HCl 40 MG Capsule Take 1 capsule by mouth once daily in the morning Orally Once a day Taking Symbicort 160-4.5 MCG/ACT Aerosol 2 puffs Inhalation twice a day Taking Atorvastatin Calcium 80 MG [...] as needed Inhalation every 4 hrs Taking Albuterol Sulfate HFA 108 (90 Base) MCG/ACT Aerosol Solution INHALE 2 PUFFS BY MOUTH EVERY 4 HOURS NEEDED Inhalation every 4 hrs Not-Taking/PRNAdvair Diskus 250-50 MCG/ACT Aerosol Powder Breath Activated 1 puff Inhalation Twice a day Medication List reviewed and reconciled with the patientNot-Taking/PRN Advair Diskus 250-50 MCG/ACT Aerosol Powder Breath Activated 1 puff Inhalation Twice a day Medication List reviewed and reconciled with the patient * Allergies: C odeine Sulfate: rashKeflex: rashSeptra: rashyes[Allergies Verified] Objective: * Vitals: H t: 65, Wt: 243, BMI:40.43, BP:112/60, Wt-k.22. * Examination: G eneral Examination: GENERAL APPEARANCE: w ell developed, well nourished. HEAD: n ormocephalic. SKIN: g ood turgor. HEART: r egular rate and rhythm, no murmurs, rubs, gallops.? LUNGS: n o wheezes, rales, rhonchi, good air movement, clear to auscultation bilaterally. EXTREMITIES: n o edema. Assessment: * Assessment: 1. T ype 2 diabetes mellitus without complication - E11.9 (Primary) 2 . P anlobular emphysema - J43.1 Plan: * Treatment: Value Reference Range V alue 133 Notes: doing well, no need for medication at this time??2.?Panlobular emphysema? Continue Albuterol Sulfate HFA Aerosol Solution, 108 (90 Base) MCG/ACT, INHALE 2 PUFFS BY MOUTH EVERY 4 HOURS NEEDED, Inhalation, every 4 hrs;?Continue Ventolin HFA * Aerosol Solution, 108 (90 Base) MCG/ACT, 2 puffs as needed, Inhalation, every 4 hrs;?Continue Ipratropium-Albuterol Solution, 0.5-2.5 (3) MG/3ML, USE 1 AMPULE IN NEBULIZER 4 TIMES DAILY.?? Notes: doing much better on symbicort, will continue current regiment?? * Procedure Codes: 8 2947 ASSAY, GLUCOSE, BLOOD QUANT, Modifiers: QW * * Sign off status: Completed true * Provider: Nam Rodriguez MD Date: 0 11/20/2024 Generated for Carmel silver/Derek/Abrahamitting on: 05/23/2024 02:32 PM EST History and Physical Notes * HPI (History of Present Illness) Category Sub-Category Detail Notes Category Not es Symptom(s) patient is a 69 yo male here for 2 month follow up COPD/ breathing is better with the n ew inhaler/ symbicort made a difference Examination Category Sub-Category Detail Notes Category Not es General Examination GENERAL APPEARANCE: well developed , well nourished HEAD: normocephalic HEART: regular rate and rhy thm, no murmurs, rubs, gallops LUNGS: no wheezes, rales, r honchi, good air movement, clear to auscultation bilaterally SKIN: good turgor EXTREMITIES: no edema
--- OUTSIDE RECORDS SUMMARY | 2025-03-15 02:15 | XMS_ITS ---
Author Organization Gordy Rodriguez MD Address [address] [place] [phone] Support Name Relationship Address Phone Ayden Hernandez Caregiver [facility] D[facility] [address] [place] [phone] Gordy Rodriguez [facility]giver [facility] [address] [place] [phone] AnaElle diaz Caregiver [address] [facility] [address] [place] [phone] TonyAyden burgos Caregiver [facility] [address] [place] [address] [phone] Ramónkarina Joce Caregiver [address] [facility] [address] [place] [phone] Daniel Lyle Caregiver [facility] franc[facility] [address] [place] [phone] Gordy Rodriguez Caregiver [address] [facility] [address] [place] [address] [phone] BárbaraGina Caregiver [address] [facility] [address] [place] [address] [phone] Unavailable Emergency Contact Unknown Antoni Powers Guarantor Unknown [phone] Care Team Providers Care Factory Worker Name Role Phone Gordy Rodriguez Primary Care Provider Results Component Value Reference Range Notes Complete Blood Count Auto Di ff Reviewed date:03/15/2025 04:22:29 PM Interpretation: Performing Lab:[facility], [address] [place] [phone] Notes/Report: White Blood Count 6.6 4.8-10.8 X10*3/uL Red Blood Count 5.04 4.60-5.80 X10*6/uL Hemoglobin 15.0 14.0-18.0 g/dl Hematocrit 45.3 42.0-52.0 % Mean Corpuscular Volume 89.9 80.0-98.0 fL Mean Corpuscular Hemoglobin 29.8 27.0-33.0 pg Mean Corpuscular HGB Conc 33.1 31.0-36.0 g/dl Red Cell Distribution Width 13.7 11.0-16.0 % Platelet Count 171 160-400 X10*3/uL Mean Platelet Volume 9.8 9.4-12.4 fL Neutrophils Percent Auto 55.1 45-73 % Imm Gran Pct Auto 0.3 0.0-0.4 % Lymphocytes Percent Auto 29.7 20-40 % Monocytes Percent Auto 8.8 2-11 % Eosinophils Percent Auto 5.2 0-4 % Basophils Percent Auto 0.9 0-2 % NRBC Pct Auto 0.0 0.0-0.2 /100WBC Neutrophils Absolute Auto 3.6 2.0-8.3 x10*3/u L Imm Gran Abs Auto 0.02 0.00-0.03 X10*3/uL Lymphocytes Absolute Auto 2.0 1.2-4.9 X10*3/u L Monocytes Absolute Auto 0.6 0.1-1.2 X10*3/uL Eosinophils Absolute Auto 0.3 0.0-0.4 X10*3/u L Basophils Absolute Auto 0.1 0.0-0.2 X10*3/uL NRBC Abs Auto 0.000 0.0-0.012 X10*3/uL Lipid Panel Reviewed date:03/15/2025 12:39:27 PM Interpretation: Performing Lab:[facility], [address] [place] [phone] Notes/Report: Triglycerides 115 <150 mg/dL Desirable Triglyceride: less than 150 mg/dL Borderline High Triglyceride 150-199 mg/dL High Triglyceride: 200-499 mg/dL Very High Triglyceride: greater than or equal to 5OO mg/dL Cholesterol 124 <200 mg/dL Desirable Cholesterol: less than 200 mg/dL Borderline High Cholesterol: 200-239 mg/dL High Cholesterol: greater than 239 mg/dL LDL Cholesterol Calculated 54 <100 mg/dL Desirable LDL: less than 100 mg/dL Near Optimal/Above Optimal LDL: 110-129 mg/dL Borderline High LDL: 130-159 mg/dL High LDL: 160-189 mg/dL Very High LDL: greater than or equal to 190 mg/dL HDL Cholesterol 47 >40 mg/dL Desirable HDL: greater than 40 mg/dL Note: This HDL assay may give artificially low results in patients with liver disease. PSA,Total (Free>4and<10) Reviewed date:03/15/2025 12:38:40 PM Interpretation: Performing Lab:[address] [phone] Notes/Report: PSA,Total (Free>4and<10) 1.45 0.00-4.00 ng/mL A Free PSA was not [...] [place] Alinity i Chemiluminescent Microparticle Immunoassay (CMIA) Hemoglobin A1c Reviewed date:03/15/2025 12:38:31 PM Interpretation: Performing Lab:[facility], [address] [place] [phone] Notes/Report: Hemoglobin A1c % 5.6 <6.0 % [...] average glucose, using the formula of the [id number] Average Glucose study (ADAG), Diabetes Care, Vol.31,#8, Nov. 2007 REASON FOR VISIT fasting yearly labs Encounters Encounter Location Date Provider Diagnosis Gordy Rodriguez MD [address] [place] [address] [address] [place], [place] [phone] 03/15/2025 Gordy Rodriguez Blood tests for rout ine general physical examination Z00.00 ; Type 2 diabetes mellitus without complication E11.9 ; Low HDL (under 40) E78.6 and Thrombocytopenia D69.6 Assessments Encounter Date Diagnosis (ICD Code) Assessment Notes Treatment Notes Treatment Clinical Notes Section Notes 03/15/2025 Blood tests for routine general physical examination (ICD-10 - Z00.00) 03/15/2025 Type 2 diabetes mellitus without complication (ICD-10 - E11.9) 03/15/2025 Low HDL (under 40) (ICD-10 - E78.6) 03/15/2025 Thrombocytopenia (ICD-10 - D69.6) Plan Of Treatment Pending Test Test Name Order Date [facility]. Panel Fast Microalbumin, Random 03/15/2025 UA ClnCatch+Micro w/rflx Cult 03/15/2025 Next Appt Details Provider Name:Gordy mullen, 09/13/2025 07:00:00 AM, [address] [place] [address], [address], [phone], Provider Name:Gordy mullen, 09/20/2025 10:00:00 AM, [address] [place] [address], [address] [place] [address], [phone], Provider Name:Gordy mullen, 03/19/2026 07:30:00 AM, [address] [place] [address], [address], [phone], Provider Name:Gordy mullen, 03/26/2026 09:30:00 AM, [address] [place] [address], [address], [phone], Progress Notes * Antoni POWERSDOB:[birth year] (69 yo M)Acc No.[id number]:03/15/2025 Progress Note Patient: Gautam SAAVEDRA Antoni Donohue Provider: Nam Rodriguez MD :1955 A ge:69 Y S ex:Male Date:03/15/2025 Address:[address] [place] [address] Subjective: * Chief Complaints: * 1 . Fasting yearly labs. * Medical History: Objective: * Vitals: Assessment: * Assessment: 1. B lood tests for routine general physical examination - Z00.00 (Primary) 2 .?Type 2 diabetes mellitus without complication - E11.9 3 . L ow HDL (under 40) - E78.6 4 . T hrombocytopenia - D69.6 Plan: * Treatment: 2. T ype 2 diabetes mellitus without complication L AB: Comprehensive [facility]. Panel Fast L AB: Microalbumin, Random L AB: UA ClnCatch+Micro w/rflx Cult L AB: Complete Blood Count Auto Diff (Collection Date & Time - 03/15/2025 07:15 AM) L AB: Lipid Panel (Collection Date & Time - 03/15/2025 07:15 AM) L AB: PSA,Total (Free>4and<10) (Collection Date & Time - 03/15/2025 07:15 AM) L AB: Hemoglobin A1c (Collection Date & Time - 03/15/2025 07:15 AM) 3. L ow HDL (under 40) L AB: Comprehensive [facility]. Panel Fast L AB: Microalbumin, Random L AB: UA ClnCatch+Micro w/rflx Cult L AB: Complete Blood Count Auto Diff (Collection Date & Time - 03/15/2025 07:15 AM) L AB: Lipid Panel (Collection Date & Time - 03/15/2025 07:15 AM) L AB: PSA,Total (Free>4and<10) (Collection Date & Time - 03/15/2025 07:15 AM) L AB: Hemoglobin A1c (Collection Date & Time - 03/15/2025 07:15 AM) 4. T hrombocytopenia L AB: Comprehensive [facility]. Panel Fast L AB: Microalbumin, Random L AB: UA ClnCatch+Micro w/rflx Cult L AB: Complete Blood Count Auto Diff (Collection Date & Time - 03/15/2025 07:15 AM) L AB: Lipid Panel (Collection Date & Time - 03/15/2025 07:15 AM) L AB: PSA,Total (Free>4and<10) (Collection Date & Time - 03/15/2025 07:15 AM) L AB: Hemoglobin A1c (Collection Date & Time - 03/15/2025 07:15 AM) * Procedure Codes: 3 6415 VENIPUNCT, ROUTINE* * * The named appointment provid er may or may not be the originator of this progress note, and it is not deemed complete until electronically signed by the appointment provider. Sign off status: Pending * Provider: Nam Rodriguez MD Date: 05/16/2024 Generated for Carmel silver/Derek/Sarah Beth on: 05/23/2024 02:32 PM EST
--- OUTSIDE RECORDS SUMMARY | 2025-03-22 04:30 | XMS_ITS ---
Author Organization Gordy Rodriguez MD Address [address] [place], [place] [phone] Support Name Relationship Address Phone Ayden Hernandez Caregiver [address] [facility] [address] [facility] [address] [place] [phone] Gordy Rodriguez Caregiver [address] [facility] [address] [facility] [address] [place] [phone] Elle Restrepo Caregiver [address] [facility] [address] [facility] [address] [place] [phone] TonyAyden burgos Caregiver [address] [facility] [address] [facility] [address] [place] [phone] RamónJoce collins Caregiver [address] [facility] [address] [facility] [address] [place] [phone] DanielLyle Caregiver [address] [facility] [address] [place] [address] [phone] Gordy Rodriguez Caregiver [address] [facility] [address] [facility] [address] [place] [phone] EliecerhoangryanGina burch Caregiver [address] [facility] [address] [facility] [address] [place] [phone] Unavailable Emergency Contact Unknown [phone] Antoni Powers Guarantor Unknown Care Team Providers Care Automotive Professional Name Role Phone Gordy Rodriguez Primary Care Provider [phone] Allergies Allergen (clinical drug ingredient) Drug/Non Drug Allergy documented on EMR Reaction Allergy Type Onset Date Status Septra rash Drug Allergy Active Keflex rash Drug Allergy Active codeine Codeine Sulfate rash Drug Allergy A ctive Results Component Value Reference Range Notes Microalbumin, Random (Not ye t reviewed by provider) Interpretation: Performing Lab:[facility] [place], [address] [place] [phone] Notes/Report: Creatinine Urine 61.90 Microalbumin Urine 19.0 Microalbum/Creatinine Ratio Ur 30.6 <30 ug/mg cr Albumin/Creatinine Ratio Reference Ranges: Normal: < 30 ug/mg creatinine Microalbuminuria: 30 - 300 ug/mg creatinine Clinical Albuminuria: > 300 ug/mg creatinine UA ClnCatch+Micro w/rflx Cul t Reviewed date:03/22/2025 12:27:11 PM Interpretation: Performing Lab:[facility] [place], [address] [place] [phone] Notes/Report: Urine, Clean Catch Color Urine Yellow Appearance Urine Cloudy PH 6.0 5.0-9.0 Glucose Urine UA Negative Negative mg/dL Urine Blood Negative Negative Specific [place] - Urine 1.010 1.005-1.025 Urine Protein Trace Neg-Trace mg/dL [place] noted in microscopic exam Urine Ketones Negative Negative mg/dL Nitrite Urine Negative Negative Leukocyte Esterase Urine Negative Negative RBC Urine 0-2 0-2 /HPF WBC Urine 0-5 0-5 /HPF Squamous Epithelial Cell Urine 0-2 0-2 /HPF Bacteria Urine None Seen None Seen Hyaline Casts Urine 6-10 0-2 /LPF * *CORRECTED REPORT * REASON FOR VISIT annual visit Medications Medication SIG (Take, Route, Frequency, Duration) Notes Start Date End Date Status Advair Diskus 250-50 MCG/ACT 1 puff Inhalation Twice a day Not-Taking Alfuzosin HCl ER 10 MG TAKE 1 TABLET BY MOUTH ONCE DAILY IMMEDIATELY AFTER SAME MEAL EVERY DAY for 90 Active Metoprolol Succinate ER 50 MG TAKE 1 TABLET BY MOUTH ONCE DAILY for 90 Active Omeprazole 20 MG TAKE 1 CAPSULE BY MO UTH ONCE DAILY Active buPROPion HCl ER (XL) 300 MG Take 1 tablet by mouth once daily Orally Once a day Active Abilify 5 MG 1 tablet Orally Once a day Active Symbicort 160-4.5 MCG/ACT 2 puffs Inhala tion twice a day 09/14/2024 Active FLUoxetine HCl 40 MG TAKE 1 CAPSULE BY M OUTH ONCE DAILY IN THE MORNING Active Albuterol Sulfate HFA 108 (90 Base) MCG/ACT INHALE 2 PUFFS BY MOUTH EVERY 4 HOURS NEEDED Inhalation every 4 hrs Active Ipratropium-Albuterol 0.5-2.5 (3) MG/3ML USE 1 AMPULE IN NEBULIZER 4 TIMES DAILY Active Ventolin HFA * 108 (90 Base) MCG/ACT 2 puffs as needed Inhalation every 4 hrs Not-Takin g Nitroglycerin 0.4 MG 1 tablet under the tongue and allow to dissolve as needed Sublingual as needed for 28 Active Docusate Sodium 100 MG 1 capsule as need ed Orally twice a day Active Aspirin 81 MG 1 tablet Orally Once a day for 30 day(s) Active Acetaminophen 325 MG 3 tablet as needed Orally every 4 hrs Active Atorvastatin Calcium 80 MG TAKE 1 TABLET BY MOUTH ONCE DAILY Active Ezetimibe 10 MG TAKE 1 TABLET BY ZULMA TH ONCE DAILY Active Lasix 20 MG 1 tablet Orally Once a day for 30 day(s) Active Amiodarone HCl 200 MG 1 tablet Orally On ce a day Active Social History Tobacco Use: [...] ast year? No Points 0 Interpretation Negative Vital Signs Blood pressure systolic 116 mm Hg 03/22/20 25 Blood pressure diastolic 70 mm Hg 025 Height 65 in 03/22/2025 Weight 234 lbs 03/22/2025 BMI 38.94 kg/m2 03/22/2025 weight is own 9 pounds since 11-20-24 Encounters Encounter Location Date Provider Diagnosis Gordy Rodriguez MD [address] [place] [address] [place] [phone] 03/22/2025 Gordy Rodriguez Adult general medica l exam Z00.00 ; Type 2 diabetes mellitus without complication E11.9 ; Hernandez's esophagus without dysplasia K22.70 ; Depression F32.9 ; Panlobular emphysema J43.1 ; Colon cancer screening Z12.11 ; Depression screening Z13.31 and Pure hypercholesterolemia E78.00 Assessments Encounter Date Diagnosis (ICD Code) Assessment Notes Treatment Notes Treatment Clinical Notes Section Notes 03/22/2025 Adult general medica l exam (ICD-10 - Z00.00) labs reviewed and discussed [facility] patient 03/22/2025 Type 2 diabetes manuela itus without complication (ICD-10 - E11.9) 03/22/2025 Hernandez's esophagus without dysplasia (ICD-10 - K22.70) 03/22/2025 Depression (ICD-10 - F32.9) 03/22/2025 Panlobular emphysema (ICD-10 - J43.1) 03/22/2025 Colon cancer screeni ng (ICD-10 - Z12.11) no stool, is schedule for colnoscopy 03/22/2025 Depression screening (ICD-10 - Z13.31) negative screen 03/22/2025 Pure hypercholesterolemia (ICD-10 - E78.00) stable, will continue current regiment Plan Of Treatment Medication Medication Name Sig Start Date Stop Date Notes Omeprazole 20 MG TAKE 1 CAPSULE BY MO UTH ONCE DAILY buPROPion HCl ER (XL) 300 MG Take 1 tabl et by mouth once daily Orally Once a day Abilify 5 MG 1 tablet Orally Once a day Symbicort 160-4.5 MCG/ACT 2 puffs Inhala tion twice a day 09/14/2024 FLUoxetine HCl 40 MG TAKE 1 CAPSULE BY M OUTH ONCE DAILY IN THE MORNING Albuterol Sulfate HFA 108 (9 0 Base) MCG/ACT INHALE 2 PUFFS BY MOUTH EVERY 4 HOURS NEEDED Inhalation every 4 hrs Ipratropium-Albuterol 0.5-2. 5 (3) MG/3ML USE 1 AMPULE IN NEBULIZER 4 TIMES DAILY Atorvastatin Calcium 80 MG TAKE 1 TABLET BY MOUTH ONCE DAILY Ezetimibe 10 MG TAKE 1 TABLET BY ZULMA TH ONCE DAILY Treatment Notes Assessment Notes Adult general medical exam labs reviewed and discussed [facility] patient Colon cancer screening no stool, is sche dule for colnoscopy Depression screening negative screen Pure hypercholesterolemia stable, will c ontinue current regiment Pending Test Test Name Order Date Microalbumin, Random 03/22/2025 Next Appt Details Follow Up: 6 Months, Reason: Provider Name:Gordy mullen, 09/13/2025 07:00:00 AM, [address] [place] [address], Suite [facility], [place], [place], [phone], Provider Name:Gordy mullen, 09/20/2025 10:00:00 AM, [address] [facility], [address], [place], [place], [phone], Provider Name:Gordy Murrell ier, 03/19/2026 07:30:00 AM, [address] [facility], [address], [place], [place], [phone], Provider Name:Gordy Murrell ier, 03/26/2026 09:30:00 AM, [address] [place] [address], [address], [place], [place], [phone], Progress Notes * ZAIRA, Antoni JDOB:[birth year] (69 yo M)Acc No.[id number]:03/22/2025 Progress Notes Patient: Antoni CHATTERJEE Provider: Nam Rodriguez MD :1955 A ge:69 Y S ex:Male Date:03/22/2025 Address:[address] [place], [place] [phone] Subjective: * Chief Complaints: * 1 . Annual visit. * HPI: D epression Screening: PHQ-9 L ittle interest or pleasure in doing things N ot at all, F eeling down, depressed, or hopeless N ot at all, T rouble falling or staying asleep, or sleeping too much N ot at all, F eeling tired or having little energy N ot at all, P oor appetite or overeating N ot at all, F eeling bad about yourself or that you are a failure, or have let yourself or your family down N ot at all, T rouble concentrating on things, such as reading the newspaper or watching television N ot at all, M oving or speaking so slowly that other people could have noticed; or the opposite, being so fidgety or restless that you have been moving around a lot more than usual N ot at all, T houghts that you would be better off or of hurting yourself in some way N ot at all, T otal Score 0 . I nterpretation and Intervention D epression Screening Findings N egative, F ollow-Up for Depression : review of PHQ-9 found negative result, no follow-up needed, P atient Lifestyle Goals P atient wants to maintain a healthy emotional balance, B arriers N o specific barriers, is motivated to feel better, works at this everyday, S elf-Managment Goals E xercise at least 3xs per week. C ommunication Needs: Communication Needs D oes [...] all that apply: N one. S ymptom(s): patient is a 69 yo male here for annual visit woth review of recent ;abs and follow up of chronci issues h ere for yearly evaluation. * ROS: G eneral/Constitutional: Change in appetite d enies. C hills d enies. F ever d [...] F requent urination d enies. M usculoskeletal: Painful joints d enies. W eakness d enies. ? S kin: Dry skin d enies. I tching d enies. D enies?Mole(s), changes in moles, new moles or any lesions of concern. D enies P hotosensitivity. R yaa d enies. N eurologic: Dizziness d enies. F ainting d enies. H eadache?denies. * Medical History: H istory of knee arthritis, Upper and lower endo 2013. due in 5 years, Pulmonary emboli dec 2011, colonoscopy 10/10/2007; 07/05/2013 - repeat 5 years; colonoscopy done 12/25/19 Dr. Hernandez - Repeat 5 years Colonoscopy, Former smoker. * Family History: F ather: 52 yrs, [...] frequency:, 1-2 cups per day. Children: yes. Community involvements: no. Exercise: yes, walks the dog. Home smoke detector use: yes. Housing: owning. Living with: spouse. Marital status: . Occupation: Retired. Pets: cats: dogs:. * Medications: T aking Acetaminophen 325 MG Tablet 3 tablet as needed Orally every 4 hrs , Taking Lasix 20 MG Tablet 1 tablet Orally Once a day , Taking Amiodarone HCl 200 MG Tablet 1 tablet Orally Once a day , Taking Aspirin 81 MG Tablet Chewable 1 tablet Orally Once a day , Taking Docusate Sodium 100 MG Capsule 1 capsule as needed Orally twice a day , Taking Nitroglycerin 0.4 MG Tablet Sublingual 1 tablet under the tongue and allow to dissolve as needed Sublingual as needed , Taking Abilify 5 MG Tablet 1 tablet Orally Once a day , Taking Symbicort 160-4.5 MCG/ACT Aerosol 2 puffs Inhalation twice a day , Taking Albuterol Sulfate HFA 108 (90 Base) MCG/ACT Aerosol Solution INHALE 2 PUFFS BY MOUTH EVERY 4 HOURS NEEDED Inhalation every 4 hrs , Taking Ipratropium-Albuterol 0.5-2.5 (3) MG/3ML Solution USE 1 AMPULE IN NEBULIZER 4 TIMES DAILY , Taking Atorvastatin Calcium 80 MG Tablet TAKE 1 TABLET BY MOUTH ONCE DAILY , Taking Ezetimibe 10 MG Tablet TAKE 1 TABLET BY MOUTH ONCE DAILY , Taking FLUoxetine HCl 40 MG Capsule TAKE 1 CAPSULE BY MOUTH ONCE DAILY IN THE MORNING , Taking buPROPion HCl ER (XL) 300 MG Tablet Extended Release 24 Hour Take 1 tablet by mouth once daily Orally Once a day , Taking Metoprolol Succinate ER 50 MG Tablet Extended Release 24 Hour TAKE 1 TABLET BY MOUTH ONCE DAILY , Taking Alfuzosin HCl ER 10 MG Tablet Extended Release 24 Hour TAKE 1 TABLET BY MOUTH ONCE DAILY IMMEDIATELY AFTER SAME MEAL EVERY DAY , Taking Omeprazole 20 MG Capsule Delayed Release TAKE 1 CAPSULE BY MOUTH ONCE DAILY , Not-Taking/PRN Ventolin HFA * 108 (90 Base) MCG/ACT Aerosol Solution 2 puffs as needed Inhalation every 4 hrs , Not-Taking/PRN Advair Diskus 250-50 MCG/ACT Aerosol Powder Breath Activated 1 puff Inhalation Twice a day , Discontinued traMADol HCl 50 MG Tablet 1 tablet as needed Orally 3 times a day , Medication List reviewed and reconciled with the patient * Allergies: C odeine Sulfate: rash, Keflex: rash, Septra: rash. Objective: * Vitals: H t: 65, Wt: 234, BMI:38.94, BP:116/70, Wt-k.14. weight is own 9 pounds since 11-20-24. * P ast Orders: L ab:Lipid Panel (Order Date - 03/15/2025) (Collection Date & Time - 03/15/2025 07:15 AM) Value Reference Range Triglycerides 115 <150 - mg/dL Cholesterol 124 <200 - mg/dL LDL Cholesterol Calculated 54 <100 - mg/dL HDL Cholesterol 47 >40 - mg/dL L ab:PSA,Total (Free>4and<10) (Order Date - 03/15/2025) (Collection Date & Time - 03/15/2025 07:15 AM) Value Reference Range PSA,Total (Free>4and<10) 1.45 0.00-4.00 - ng/ mL L ab:Hemoglobin A1c (Order Date - 03/15/2025) (Collection Date & Time - 03/15/2025 07:15 AM) Value Reference Range Hemoglobin A1c % 5.6 <6.0 - % Estimated Average Glucose 114 - mg/dL L ab:Comprehensive Met. Panel (Order Date - 03/15/2025) (Collection Date & Time - 03/15/2025 07:15 AM) Value Reference Range Sodium 140 135-145 - mmol/L Bilirubin Total 0.5 0.0-1.0 - mg/dL Aspartate Amino Transferase 26 5-37 - U/L Alanine Aminotransferase 23 0-40 - U/L Total Protein 7.0 6.5-8.0 - g/dL Albumin Level 3.8 3.5-5.0 - g/dL Alkaline Phosphatase 60 39-117 - U/L Potassium 4.1 3.3-5.1 - mmol/L Chloride 105 96-108 - mmol/L Carbon Dioxide 28 22-29 - mmol/L Anion Gap 11 L 12-20 - Blood Urea Nitrogen 12 9-16 - mg/dL Creatinine 0.79 0.5-1.4 - mg/dL Estimated Glomerular Filt Rate > 60 - Glucose Random 112 60-115 - mg/dL Calcium 8.8 8.4-10.2 - mg/dL L ab:Complete Blood Count Auto Diff (Order Date - 03/15/2025) (Collection Date & Time - 03/15/2025 07:15 AM) Value Reference Range White Blood Count 6.6 4.8-10.8 - X10*3/uL Red Blood Count 5.04 4.60-5.80 - X10*6/uL Hemoglobin 15.0 14.0-18.0 - g/dl Hematocrit 45.3 42.0-52.0 - % Mean Corpuscular Volume 89.9 80.0-98.0 - fL Mean Corpuscular Hemoglobin 29.8 27.0-33.0 - pg Mean Corpuscular HGB Conc 33.1 31.0-36.0 - g/ dl Red Cell Distribution Width 13.7 11.0-16.0 - % Platelet Count 171 160-400 - X10*3/uL Mean Platelet Volume 9.8 9.4-12.4 - fL Neutrophils Percent Auto 55.1 45-73 - % Imm Gran Pct Auto 0.3 0.0-0.4 - % Lymphocytes Percent Auto 29.7 20-40 - % Monocytes Percent Auto 8.8 2-11 - % Eosinophils Percent Auto 5.2 H 0-4 - % Basophils Percent Auto 0.9 0-2 - % NRBC Pct Auto 0.0 0.0-0.2 - /100WBC Neutrophils Absolute Auto 3.6 2.0-8.3 - x10* 3/uL Imm Gran Abs Auto 0.02 0.00-0.03 - X10*3/uL Lymphocytes Absolute Auto 2.0 1.2-4.9 - X10* 3/uL Monocytes Absolute Auto 0.6 0.1-1.2 - X10*3/ uL Eosinophils Absolute Auto 0.3 0.0-0.4 - X10* 3/uL Basophils Absolute Auto 0.1 0.0-0.2 - X10*3/ uL NRBC Abs Auto 0.000 0.0-0.012 - X10*3/uL * Examination: G eneral Examination: GENERAL APPEARANCE: [...] rhythm, S1, S2 normal, no murmurs.? LUNGS: c lear to auscultation bilaterally. ABDOMEN: s oft, nontender, nondistended, bowel sounds present, normal, no organomegaly , no masses palpable. RECTAL EXAM: n ormal tone, no external hemorrhoids, no masses palpable, prostate normal, no stool. is going to have colonoscopy this year. MALE GENITOURINARY: u ncircumcised, no penile lesions or discharge, testes descended bilaterally, no testicular mass. EXTREMITIES: n o clubbing, cyanosis, or edema. NEUROLOGIC: n onfocal, motor strength normal upper and lower extremities, sensory exam intact. Assessment: * Assessment: 1. A dult general medical exam - Z00.00 (Primary) 2 . T ype 2 diabetes mellitus without complication - E11.9 3 . B arrett's esophagus without dysplasia - K22.70 4 . D epression - F32.9 5 . P anlobular emphysema - J43.1 6 . C olon cancer screening - Z12.11 7 . D epression screening - Z13.31 8 . P ure hypercholesterolemia - E78.00 Plan: * Treatment: 2. T ype 2 diabetes mellitus without complication L AB: Microalbumin, Random (Collection Date & Time - 03/22/2025 09:30 AM) L AB: UA ClnCatch+Micro w/rflx Cult (Collection Date & Time - 03/22/2025 09:30 AM) 3. B arrett's esophagus without dysplasia Continue Omeprazole Capsule Delayed Release, 20 MG, TAKE 1 CAPSULE BY MOUTH ONCE DAILY. 4. D epression Continue Abilify Tablet, 5 MG, 1 tablet, Orally, Once a day; C ontinue FLUoxetine HCl Capsule, 40 MG, TAKE 1 CAPSULE BY MOUTH ONCE DAILY IN THE MORNING; C ontinue buPROPion HCl ER (XL) Tablet Extended Release 24 Hour, 300 MG, Take 1 tablet by mouth once daily, Orally, Once a day. 5. P anlobular emphysema Continue Symbicort Aerosol, 160-4.5 MCG/ACT, 2 puffs, Inhalation, twice a day; C ontinue Albuterol Sulfate HFA Aerosol Solution, 108 (90 Base) MCG/ACT, INHALE 2 PUFFS BY MOUTH EVERY 4 HOURS NEEDED, Inhalation, every 4 hrs; C ontinue Ipratropium-Albuterol Solution, 0.5-2.5 (3) MG/3ML, USE 1 AMPULE IN NEBULIZER 4 TIMES DAILY. 6. C olon cancer screening Notes: no stool, is schedule for colnoscopy 7. D epression screening Notes: negative screen 8. P ure hypercholesterolemia Continue Atorvastatin Calcium Tablet, 80 MG, TAKE 1 TABLET BY MOUTH ONCE DAILY; C ontinue Ezetimibe Tablet, 10 MG, TAKE 1 TABLET BY MOUTH ONCE DAILY. Notes: stable, will continue current regiment * Preventive Medicine: Diabetes Care Plan: P atient Lifestyle Goals N eeds to maintain diet control.?Treatment Goals A 1C< 7. B arriers N o specific barriers, doing well. S elf-Managment Plan I ncrease light exercise to 3 times a week for 30 minutes. E xpected Outcome maintaining stable blood sugar levels within a target range. * Follow Up: 6 Months * * The named appointment provid er may or may not be the originator of this progress note, and it is not deemed complete until electronically signed by the appointment provider. Sign off status: Pending * Provider: Nam Rodriguez MD Date: 05/23/2024 Generated for Carmel silver/Derek/Godfreyransmitting on: 05/23/2024 02:33 PM EST History and Physical Notes * HPI (History of Present Illness) Category Sub-Category Detail Notes Category Not es Symptom(s) patient is a 69 yo male here for annual visit woth review of recent ;abs and follow up of chronci issues here for yearly evaluation Depression Screening PHQ-9 Little inte rest or [...] Q-9 found negative result, no follow-up needed Patient Lifestyle Goals: Patient wants t o maintain a healthy emotional balance Barriers: No specific barriers , is motivated to feel better, works at this everyday Self-Managment Goals: Exercise at least 3xs per week SDOH Questions SDOH Questions In the past [...] thm, S1, S2 normal, no murmurs LUNGS: clear to auscultatio n bilaterally ABDOMEN: soft, nontender, non distended, bowel sounds present, normal, no organomegaly , no masses palpable NEUROLOGIC: nonfocal, motor stre ngth normal upper and lower extremities, sensory exam intact SKIN: warm and dry, no usha picious lesions EXTREMITIES: no clubbing, cyanosi s, or edema MALE GENITOURINARY: uncircumcised, no pe nile lesions or discharge, testes descended bilaterally, no testicular mass RECTAL EXAM: normal tone, no exte rnal hemorrhoids, no masses palpable, prostate normal, no stool. is going to have colonoscopy this year ORAL CAVITY: mucosa moist
[2025-03-22 11:23] LABS: Appearance Urine Cloudy; Glucose Urine UA Negative (Negative); PH 6.0 (5.0-9.0); Specific Gravity - Urine 1.010 (1.005-1.025)
[2025-03-22 12:25] LABS: Microalbum/Creatinine Ratio Ur 30.6 ug/mg cr (<30)
--- OUTSIDE RECORDS SUMMARY | 2025-03-22 14:33 | XMS_ITS | Patient Health Record ---
Author Organization [facility] Address [address] [place] [id number] Care Team Providers Care Wire Drawing Machine Tender Name Role Phone Gordy Rodriguez MD Primary Care Provider Ayden Bhat [phone] Allergies Allergen (clinical drug ingredient) Drug/Non Drug Allergy documented on EMR Reaction Allergy Type Onset Date Status codeine Codeine Sulfate Unknown Drug Allergy A ctive Keflex Unknown Drug Allergy Active Septra Unknown Drug Allergy Active Reason For Referral No Information Medications Medication SIG (Take, Route, Frequency, Duration) Notes Start Date End Date Status tylenol Active ProAir HFA 108 (90 Base) MCG/ACT Aerosol Solution 2 puffs as needed Inhalation every 6 hrs/prn Active FLUoxetine HCl 40 MG Capsule 1 capsule Orally Once a day; Duration: 30 day(s) Active Alfuzosin HCl ER 10 MG Tablet Extended Release 24 Hour 1 tablet immediately after the same meal Orally Once a day Active Metoprolol Succinate ER 50 MG Tablet Extended Release 24 Hour 1 tablet Orally Once a day Active Nitroglycerin 0.4 MG Tablet Sublingual as directed Sublingual prn Active Aspirin 81 MG Tablet Chewable 1 tablet Orally Once a day Active Lisinopril 5 MG Tablet 1 tablet Orally O nce a day Active Ezetimibe 10 MG Tablet 1 tablet Orally O nce a day; Duration: 30 day(s) Active Atorvastatin Calcium 80 MG Tablet 1 tablet Orally Once a day Active Omeprazole 20 MG Capsule Delayed Release Take 1 capsule by mouth once daily in the morning Orally Once a day; Duration: 90 days Active buPROPion HCl 300MG 1 tablet Orally once a day Active Immunizations Vaccine Route Administration Date Status Comme nts Influenza Unknown 01/24/2019 Administered Social History Tobacco Use: Social History Observation Description Date Details (start date - stop date) Former Smoker NA - NA Social History Tobacco Use: Social Info Question Answer Notes Tobacco Use/Smoking Patient is a former smoker How long has it been since you last smoked? > 10 years Additional Details Category Social Info Options Details Miscellaneous: Marital status: Occupation: retired Section Notes: Nonsmoker since 2010; no sig . alcohol Nonsmoker since 2010; no sig . alcohol Nonsmoker since 2010; no sig . alcohol Nonsmoker since 2010; no sig . alcohol Nonsmoker since 2010; no sig . alcohol Problems Problem Type SNOMED Code ICD Code Onset Dates Problem Status W/U Status Risk Notes Problem Diverticulitis of colon (383976041) Diverticulitis of large intestine without perforation or abscess without bleeding (K57.32) Active confirmed Problem Screening for malignant neoplasm of colon (982634237) Encounter for screening for malignant neoplasm of colon (Z12.11) Active confirmed Problem History of adenomatous polyp of colon (795770680) History of adenomatous polyp of colon (Z86.010) Active confirmed Problem Gastroesophageal reflux disease without esophagitis (941268152) Gastroesophageal reflux disease without esophagitis (K21.9) Active confirmed Problem Hernandez's esophagus (254393799) Barretts esophagus without dysplasia (K22.70) Active confirmed Problem Computed tomography result abnormal (126697480) Abnormal CT scan, colon (R93.3) Active confirmed Problem Achalasia (23739821) Achalasia (K22.0) Active confirmed Problem Dysphagia (22837565) Pharyngoesophageal dysphagia (R13.14) Active confirmed Problem Esophageal reflux finding (642378842) Gastroesophageal reflux (K21.9) Active confirmed Problem Esophageal dysphagia (22298472) Esophageal dysphagia (R13.10) Active confirmed Problem Hernandez's esophagus (530948363) Hernandez''s esophagus without dysplasia (K22.70) Active confirmed Plan Of Treatment Pending Test Test Name Order Date Esophageal Motility study 03/14/2019 XR BARIUM SWALLOW-ESOPHAGUS 03/14/2019 Future Test Test Name Order Date UPPER GI ENDOSCOPY 05/03/2013 COLONOSCOPY 05/03/2013 UPPER GI ENDOSCOPY BALLOOON DILATION OF ESOPH 03/13/2016 UPPER GI ENDOSCOPY BALL[place]ON DILATION OF ESOPH 03/14/2019 COLONOSCOPY 07/25/2019 UPPER GI ENDOSCOPY 04/15/2023 Insurance Providers Payer Name Payer Address Payer Phone Subscriber Number Group Number Insured Name Patient Relationship to Insured Coverage Start Date Coverage End Date [facility] [address] [place], [place] [phone] [id number] GABBY FAJARDO Self - patient is the insured Medical (General) History Medical History History ICD Code Coronary artery disease-had MA in 2001 a nd 2004--s/p stents-fine since 2004 Hernandez's esophagus--small area--has had EGD's in 2005 and 2007--small HH gastroesophageal reflux disease (GERD) BPH Depression Tubular adenomas removed in 01/2008--also noted to have diverticulosis and internal hemorrhoids HTN Denies DM,CVA,renal disease COPD/asthma Pulmonary emboli in 2011 Arthritis-knees, back Sleep apnea--has a CPAP mask, but not ve ry compliant with it 07/2013--EGD-small HH, no eso phagitis--tiny area of Hernandez's esophagus, no dysplasia 07/2013-1 small tubular adenoma, divertic ulosis Sigmoid diverrticulitis in 10/2015--outpt . antibiotics EGD in 03/2016--tortuous eso phagus, hiatal herna, no obstruction--dilated EGJ with a 20mm balloon, but no real effect--bx neg for Hernandez's Achalasia diagnosed in 03/24 19 upper endoscopy, barium swallow, and esophageal motility studies. He underwent a successful POEM procedure at [facility] with Drs. Marie and Cherri on 06/09/2019 Negative screening colonoscopy in 12/2019 Sigmoid diverticulitis in [address] scan Surgical History Surgery Date(Month/Year) Right thumb left 2015 Left knee replacement 03/2017 Right knee replacement 07/2017 3V CABG 11/2021--sees Dr. Martinez 2021
--- OUTSIDE RECORDS SUMMARY | 2025-03-22 14:34 | XMS_ITS | Patient Health Record ---
Author Organization Gordy Rodriguez MD Address [address] [place], [place] [id number] Care Team Providers Care Solution Design And Analysis Manager Name Role Phone Gordy Rodriguez Primary Care Provider [phone] Allergies Allergen (clinical drug ingredient) Drug/Non Drug Allergy documented on EMR Reaction Allergy Type Onset Date Status Septra rash Drug Allergy Active Keflex rash Drug Allergy Active codeine Codeine Sulfate rash Drug Allergy A ctive Results Component Value Reference Range Notes Liver Panel Reviewed date:09/07/2024 05:12:19 PM Interpretation: Performing Lab:[facility], [address] [place] [phone] Notes/Report: Bilirubin Total 0.4 0.0-1.0 mg/dL Bilirubin Direct 0.2 0.0-0.5 mg/dL Aspartate Amino Transferase 28 5-37 U/L Alanine Aminotransferase 17 0-40 U/L Total Protein 6.6 6.5-8.0 g/dL Albumin Level 3.6 3.5-5.0 g/dL Alkaline Phosphatase 61 39-117 U/L Glucose Fasting Reviewed date:09/07/2024 05:13:30 PM Interpretation: Performing Lab:[address] [phone] Notes/Report: Glucose Fasting 98 60-99 mg/dL Lipid Panel with Reflex Reviewed date:09/07/2024 05:12:30 PM Interpretation: Performing Lab:[address] [phone] Notes/Report: Triglycerides 102 <150 mg/dL Desirable Triglyceride: [...] A1c Reviewed date:09/07/2024 12:37:36 PM Interpretation: Performing Lab:[address] [phone] Notes/Report: Hemoglobin A1c % 5.5 <6.0 % [...] average glucose, using the formula of the T4J-Xwdmdeh Average Glucose study (ADAG), Diabetes Care, Vol.31,#8, Nov. 2007 Complete Blood Count Auto Di ff Reviewed date:03/15/2025 04:22:29 PM Interpretation: Performing Lab:[facility], [address] [place] [phone] Notes/Report: White Blood Count 6.6 4.8-10.8 X10*3/uL [...] Panel Reviewed date:03/15/2025 12:39:27 PM Interpretation: Performing Lab:[facility], [address] [place] [phone] Notes/Report: Triglycerides 115 <150 mg/dL Desirable Triglyceride: [...] (Free>4and<10) Reviewed date:03/15/2025 12:38:40 PM Interpretation: Performing Lab:[facility], [address] [place] [phone] Notes/Report: PSA,Total (Free>4and<10) 1.45 0.00-4.00 ng/mL A [...] A1c Reviewed date:03/15/2025 12:38:31 PM Interpretation: Performing Lab:[facility], [address] [place] [phone] Notes/Report: Hemoglobin A1c % 5.6 <6.0 % [...] average glucose, using the formula of the B3B-Nplwftn Average Glucose study (ADAG), Diabetes Care, Vol.31,#8, 2007 Microalbumin, Random (Not ye t reviewed by provider) Interpretation: Performing Lab:[facility], [address] [place] [phone] Notes/Report: Creatinine Urine 61.90 Microalbumin Urine 19.0 Microalbum/Creatinine Ratio Ur 30.6 <30 ug/mg cr Albumin/Creatinine Ratio Reference Ranges: Normal: < 30 ug/mg creatinine Microalbuminuria: 30 - 300 ug/mg creatinine Clinical Albuminuria: > 300 ug/mg creatinine UA ClnCatch+Micro w/rflx Cul t Reviewed date:03/22/2025 12:27:11 PM Interpretation: Performing Lab:[facility], [address] [place] [phone] Notes/Report: Urine, Clean Catch Color Urine Yellow Appearance Urine Cloudy PH 6.0 5.0-9.0 Glucose Urine UA Negative Negative mg/dL Urine Blood Negative Negative Specific [place] - Urine 1.010 1.005-1.025 Urine Protein Trace Neg-Trace mg/dL [place] noted in microscopic exam Urine Ketones Negative Negative mg/dL Nitrite Urine Negative Negative Leukocyte Esterase Urine Negative Negative RBC Urine 0-2 0-2 /HPF WBC Urine 0-5 0-5 /HPF Squamous Epithelial Cell Urine 0-2 0-2 /HPF Bacteria Urine None Seen None Seen Hyaline Casts Urine 6-10 0-2 /LPF CORRECTED REPORT Glucose, finger stick Reviewed date:11/20/2024 10:02:49 AM Interpretation: Performing Lab: Notes/Report: Value 133 Hold Gold Reviewed date:09/07/2024 12:37:09 PM Interpretation: Performing Lab:[facility], [address] [place] [phone] Notes/Report: Hold Gold See Note Specimen held untested for 24 hours; Call to request Chemistry testing. Comprehensive Met. Panel Reviewed date:03/15/2025 12:45:03 PM Interpretation: Performing Lab:[facility], [address] [place] [phone] Notes/Report: Sodium 140 135-145 mmol/L Potassium 4.1 3.3-5.1 mmol/L Chloride 105 96-108 mmol/L Carbon Dioxide 28 22-29 mmol/L Anion Gap 11 12-20 Blood Urea Nitrogen 12 9-16 mg/dL Creatinine 0.79 0.5-1.4 mg/dL Estimated Glomerular Filt Rate > 60 Chronic Kidney Disease: Estimated GFR < 60 mL/min/1.73m2 Severe Kidney Disease: Estimated GFR < 15 mL/min/1.73m2 Glucose Random 112 60-115 mg/dL Calcium 8.8 8.4-10.2 mg/dL Bilirubin Total 0.5 0.0-1.0 mg/dL Aspartate Amino Transferase 26 5-37 U/L Alanine Aminotransferase 23 0-40 U/L Total Protein 7.0 6.5-8.0 g/dL Albumin Level 3.8 3.5-5.0 g/dL Alkaline Phosphatase 60 39-117 U/L Reason For Referral No Information Medications Medication SIG (Take, Route, Frequency, Duration) Notes Start Date End Date Status Aspirin 81 MG 1 tablet Orally Once a day for 30 day(s) Active Abilify 5 MG 1 tablet Orally Once a day Active Ventolin HFA * 108 (90 Base) MCG/ACT 2 puffs as needed Inhalation every 4 hrs Not-Takin g Symbicort 160-4.5 MCG/ACT 2 puffs Inhala tion twice a day 09/14/2024 Active Acetaminophen 325 MG 3 tablet as needed Orally every 4 hrs Active Advair Diskus 250-50 MCG/ACT 1 puff Inhalation Twice a day Not-Taking Atorvastatin Calcium 80 MG TAKE 1 TABLET BY MOUTH ONCE DAILY Active Nitroglycerin 0.4 MG 1 tablet under the tongue and allow to dissolve as needed Sublingual as needed for 28 Active Alfuzosin HCl ER 10 MG TAKE 1 TABLET BY MOUTH ONCE DAILY IMMEDIATELY AFTER SAME MEAL EVERY DAY for 90 Active Ezetimibe 10 MG TAKE 1 TABLET BY ONCE DAILY Active Docusate Sodium 100 MG 1 capsule as need ed Orally twice a day Active Metoprolol Succinate ER 50 MG TAKE 1 TABLET BY MOUTH ONCE DAILY for 90 Active Omeprazole 20 MG TAKE 1 CAPSULE BY MO UTH ONCE DAILY Active FLUoxetine HCl 40 MG TAKE 1 CAPSULE BY M OUTH ONCE DAILY IN THE MORNING Active buPROPion HCl ER (XL) 300 MG Take 1 tablet by mouth once daily Orally Once a day Active Albuterol Sulfate HFA 108 (90 Base) MCG/ACT INHALE 2 PUFFS BY MOUTH EVERY 4 HOURS NEEDED Inhalation every 4 hrs Active Lasix 20 MG 1 tablet Orally Once a day for 30 day(s) Active Ipratropium-Albuterol 0.5-2.5 (3) MG/3ML USE 1 AMPULE IN NEBULIZER 4 TIMES DAILY Active Amiodarone HCl 200 MG 1 tablet Orally On a day Active Immunizations Vaccine Route Administration Date Status Comme nts Flu Vaccine Unknown 01/01/2011 Administered Flu Vaccine IM Intramuscular 12/22/2011 Administered Flu Vaccine IM Intramuscular 12/12/2012 Administered Flu Vaccine IM Intramuscular 01/22/2014 Administered Prevnar 13 IM Intramuscular 04/24/2014 Administered Fluarix Quadrivalent IM Intramuscular 01/22/2015 Administe red PPSV23 (Pnemovax) Unknown 12/24/2011 Administered [facility] Fluarix Quadrivalent IM Intramuscular 02/20/2016 Administe red Fluarix Quadrivalent IM Intramuscular 01/19/2017 Administe red PPSV23 (Pnemovax) IM Intramuscular 06/01/2017 Administered Fluarix Quadrivalent IM Intramuscular 12/14/2017 Administe red Fluarix Quadrivalent IM Intramuscular 12/20/2018 Administe red Fluarix Quadrivalent Unknown 01/16/2020 Administered CV S SARS-COV-2 Moderna Unknown 08/08/2020 Administered SARS-COV-2 Moderna Unknown 07/11/2020 Administered Fluarix Quadrivalent IM Intramuscular 12/23/2020 Administe red SARS-COV-2 Moderna Unknown 02/07/2021 Administered Influenza High Dose IM Intramuscular 12/16/2021 Administer ed Influenza High Dose IM Intramuscular 01/08/2023 Administer ed Influenza High Dose IM Intramuscular 01/10/2024 Administer ed TDaP Unknown 06/01/2017 Refused Social History Tobacco Use: Social History Observation [...] Problem Status W/U Status Risk Notes Problem Hernandez esophagus (669110695) Hernandez esophagus (530.85) Active confirmed Problem 34356581 Atherosclerotic heart disease of [place] coronary artery without angina pectoris (I25.10) Active confirmed Problem 416358671 Thrombocytopenia (D69.6) Active confirmed Problem 37107071 Depression (F32.9) Active confirmed Problem Shortness of breath (063120661) Shortness of breath (R06.02) Active confirmed Problem 44678999 Coronary atherosclerosis due to lipid rich plaque (I25.83) Active confirmed Problem 3517753 Panlobular emphy sema (J43.1) Active confirmed Problem 829399320 Hernandez's esopha aline without dysplasia (K22.70) Active confirmed Problem 9244890 Diverticulitis o f large intestine without perforation or abscess without bleeding (K57.32) Active confirmed Problem 954405062 Acanthosis nigri cans (L83) Active confirmed Problem Arthropathy (412252792) Arthropathy, unspecified (M12.9) Active confirmed Problem 163091121 Tubular adenoma of colon (D12.6) Active confirmed Problem 37789659 Type 2 diabetes mellitus without complication (E11.9) Active confirmed Problem 130055329 Low HDL (under 4 0) (E78.6) Active confirmed Problem 69294930 Diastasis recti (M62.08) Active confirmed Problem 424018366 History of pulmo nary embolus (PE) (Z86.711) Active confirmed Problem 425466567 Morbid obesity (E66.01) Active confir med Problem 038095823 Pure hypercholesterolemia (E78.00) Active confirmed Problem 650072044 Generalized arth ritis (M19.90) Active confirmed Problem 826456729 BMI 40.0-44.9, a dult (Z68.41) Active confirmed Problem 716319403 Body mass index (BMI) of 40.1 to 44.9 in adult (Z68.41) Active confirmed Problem Severe major depression (554303919) Severe major depression (F32.2) Active confirmed Problem Cough (85967954) Cough (R05.9) Active confirmed Vital Signs Blood pressure diastolic 70 mm Hg 03/22/2025 shyann ght is own 9 pounds since 11-20-24 Height 65 in 03/22/2025 weight is own 9 pounds since 11-20-24 Blood pressure systolic 116 mm Hg 03/22/2025 weig ht is own 9 pounds since 11-20-24 Weight 234 lbs 03/22/2025 weight is own 9 pounds since 11-20-24 BMI 38.94 kg/m2 03/22/2025 weight is own 9 pounds since 11-20-24 Encounters Encounter Location Date Provider Diagnosis Gordy Rodriguez MD [address] [place] [id number] 09/07/2024 Gordy Rodriguez Type 2 diabetes manuela itus without complication E11.9 and Pure hypercholesterolemia E78.00 Gordy Rodriguez MD [address] [id number] 03/15/2025 Gordy Rodriguez Blood tests for rout ine general physical examination Z00.00 ; Type 2 diabetes mellitus without complication E11.9 ; Low HDL (under 40) E78.6 and Thrombocytopenia D69.6 Gordy Rodriguez MD [address] [place] [id number] 03/22/2025 Gordy Rodriguez Adult general medica l exam Z00.00 ; Type 2 diabetes mellitus without complication E11.9 ; Hernandez's esophagus without dysplasia K22.70 ; Depression F32.9 ; Panlobular emphysema J43.1 ; Colon cancer screening Z12.11 ; Depression screening Z13.31 and Pure hypercholesterolemia E78.00 Gordy Rodriguez MD [address] [place] [id number] 09/14/2024 Gordy Rodriguez Type 2 diabetes manuela itus without complication E11.9 ; Panlobular emphysema J43.1 and Pure hypercholesterolemia E78.00 Gordy Rodriguez MD [address] [place] [id number] 11/20/2024 Gordy Rodriguez Type 2 diabetes manuela itus without complication E11.9 and Panlobular emphysema J43.1 Gordy Rodriguez MD [address] [place], [place] [id number] 05/25/2024 Gordy Rodriguez Panlobular emphysema J43.1 Gordy Rodriguez MD [address] [place] [id number] 06/19/2024 Gordy Rodriguez Assessments Encounter Date Diagnosis (ICD Code) Assessment Notes Treatment Notes Treatment Clinical Notes Section Notes 09/07/2024 Type 2 diabetes mellitus without complication (ICD-10 - E11.9) 03/15/20[address] tests [address] ine general physical examination (ICD-10 - Z00.00) 03/22/2025 Adult general medica l exam (ICD-10 - Z00.00) labs reviewed and discussed [facility] patient 03/22/2025 Type 2 diabetes mellitus without complication (ICD-10 - E11.9) 09/14/2024 Type 2 diabetes mellitus without complication (ICD-10 - E11.9) good aic even though he is eating poorly, advised on diet, will continue to monitor g 11/20/2024 Type 2 diabetes mellitus without complication (ICD-10 - E11.9) doing well, no need for medication at this time 05/25/2024 Panlobular emphysema (ICD-10 - J43.1) 09/07/2024 Pure hypercholesterolemia (ICD-10 - E78.00) 03/15/2025 Type 2 diabetes mellitus without complication (ICD-10 - E11.9) 03/22/2025 Hernandez's esophagus without dysplasia (ICD-10 - K22.70) 09/14/2024 Panlobular emphysema (ICD-10 - J43.1) patient verbalized understanding of instructions of medication have him use updraft at least twice a daystable 11/20/2024 Panlobular emphysema (ICD-10 - J43.1) doing much better on symbicort, will continue current regiment 03/15/2025 Low HDL (under 40) (ICD-10 - E78.6) 03/22/2025 Depression (ICD-10 - F32.9) 09/14/2024 Pure hypercholesterolemia (ICD-10 - E78.00) stable, will continue current regiment 03/15/2025 Thrombocytopenia (ICD-10 - D69.6) 03/22/2025 Panlobular emphysema (ICD-10 - J43.1) 03/22/2025 Colon cancer screeni ng (ICD-10 - Z12.11) no stool, is schedule for colnoscopy 03/22/2025 Depression screening (ICD-10 - Z13.31) negative screen 03/22/2025 Pure hypercholesterolemia (ICD-10 - E78.00) stable, will continue current regiment Plan Of Treatment Pending Test Test Name Order Date Electrocardiogram (EKG) 04/15/2017 Electrocardiogram (EKG) 11/07/2015 Electrocardiogram (EKG) 12/03/2016 CT ABD & PELVIS WITH CONTRAST 12/23/2020 Comprehensive [place]. Panel Fast Microalbumin, Random 03/22/2025 Microalbumin, Random 03/15/2025 US venous duplex LE RT 12/23/2020 UA ClnCatch+Micro w/rflx Cult 03/15/2025 Next Appt Details Provider Name:Gordy Murrell ier, 09/13/2025 07:00:00 AM, [address] [place] [address], [address], [phone], Provider Name:Gordy Murrell ier, 09/20/2025 10:00:00 AM, [address] [place] [address], [address], [phone], Provider Name:Gordy Murrell ier, 03/19/2026 07:30:00 AM, [address] [place] [address], [address], [phone], Provider Name:Gordy Murrell ier, 03/26/2026 09:30:00 AM, [address] [place] [address], [address], [phone], Insurance Providers Payer Name Payer Address Payer Phone Subscriber Number Group Number Insured Name Patient Relationship to Insured Coverage Start Date Coverage End Date [employer] [facility] [address] [facility] [place] [phone] [id number] Antoni Duque Self - patient is the insured Medical (General) History Medical History History ICD Code history of knee arthritis upper and lower endo 2013. due in 5 year s pulmonary emboli dec 2011 colonoscopy 10/10/2007; 07/06/19 14 - repeat 5 years; colonoscopy done 12/25/19 Dr. 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
== END 2025-03-22 11:08 | disposition home or self-care (01) ==
LOC: HO.LNP 11:07
PROVIDERS: Visit Provider Internal Medicine
DX: Z00.00 Encounter for general adult medical examination without abnormal findings (principal); E11.9 Type 2 diabetes mellitus without complications
CPT/HCPCS: 81001; 82043; 82570